=== PATIENT | male | born 1945 | race Caucasian/White ===

== ENCOUNTER 2020-11-02 10:27 | Outpatient (REF) | payer MEDICARE, SELFPAY ==
--- NOTE | ~2020-11-02 | XR_ITS ---
EXAMINATION: XR hand wrist LT CLINICAL INFORMATION: Fracture of unspecified carpal bone, unspecified wrist, initial encounter for closed fracture COMPARISON: None. TECHNIQUE: PA, oblique, lateral, and navicular views of the left hand and wrist FINDINGS: No acute fracture or dislocation seen. There is chronic appearing remodeling and erosion of the distal radius. There is widening of the scapholunate interval with interposition of the capitate. There is marked osteophytosis of the lateral aspect of the distal radius. There is mild degenerative arthrosis of the first carpometacarpal joint. There is severe joint space narrowing and slight subluxation of the distal phalanges at the second and fifth distal interphalangeal joints. XR/XR hand wrist LT IMPRESSION: No acute osseous abnormality seen. There is chronic appearing remodeling and erosion of the distal radial articular surface with widening of the scapholunate interval and interposition of the capitate. 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
== END 2020-11-02 10:28 | disposition home or self-care (01) ==
LOC: HO.XRAY 10:27
PROVIDERS: Visit Provider Internal Medicine
DX: S62.109A Fracture of unspecified carpal bone, unspecified wrist, initial encounter for closed fracture (principal)
CPT/HCPCS: 73110; 73130

== ENCOUNTER → 2020-11-11 09:31 | Outpatient (BNVA) | payer MEDICARE, SELFPAY | PROVIDERS: Visit Provider Orthopaedic Surgery | DX: R20.0 Anesthesia of skin (principal); R20.2 Paresthesia of skin; M19.132 Post-traumatic osteoarthritis, left wrist | CPT/HCPCS: 99202 ==

== ENCOUNTER 2020-12-23 08:56 | Outpatient (REF) | payer MEDICARE, SELFPAY ==
--- NOTE | 2020-12-23 08:59 | EMG_ITS ---
This is a 75-year-old man with 1-year history of numbness and tingling in the left hand. He fell 2 months ago, but did not have fracture. He has a right wrist fracture 20 years ago and has chronic pain there. The numbness and tingling are confined to the left hand. PHYSICAL EXAMINATION: On examination, he is alert and oriented with normal intellectual functions. Cranial nerves II through XII are normal. Muscle tone and strength are normal in all 4 extremities. Deep tendon reflexes symmetrical. Plantar response are flexor. There is mild weakness of the abductor pollicis brevis. IMPRESSION: Carpal tunnel syndrome. Nerve conduction EMG study: Moderate to severe carpal tunnel syndrome on the left. Normal EMG of the left C5-T1 innervated muscles. MD DEVIKA Colunga/INEZ / [id number]
== END 2020-12-23 08:57 | disposition home or self-care (01) ==
LOC: HO.NEURO 08:56
PROVIDERS: Visit Provider Orthopaedic Surgery
DX: R20.0 Anesthesia of skin (principal); R20.2 Paresthesia of skin
CPT/HCPCS: 95885; 95911

== ENCOUNTER → 2021-01-20 09:13 | Outpatient (BNVA) | payer MEDICARE, SELFPAY | PROVIDERS: PCP Physician Assistant; Referring Provider Internal Medicine; Visit Provider Internal Medicine | DX: Z13.89 Encounter for screening for other disorder (principal) | CPT/HCPCS: 93005; 99212 ==

== ENCOUNTER 2021-01-27 13:49 | Outpatient (REF) | payer MEDICARE, SELFPAY ==
--- NOTE | ~2021-01-27 | US_ITS ---
EXAMINATION: US EXTRACRANIAL CAROTID DUPLEX, BILATERAL CLINICAL INFORMATION: Stenosis and occlusion of the carotid arteries COMPARISON: None TECHNIQUE: Real-time ultrasound and Doppler techniques (integrating B-mode 2-D vascular images, Doppler spectral analysis and color-flow Doppler imaging) were utilized to interrogate the extracranial carotid arteries, the vertebral arteries and proximal subclavian arteries bilaterally. The degree of stenosis is determined by criteria similar to NASCET. FINDINGS: Right Side: 1. There is calcified atherosclerotic plaque seen in the bifurcation/proximal ICA region. 2. The common carotid artery PSV proximally is 91.9 cm/s and distally 78.9 cm/s. 3. The proximal internal carotid artery velocities are 161 cm/s systolic and 46.1 cm/s diastolic. 4. The proximal external carotid artery PSV is 160 cm/s. 5. The vertebral artery shows antegrade flow. 6. The subclavian artery waveforms are normal. Left Side: 1. There is calcified atherosclerotic plaque seen in the bifurcation/proximal ICA region. 2. The common carotid artery PSV proximally is 88.4 cm/s and distally 59.7 cm/s. 3. The proximal internal carotid artery velocities are 318 cm/s systolic and 58.8 cm/s diastolic. 4. The proximal external carotid artery PSV is 225.0 cm/s. 5. The vertebral artery shows antegrade flow. 6. The subclavian artery waveforms are normal. US/US carotid duplex BI IMPRESSION: 1. RIGHT: Moderate, hemodynamically significant stenosis of the proximal right internal carotid artery corresponding to a 50-79% stenosis by velocity criteria. 2. LEFT: Moderate, hemodynamically significant stenosis of the proximal left internal carotid artery corresponding to a 50-79% stenosis by velocity criteria.
== END 2021-01-27 13:50 | disposition home or self-care (01) ==
LOC: HO.US 13:49
PROVIDERS: Visit Provider Internal Medicine
DX: I65.23 Occlusion and stenosis of bilateral carotid arteries (principal)
CPT/HCPCS: 93880

== ENCOUNTER 2021-02-04 08:45 | Outpatient (REF) | payer MEDICARE, SELFPAY ==
--- NOTE | 2021-02-04 09:30 | ECG_ITS ---
Hook-up date: 2021-02-04 15:29:00 Duration: 47:59:00 Test Indications: PALPITATIONS Medications: 821014 QRS complexes 816 Ventricular ectopics which represent <1 % of total QRS comp. 152 Supraventricular ectopics which represent <1 % of total QRS comp. * Paced QRS complexs which represent % of total QRS comp. VENTRICULAR ECTOPY 778 Isolated 24 Bigeminal Cycles 20 Couplets 2 Runs 9 Beats in Runs 6 Beats LONGEST at 74 BPM at 23:53:45 2021-02-04 3 Beats FASTEST at 83 BPM at 00:08:19 2021-02-06 SUPRAVENTRICULAR ECTOPY 114 Isolated 5 Couplets 6 Runs 28 Beats in Runs 9 Beats LONGEST at 67 BPM at 01:10:52 2021-02-06 3 Beats FASTEST at 141 BPM at 10:17:11 2021-02-06 HEART RATES 53 MIN at 20:17:23 2021-02-04 70 AVG 118 MAX at 15:02:02 2021-02-05 LONGEST RR 1.3200 secs at 22:10:35 2021-02-04 S-T LEVELS Channel 1 - 128 mm at 15:29:00 2021-02-04 - 128 mm at 15:29:00 2021-02-04 Channel 2 - 128 mm at 15:29:00 2021-02-04 - 128 mm at 15:29:00 2021-02-04 Channel 3 - 128 mm at 03:44:81 -- - 128 mm at 03:44:81 Basic rhythm Normal sinus rhythm No long pause or profound bradycardia Frequent Sinus bradycardia , 29% of time HR < 60 bpm Occasional Premature ventricular complexes 2 brief runs of AIVR at 83 bpm Patient did not report any symptoms in the diary Referred By: Haim Wilson Overread By: MIGUEL CATHERINE MD
[2021-02-04 10:14] LABS: Alanine Aminotransferase 17 U/L (0-40); Albumin Level 3.7 g/dL (3.5-5.0); Alkaline Phosphatase 57 U/L (39-117); Anion Gap 12 (12-20); Aspartate Amino Transferase 27 U/L (5-37); Bilirubin Total 0.8 mg/dL (0.0-1.0); Blood Urea Nitrogen 20 mg/dL (9-16); Calcium 8.8 mg/dL (8.4-10.2); Carbon Dioxide 27 mmol/L (22-29); Chloride 105 mmol/L (96-108); Cholesterol 100 mg/dL; Estimated Glomerular Filt Rate > 60; Glucose Fasting 94 mg/dL (60-99); HDL Cholesterol 37 mg/dL; LDL Cholesterol Calculated 43 mg/dl; Potassium 4.3 mmol/L (3.3-5.1); Sodium 140 mmol/L (135-145); Total Protein 6.3 g/dL (6.5-8.0); Triglycerides 102 mg/dL
== END 2021-02-04 08:46 | disposition home or self-care (01) ==
LOC: HO.CARD 08:45
PROVIDERS: Absent Provider Internal Medicine; PCP Internal Medicine; Visit Provider Nurse Practitioner Family
DX: I65.23 Occlusion and stenosis of bilateral carotid arteries (principal); R00.2 Palpitations
CPT/HCPCS: 36415; 80053; 80061; 93226

== ENCOUNTER → 2021-02-12 12:43 | Outpatient (REF) | payer MEDICARE, SELFPAY ==
--- NOTE | 2021-02-12 12:46 | CA_ITS ---
Transthoracic Echocardiogram Patient (Last, First, Middle): Ag Andrade D Gender: Male Date of : 1945 Age: 75 Procedure Date: 02/12/2021 Procedure Type: Transthoracic Echocardiogram Location: OP Height: 177.8 cm Weight: 63.5 kg BSA: 1.79 m2 Heart Rate: bpm BP: 140 / 80 mmHg Park [employer] Ranger: SACHIN Referring MD: Haim Wilson MD Symptoms: I35.0 - Nonrheumatic aortic (valve) stenosis Study Quality: Fair Conclusions: - Normal left ventricular size and systolic function. - E/E prime ratio is between 8 and 15 consistent with indeterminate filling pressures. - Normal right ventricular cavity size and systolic function. - There is mild to moderate aortic valve stenosis. The peak aortic velocity is 2.71 m/s. The aortic valve area is 1.68 cm2. - There is moderate mitral annular calcification. There is trace mitral valve regurgitation. - There is a small loculated pericardial effusion overlying the right ventricle. There are no definitive echocardiographic findings of tamponade physiology. Findings Left Ventricle Normal left ventricular size and systolic function. The visually estimated ejection fraction is between 65-70%. There is no evidence of regional wall motion abnormalities. Abnormal diastolic function is noted. Spectral Doppler is indicative of an impaired relaxation filling pattern. E/E prime ratio is between 8 and 15 consistent with indeterminate filling pressures. Right Ventricle Normal right ventricular cavity size and systolic function. Atria Both atria are normal in size. Aortic Valve There is mild calcification of the aortic valve. There is mild thickening of the aortic valve. There is mild to moderate aortic valve stenosis. The peak aortic velocity is 2.71 m/s. The aortic valve area is 1.68 cm2. There is no aortic valve regurgitation. Mitral Valve There is moderate mitral annular calcification. There is trace mitral valve regurgitation. There is no mitral valve stenosis. Pulmonic Valve The pulmonic valve is likely normal. Tricuspid Valve Normal tricuspid valve structure and function. There is trace tricuspid valve regurgitation. Normal right atrial pressure. There is no evidence of pulmonary hypertension. Great Vessels The pulmonary artery was not well visualized. There is mild dilatation of the ascending aorta. Venous The inferior vena cava is normal in size and collapses greater than 50% with inspiration. Pericardium/Pleural There is a small loculated pericardial effusion overlying the right ventricle. There are no definitive echocardiographic findings of tamponade physiology. Prior Study Comparison Changes noted compared to prior study dated: 10/30/2019. Mild to moderate present. Small pericardial effusion noted. Measurements 2D Linear Measurements IVSd: 1.24 0.6-0.9/0.6-1.0 cm LVIDd: 3.87 3.9-5.3/4.2-5.9 cm LVIDd Index: 2.16 2.4-3.2/2.2-3.1 cm/m2 LVIDs: 2.65 2.0-3.6 cm LVPWd: 1.14 0.7-1.1 cm Ao Root: 4.00 2.1-3.5 cm LA Diam: 3.20 2.7-3.8/3.0-4.0 cm LAIDs Index: 1.79 1.5-2.3 cm/m2 LV Mass: 193.63 67-162/88-224 g LV Mass Index: 108.17 43-95/49-115 g/m2 LVOT Diam: 2.10 3.0+(-)1.3 cm 2D Systolic Function EF 4C: 56.20 >55% EF 2C: 62.30 >55% EF BiP: 60.10 >55% Mitral Valve MV Pk E: 0.51 MV PK A: 0.83 MV Decel Time: 296.00 E/A: 0.60 E'Lateral: 4.13 E'Medial: 3.05 E/E' Med: 16.90 E/E' Lat: 12.40 PHT: 87.00 MVA PHT: 2.53 Decel [place]: 1.74 Aortic Valve AoV Pk Keith: 2.71 AoV Mn Keith: 1.59 AoV VTI: 0.46 AoV Pk Grad: 29.00 Aov Mn Grad: 13.00 WANDER Cont.VTI: 1.68 LVOT LVOT Pk Keith: 1.08 LVOT Mn Keith: 0.82 LVOT VTI: 0.22 LVOT Pk Grad: 5.00 LVOT Mn Grad: 3.00 LVOT Diam: 2.10 LVOT Area: 3.46 Diastolic Function MV Pk E: 0.51 MV Pk A: 0.83 E/A: 0.60 E'Medial: 3.05 E/E' Med: 16.90 E' Laterial: 4.13 E/E' Lat: 12.40 Tricuspid Valve TR Pk Keith: 2.29 TR Pk Grad: 21.00 RA Press: 3.00 RVSP: 24.00 Great Vessels Aorta Ao Root-2D: 4.00 2.0-3.7 cm Ao Asc: 3.90 2.1-3.4 cm Updated in Other Vendor System with Status of Final Sam Giang MD electronically signed on 02/14/2021 8:54:45 PM with status of Final
== END ==
LOC: HO.CARD 12:43
PROVIDERS: Visit Provider Internal Medicine
DX: I35.0 Nonrheumatic aortic (valve) stenosis (principal); I25.10 Atherosclerotic heart disease of native coronary artery without angina pectoris; I71.4 Abdominal aortic aneurysm, without rupture; I10 Essential (primary) hypertension; I65.23 Occlusion and stenosis of bilateral carotid arteries; R00.2 Palpitations; Z79.899 Other long term (current) drug therapy
CPT/HCPCS: 93005; 93306; 99212

== ENCOUNTER → 2021-02-23 14:47 | Outpatient (BNVA) | payer MEDICARE, SELFPAY | PROVIDERS: PCP Internal Medicine; Referring Provider Internal Medicine; Visit Provider Internal Medicine | DX: I25.10 Atherosclerotic heart disease of native coronary artery without angina pectoris (principal); I35.0 Nonrheumatic aortic (valve) stenosis; I77.810 Thoracic aortic ectasia; I71.4 Abdominal aortic aneurysm, without rupture; I10 Essential (primary) hypertension; I65.23 Occlusion and stenosis of bilateral carotid arteries; R00.2 Palpitations | CPT/HCPCS: 99212 ==

== ENCOUNTER 2021-03-15 10:42 | Emergency (ER) | payer MEDICARE, SELFPAY ==
[2021-03-15 10:51] VITALS: BP 168/96; PULSE 88; RESP 18; TEMP 36.6; O2SAT 98; BMI 20.7
--- NOTE | 2021-03-15 12:08 | ED_ITS ---
HPI - Wound/Laceration General Chief Complaint: Wound/Laceration Stated Complaint: HAND LACERATION Time Seen by Provider: 03/15/21 12:08 History of Present Illness HPI narrative: patient complains of skin tear to the back of the left hand when he cut it on a tree branch while gardening just this morning 2 hours ago, no numbness weakness or tingling, no joint pain, no problem moving fingers and wrist Related Data Previous Rx's Medication Instructions Recorded rosuvastatin 10 mg tablet 10 mg PO DAILY 90 Days #90 tab 09/28/20 omeprazole 20 mg capsule,delayed 20 mg PO DAILY #90 cap 11/11/20 release lisinopril 20 mg tablet 40 mg PO DAILY #180 cap 11/19/20 aspirin 81 mg tablet,delayed 81 mg PO DAILY #90 cap 12/09/20 release budesonide-formoterol HFA 160 2 puff PO BID #30.6 cap 12/18/20 mcg-4.5 mcg/actuation aerosol inhaler tamsulosin 0.4 mg capsule 0.8 mg PO DAILY #180 cap 12/24/20 albuterol sulfate 90 mcg/actuation 2 puff INHALATION Q6H PRN #8.5 cap 02/03/21 aerosol inhaler zolpidem 5 mg tablet 5 mg PO BEDTIME #90 tab 02/03/21 lorazepam 0.5 mg tablet 0.5 mg PO BEDTIME #30 tab 03/25/21 metoprolol succinate 50 mg 50 mg PO DAILY #90 tab 03/25/21 tablet,extended release 24 hr Allergies Allergy/AdvReac Type Severity Reaction Status Date / Time penicillin G [Penicillin G] Allergy Severe ANAPHYLAXIS Verified 11/02/20 10:14 penicillamine Allergy Unknown anaphylaxis Verified 11/02/20 10:14 penicillin V Allergy Unknown anphylaxis Verified 11/02/20 10:14 Review of Systems Review of Systems: Positive for left hand skin tear Negatives are no fever no chills no dizziness no weakness no headache no neck pain no back pain no numbness weakness or tingling no joint pains Yes all other systems are reviewed and are negative [facility] Past Medical History Source: nursing notes reviewed Medical History (Updated 03/16/21 @ 00:01 by Ryan Price) Abdominal aortic aneurysm without rupture Anxiety and depression 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 Father No problems noted. Social History Social History (Updated 02/23/21 @ 15:09 by EDUARDO Aranda) Alcohol intake: never Patient Tobacco Use Status: Never used Tobacco Physical Exam Vital Signs: Vital Signs: Last Vital Signs Temp 98 F 03/15/21 10:51 Pulse 88 03/15/21 10:51 Resp 18 03/15/21 10:51 BP 168/96 H 03/15/21 10:51 Pulse Ox 98 03/15/21 10:51 Body Mass Index 20.7 General appearance is no acute distress Head is normocephalic atraumatic Neck is supple Respiratory no distress Extremities the left hand dorsal hand has a 3 cm skin tear with no significant bleeding, the hand has full range of motion there is tongue no tenderness or swelling and neurovascular intact distal with normal tendon function on both flexion and extension Course Course Course Narrative: The left hand skin tears cleansed and irrigated with normal saline, it is explored for foreign body there is non The skin is peeled back with a tweezer into its appropriate place and then closed with Steri-Strips and a bandage was applied Discharge Plan Discharge Clinical Impression: Skin tear Patient Disposition: Home, Self-Care Additional Instructions: we taped the torn skin together tape can be removed in 7-10 days at primary doctor's office Best plan is do this at the primary doctor so he can check if the skin is healing and make sure he does not open the wound when he removes the tape Return any time for redness swelling any sign of infection You got a tetanus shot Prescriptions: No Action rosuvastatin 10 mg tablet 10 mg PO DAILY 90 Days Qty: 90 RF: 3 omeprazole 20 mg capsule,delayed release(DR/EC) 20 mg PO DAILY Qty: 90 RF: 1 lisinopril 20 mg tablet 40 mg PO DAILY Qty: 180 RF: 1 aspirin 81 mg tablet,delayed release (DR/EC) 81 mg PO DAILY Qty: 90 RF: 3 budesonide-formoterol [Symbicort] 160-4.5 mcg/actuation HFA aerosol inhaler 2 puff PO BID Qty: 30.6 RF: 1 tamsulosin 0.4 mg capsule 0.8 mg PO DAILY Qty: 180 RF: 0 albuterol sulfate 90 mcg/actuation HFA aerosol inhaler 2 puff inhalation Q6H PRN (Reason: for muscle spasm) Qty: 8.5 RF: 1 zolpidem 5 mg tablet 5 mg PO BEDTIME Qty: 90 RF: 0 lorazepam 0.5 mg tablet 0.5 mg PO BEDTIME Qty: 30 RF: 0 metoprolol succinate 50 mg tablet extended release 24 hr 50 mg PO DAILY Qty: 90 RF: 1 Interventions: ED Discharge Assessment Last Done: 03/15/21 13:22 Discharge Date/Time: 03/15/21 13:23
[2021-03-15] MEDS: Diphth,Pertus(ACell),Tet Adult 0.5 ML SYRINGE IM (12:41)
== END 2021-03-15 13:23 | disposition home or self-care (01) ==
PROVIDERS: Emergency Provider Emergency Medicine; PCP Internal Medicine
DX: S61.412A Laceration without foreign body of left hand, initial encounter (principal); W45.8XXA Other foreign body or object entering through skin, initial encounter; Y93.H2 Activity, gardening and landscaping; Y92.017 Garden or yard in single-family (private) house as the place of occurrence of the external cause; Y99.9 Unspecified external cause status
CPT/HCPCS: 90471; 90715; 99283; 99284

== ENCOUNTER 2021-04-26 07:42 | Outpatient (REF) | payer MEDICARE, SELFPAY ==
--- NOTE | ~2021-04-26 | US_ITS ---
EXAMINATION: US ABDOMINAL AORTA CLINICAL INFORMATION: This is a 76-year-old male with an abdominal aortic aneurysm. The patient is status post EVAR. COMPARISON: Comparison is made to the most recent study which is a CTA dated 07/06/2018 which measure the aneurysm as 9.2 x 8.9 cm. TECHNIQUE: Grayscale, color Doppler and spectral Doppler evaluation of the abdominal aorta. FINDINGS: There is a 9.7 x 9.6 cm abdominal aortic aneurysm present. The EVAR is seen centrally within the aneurysm. Blood flow is seen within the lumen. No definite blood flow is seen in the aneurysm sac to suggest an endoleak. Measurements of the aorta in maximum AP and transverse dimensions respectively are as follows: PROXIMAL: 2.6 x 2 point cm. MID: 9.7 x 9.6 cm. DISTAL: Could not be measured. The measurements of the common iliac arteries could not be obtained. US/US abdominal aortic aneurysm IMPRESSION: 1. There is a 9.7 x 9.6 cm infrarenal abdominal aortic aneurysm. The patient is status post EVAR. No endoleak could be detected by ultrasound. Although different techniques were utilized, the aneurysm appears increased in size based on a previous CT scan which measured at 9.2 x 8.9 cm.
== END 2021-04-26 07:43 | disposition home or self-care (01) ==
LOC: HO.US 07:42
PROVIDERS: Visit Provider Surgery Vascular Surgery
DX: I65.23 Occlusion and stenosis of bilateral carotid arteries (principal)
CPT/HCPCS: 76706

== ENCOUNTER 2022-01-03 11:04 | Outpatient (REF) | payer MEDICARE, SELFPAY ==
[2022-01-03 11:52] LABS: Hematocrit 39.9 % (42.0-52.0); Hemoglobin 12.8 g/dl (14.0-18.0); Mean Corpuscular HGB Conc 32.1 g/dl (31.0-36.0); Mean Corpuscular Hemoglobin 29.5 pg (27.0-33.0); Mean Corpuscular Volume 91.9 fL (80.0-98.0); Mean Platelet Volume 12.9 fL (9.4-12.4); Platelet Count 125 X10*3/uL (160-400); Red Blood Count 4.34 X10*6/uL (4.60-5.80); Red Cell Distribution Width 14.8 % (11.0-16.0); White Blood Count 8.1 X10*3/uL (4.8-10.8)
[2022-01-03 12:41] LABS: Alanine Aminotransferase 17 U/L (0-40); Albumin Level 3.5 g/dL (3.5-5.0); Alkaline Phosphatase 58 U/L (39-117); Anion Gap 10 (12-20); Aspartate Amino Transferase 26 U/L (5-37); Bilirubin Direct 0.4 mg/dL (0.0-0.5); Bilirubin Total 0.9 mg/dL (0.0-1.0); Blood Urea Nitrogen 23 mg/dL (9-16); Calcium 8.7 mg/dL (8.4-10.2); Carbon Dioxide 28 mmol/L (22-29); Chloride 105 mmol/L (96-108); Cholesterol 104 mg/dL; Estimated Glomerular Filt Rate > 60; Glucose Random 88 mg/dL (60-115); HDL Cholesterol 41 mg/dL; LDL Cholesterol Calculated 46 mg/dl; Potassium 4.3 mmol/L (3.3-5.1); Sodium 139 mmol/L (135-145); Total Protein 6.3 g/dL (6.5-8.0); Triglycerides 86 mg/dL
[2022-01-03 12:45] LABS: Thyroid Stimulating Hormone 2.69 uIU/mL (0.32-4.0)
[2022-01-03 12:50] LABS: Appearance Urine CLEAR; Color Urine YELLOW; Glucose Urine UA NEG (NEG); Leukocyte Esterase Urine NEG (NEG); Nitrite Urine NEG (NEG); PH 6.5 (5.0-8.0); Specific Gravity - Urine 1.015 (1.005-1.025); Urine Blood TRACE (NEG); Urine Ketones 5 MG/DL (NEG); Urine Protein NEG (NEG-TRACE)
[2022-01-03 13:52] LABS: Hyaline Casts Urine 0-2 /LPF; Mucus Urine 1+ /LPF; Squamous Epithelial Cell Urine TRACE /LPF; WBC Urine 0-2 /HPF (0-4)
== END 2022-01-03 11:05 | disposition home or self-care (01) ==
LOC: HO.LAB 11:04
PROVIDERS: PCP Internal Medicine; Visit Provider Internal Medicine
DX: F41.1 Generalized anxiety disorder (principal); I10 Essential (primary) hypertension
CPT/HCPCS: 36415; 80048; 80061; 80076; 81001; 84443; 85027

== ENCOUNTER 2022-09-09 16:05 | Emergency (ER) | payer MEDICARE, SELFPAY | END 2022-09-09 18:35 | disposition left against medical advice (07) | PROVIDERS: Emergency Provider Emergency Medicine; PCP Internal Medicine | DX: M79.671 Pain in right foot (principal); R60.0 Localized edema ==

== ENCOUNTER 2022-09-28 08:12 | Outpatient (REF) | payer MEDICARE, SELFPAY ==
[2022-09-28 10:52] LABS: MANUAL DIFF FLAG NO
[2022-09-28 11:06] LABS: Basophils Percent Auto 0.2 % (0-2); Eosinophils Absolute Auto 0.2 X10*3/uL (0.0-0.4); Eosinophils Percent Auto 1.9 % (0-4); Hematocrit 41.2 % (42.0-52.0); Hemoglobin 13.5 g/dl (14.0-18.0); Imm Gran Abs Auto 0.03 X10*3/uL (0.00-0.03); Imm Gran Pct Auto 0.3 % (0.0-0.4); Lymphocytes Absolute Auto 1.6 X10*3/uL (1.2-4.9); Lymphocytes Percent Auto 17.2 % (20-40); Mean Corpuscular HGB Conc 32.8 g/dl (31.0-36.0); Mean Corpuscular Hemoglobin 29.9 pg (27.0-33.0); Mean Corpuscular Volume 91.4 fL (80.0-98.0); Mean Platelet Volume 12.8 fL (9.4-12.4); Monocytes Absolute Auto 0.9 X10*3/uL (0.1-1.2); Monocytes Percent Auto 10.4 % (2-11); Neutrophils Absolute Auto 6.3 x10*3/uL (2.0-8.3); Platelet Count 130 X10*3/uL (160-400); Red Blood Count 4.51 X10*6/uL (4.60-5.80); Red Cell Distribution Width 14.1 % (11.0-16.0); White Blood Count 9.1 X10*3/uL (4.8-10.8)
[2022-09-28 11:15] LABS: Alanine Aminotransferase 16 U/L (0-40); Albumin Level 3.6 g/dL (3.5-5.0); Alkaline Phosphatase 63 U/L (39-117); Anion Gap 11 (12-20); Aspartate Amino Transferase 25 U/L (5-37); Bilirubin Total 0.9 mg/dL (0.0-1.0); Blood Urea Nitrogen 20 mg/dL (9-16); Calcium 9.1 mg/dL (8.4-10.2); Carbon Dioxide 30 mmol/L (22-29); Chloride 102 mmol/L (96-108); Cholesterol 131 mg/dL; Estimated Glomerular Filt Rate > 60; Glucose Fasting 98 mg/dL (60-99); Glucose Random 97 mg/dL (60-115); HDL Cholesterol 41 mg/dL; LDL Cholesterol Calculated 73 mg/dl; Potassium 4.2 mmol/L (3.3-5.1); Sodium 139 mmol/L (135-145); Total Protein 6.4 g/dL (6.5-8.0); Triglycerides 86 mg/dL
[2022-09-28 11:40] LABS: TSH reflex Free T4 4.44 uIU/mL (0.32-4.0)
[2022-09-28 13:16] LABS: Free T4 (Free Thyroxine) 0.88 ng/dL (0.71-1.85)
== END 2022-09-28 08:13 | disposition home or self-care (01) ==
LOC: HO.10HDL 08:12
PROVIDERS: Absent Provider Nurse Practitioner Family; Visit Provider Nurse Practitioner Family
DX: Z13.0 Encounter for screening for diseases of the blood and blood-forming organs and certain disorders involving the immune mechanism (principal); Z13.1 Encounter for screening for diabetes mellitus; E03.9 Hypothyroidism, unspecified; E78.00 Pure hypercholesterolemia, unspecified; I10 Essential (primary) hypertension
CPT/HCPCS: 36415; 80048; 80053; 80061; 84439; 84443; 85025

== ENCOUNTER 2022-10-17 09:41 | Outpatient (REF) | payer MEDICARE, SELFPAY ==
--- NOTE | ~2022-10-17 | US_ITS ---
EXAMINATION: US EXTRACRANIAL CAROTID DUPLEX, BILATERAL CLINICAL INFORMATION: Carotid stenosis. COMPARISON: 01/27/2021 TECHNIQUE: Real-time ultrasound and Doppler techniques (integrating B-mode 2-D vascular images, Doppler spectral analysis and color-flow Doppler imaging) were utilized to interrogate the extracranial carotid arteries, the vertebral arteries and proximal subclavian arteries bilaterally. The degree of stenosis is determined by criteria similar to NASCET. FINDINGS: RIGHT SIDE: 1. There is moderate atherosclerotic plaque seen in the bifurcation/proximal ICA region. 2. The common carotid artery PSV proximally is 76 cm/s and distally 62 cm/s. 3. The proximal internal carotid artery velocities are 148 cm/s systolic and 37 cm/s diastolic. 4. The proximal external carotid artery PSV is 230 cm/s. 5. The vertebral artery shows antegrade flow. 6. The subclavian artery waveforms are normal. LEFT SIDE: 1. There is moderate atherosclerotic plaque seen in the bifurcation/proximal ICA region. 2. The common carotid artery PSV proximally is 75 cm/s and distally 58 cm/s. 3. The proximal internal carotid artery velocities are 386 cm/s systolic and 103 cm/s diastolic (previously 318/59). 4. The proximal external carotid artery PSV is 260 cm/s. 5. The vertebral artery shows antegrade flow. 6. The subclavian artery waveforms are normal. US/US carotid duplex BI IMPRESSION: 1. RIGHT: Minimal, non-hemodynamically significant stenosis of the proximal right internal carotid artery corresponding to a < 50% stenosis by velocity criteria. 2. LEFT: Moderate, hemodynamically significant stenosis of the proximal left internal carotid artery corresponding to a 50-99 percent stenosis by velocity criteria. 3. Bilateral external carotid artery stenoses. 4. Compared to the 01/27/2021 study, there has been no significant interval change in disease categories.
--- NOTE | ~2022-10-17 | US_ITS ---
EXAMINATION: US RETROPERITONEAL LIMITED (AORTA) CLINICAL INFORMATION: Status post EVAR. COMPARISON: US retroperitoneal limited (aorta) 04/26/2021. TECHNIQUE: Mishra-scale, color Doppler and spectral Doppler evaluation of the abdominal aorta. FINDINGS: The measurements of the aorta in maximum AP and transverse dimensions respectively are as follows: Proximal: 2.2 x 3.1 cm. Mid: 80.7 x 8.7 cm. Distal: 8.3 x 10.3 cm. PSV: 30 cm/s. The measurements of the common iliac arteries in maximum AP and TRV dimensions are as follows: Right Common Iliac Artery: 1.6 x 1.3 cm. Left Common Iliac Artery: 1.5 x 1.5 cm. US/US abdominal aortic aneurysm IMPRESSION: Endovascular aortic repair. The aneurysm sac measures 8.7 x 7.1 c. No visible color-flow within the excluded aneurysm sac. Previously, the sac measured 9.7 x 9.6 cm.
== END 2022-10-17 09:42 | disposition home or self-care (01) ==
LOC: HO.US 09:41
PROVIDERS: PCP Internal Medicine; Visit Provider Surgery Vascular Surgery
DX: I65.23 Occlusion and stenosis of bilateral carotid arteries (principal); Z95.828 Presence of other vascular implants and grafts
CPT/HCPCS: 76706; 93880

== ENCOUNTER → 2022-10-26 13:42 | Outpatient (REF) | payer MEDICARE, SELFPAY ==
--- NOTE | 2022-10-26 13:45 | CA_ITS ---
Transthoracic Echocardiogram Patient (Last, First, Middle): Ag Andrade D Gender: Male Date of : 1945 Age: 77 Procedure Date: 10/26/2022 Procedure Type: Transthoracic Echocardiogram Location: OP Height: 175.26 cm Weight: 58.97 kg BSA: 1.72 m2 Heart Rate: bpm BP: 130 / 70 mmHg Carton Marker Machine: TO Referring MD: Haim Wilson MD Script Supervisor: Jayme Valdovinos MD Symptoms: I35.0 - Nonrheumatic aortic (valve) stenosis Study Quality: Fair ECG Rhythm: Sinus Conclusions: - 1. Normal LV systolic function with impaired relaxation filling pattern with moderate asymmetric septal hypertrophy 2. Moderate calcific aortic stenosis 3. Moderate mitral annular calcification 4. Normal RV systolic pressure 5. No gross pericardial effusion Findings Left Ventricle Normal left ventricular size, thickness, and systolic function. The visually estimated ejection fraction is between 65-70%. Spectral Doppler is indicative of an impaired relaxation filling pattern. There is moderate septal asymmetric hypertrophy. Right Ventricle Normal right ventricular cavity size and systolic function. Atria The left atrium is normal in size. Interatrial shunt cannot be excluded. The right atrium is normal in size. Aortic Valve There is moderate calcification of the aortic valve. There is moderate aortic valve stenosis. The peak aortic gradient is 39 mmHg.The mean gradient is 20 mmHg. The aortic valve area is 1.41 cm2. There is trace (trivial) aortic valve regurgitation. Mitral Valve There is mild anterior and moderate posterior mitral leaflet thickening. There is moderate mitral annular calcification. There is trace mitral valve regurgitation. There is no mitral valve stenosis. Pulmonic Valve The pulmonic valve was not well visualized. Tricuspid Valve Normal tricuspid valve structure. There is mild tricuspid valve regurgitation. The right ventricular systolic pressure is normal. The right ventricular systolic pressure is 25 mmHg. Normal right atrial pressure. There is no evidence of pulmonary hypertension. Great Vessels All visible segments of the aorta are normal in size. The pulmonary artery was not well visualized. Venous The inferior vena cava is normal in size and collapses greater than 50% with inspiration. Pericardium/Pleural There is no evidence of pericardial effusion. Prior Study Comparison Changes noted compared to prior study dated: 02/12/2021. aortic stenosis is of moderate severity Measurements 2D Linear Measurements IVSd: 1.52 0.6-0.9/0.6-1.0 cm LVIDd: 3.90 3.9-5.3/4.2-5.9 cm LVIDd Index: 2.27 2.4-3.2/2.2-3.1 cm/m2 LVIDs: 2.23 2.0-3.6 cm LVPWd: 1.03 0.7-1.1 cm LA Diam: 3.60 2.7-3.8/3.0-4.0 cm LAIDs Index: 2.09 1.5-2.3 cm/m2 LV Mass: 217.38 67-162/88-224 g LV Mass Index: 126.38 43-95/49-115 g/m2 LVOT Diam: 2.20 3.0+(-)1.3 cm Mitral Valve MV Pk E: 0.49 MV PK A: 0.93 MV Decel Time: 273.00 E/A: 0.50 E'Lateral: 3.70 E'Medial: 4.13 E/E' Med: 11.80 E/E' Lat: 13.20 PHT: 80.00 MVA PHT: 2.75 Decel Gregory: 1.79 Aortic Valve AoV Pk Keith: 3.12 AoV Mn Keith: 2.05 AoV VTI: 0.62 AoV Pk Grad: 39.00 Aov Mn Grad: 20.00 WANDER Cont.VTI: 1.41 LVOT LVOT Pk Keith: 1.03 LVOT Mn Keith: 0.70 LVOT VTI: 0.23 LVOT Pk Grad: 4.00 LVOT Mn Grad: 2.00 LVOT Diam: 2.20 LVOT Area: 3.80 Diastolic Function MV Pk E: 0.49 MV Pk A: 0.93 E/A: 0.50 E'Medial: 4.13 E/E' Med: 11.80 E' Laterial: 3.70 E/E' Lat: 13.20 Right Ventricle TAPSE (mm): 22.40 TVS' Keith: 9.79 Tricuspid Valve TR Pk Keith: 2.36 TR Pk Grad: 22.00 RA Press: 3.00 RVSP: 25.00 Great Vessels Aorta Sinus of Valsalva: 3.76 2.0-3.5 cm Ao Asc: 3.20 2.1-3.4 cm Updated in Other Vendor System with Status of Final Jayme Valdovinos MD electronically signed on 10/26/2022 4:46:05 PM with status of Final
== END ==
LOC: HO.CARD 13:42
PROVIDERS: PCP Internal Medicine; Visit Provider Internal Medicine
DX: I35.0 Nonrheumatic aortic (valve) stenosis (principal)
CPT/HCPCS: 93306

== ENCOUNTER → 2023-01-11 13:45 | Outpatient (BNVA) | payer MEDICARE, SELFPAY | PROVIDERS: PCP Internal Medicine; Referring Provider Internal Medicine; Visit Provider Internal Medicine | DX: I25.10 Atherosclerotic heart disease of native coronary artery without angina pectoris (principal); I35.0 Nonrheumatic aortic (valve) stenosis; I77.810 Thoracic aortic ectasia; I10 Essential (primary) hypertension; I71.40 Abdominal aortic aneurysm, without rupture, unspecified | CPT/HCPCS: 93005; 99212 ==

== ENCOUNTER 2023-07-27 10:48 | Outpatient (AMB) | payer MEDICARE, SELFPAY ==
[2023-07-27 10:55] VITALS: BP 118/72; PULSE 79; O2SAT 94; BMI 19.6
--- NOTE | 2023-07-27 10:55 | AM.OFFVISMDC ---
Intake Vital Signs 07/27/23 10:55 Height 5 ft 9 in Weight 133 lb BMI 19.6 BP 118/72 Blood Pressure Location Lt brachial Position Sitting Pulse 79 Pulse Source Pulse Oximeter Pulse Oximetry (%) 94 Oxygen Delivery Method Room Air Intake Visit Reasons: [facility] Call Center Dispatcher Required: No Allergies penicillin G [Penicillin G] Allergy (Severe, Verified 07/27/23 10:56) ANAPHYLAXIS penicillamine Allergy (Unknown, Verified 07/27/23 10:56) anaphylaxis penicillin V Allergy (Unknown, Verified 07/27/23 10:56) anphylaxis HPI HPI Comments History of Present Illness Details 78-year-old male past medical history significant for GERD, BPH, generalized anxiety disorder, hypertension, hypercholesteremia, COPD, hypothyroid, CVD and peripheral vascular disease. Patient presents today for intial annual wellness visit Patient continues to follow with vascular at [facility] and follows with Dr. Wilson residential care officer. Offered referral to counseling for history of anxiety and positive PHQ-9, however patient declined. Healthcare proxy MOLST forms reviewed with patient, patient reports he believes he has healthcare proxy and MOLST forms completed at home patient advised to bring in copies to next appointment to be scanned into record. [place] of care was reviewed with patient patient was provided with a written screening schedule. TDAP and pna current. Flu shot given in office today Eye exam recommended [facility] Medical History (Updated 09/16/22 @ 08:04 by SHELTON Guerrero) Peripheral vascular disease Onychomycosis Atherosclerotic cardiovascular disease Ex-smoker Essential hypertension Abdominal aortic aneurysm without rupture Ascending aorta dilatation Non-rheumatic aortic stenosis Erectile dysfunction Anxiety and depression Benzodiazepine dependence Hip osteoarthritis Hypothyroid COPD (chronic obstructive pulmonary disease) Thoracic aortic aneurysm Hypercholesteremia Insomnia GERD (gastroesophageal reflux disease) BPH loc w/o ur obs/LUTS Surgical History History of hernia surgery History of hip replacement Family History Mother No problems noted. Father No problems noted. Social History Housing: House Alcohol intake: never Patient Tobacco Use Status: Former Tobacco user e-Cigarette/Vaping Use: Never Used Second Hand Smoke Exposure: No service: No Current occupational status: retired Cognitive needs: Yes (cane) Hearing needs: No Vision needs: Yes (glasses) Questionnaire Medicare Wellness Checkup What is your age?: 78 or older What gender do you identify with?: male During the past 4 weeks, how much have you been bothered by emotional problems such as feeling anxious, depressed, irritable, sad or downhearted, and blue?: slightly During the past 4 weeks, has your physical & emotional health limited your social activities with family, friends, neighbors, or groups?: not at all During the past 4 weeks, how much bodily pain have you generally had?: very mild pain During the past 4 weeks, was someone available to help you if you needed & wanted help?: yes, as much as I wanted During the past 4 weeks, what was the hardest physical activity you could do for at least 2 minutes?: moderate Can you get to places out of walking distance without help? (For eg., can you travel alone on buses, taxis or drive your car?): Yes Can you go shopping for groceries or clothes without someone's help?: Yes Can you prepare your own meals?: Yes Can you do your housework without help?: Yes Because of any health problems, do you need the help of another person with your personal care needs such as eating, bathing, dressing or getting around the house?: No Can you handle your own money without help?: Yes During the past 4 weeks, how would you rate your health in general?: good During the past 4 weeks how have things been going for you?: good & bad parts about equal Are you having difficulties driving your car?: no Do you always fasten your seat belt when you are in a car?: yes, usually Activity of Daily Living Bathing - sponge bath, tub bath or shower: receives no assistance (gets in/out by self, if usual bathing means Dressing - getting clothes from closets & drawers, including inner/outer garments & fasteners.: gets clothes & gets completely dressed without help Toileting - going to the 'toilet room' for urine/bowel elimination & cleaning self/arranging clothes: goes to toilet room, cleans self, arranges clothes without help Transfer: moves in & out of bed and chair without help (may use support object) Continence: controls urination/bowel movements completely by self Feeding: feeds self without help Total Score: 0 Information obtained from: patient Using telephone: independent Traveling: independent Shopping: independent Preparing meals: needs assistance ( cooks for him) Housework: independent Taking medicine: independent Managing money: independent PHQ-9 Over the last 2 weeks, how often have you been bothered by any of the following problems? 1. Little interest or pleasure in doing things: nearly every day 2. Feeling down, depressed, or hopeless: not at all 3. Trouble falling or staying asleep, or sleeping too much: several days 4. Feeling tired or having little energy: nearly every day 5. Poor appetite or overeating: several days 6. Feeling bad about yourself - or that you are a failure or have let yourself or your family down: not at all 7. Trouble concentrating on things, such as reading the newspaper or watching television: not at all 8. Moving or speaking so slowly that other people could have noticed. Or the opposite - being so fidgety or restless that you have been moving around a lot more than usual: not at all 9. Thoughts that you would be better off or of hurting yourself in some way: not at all Total score: 8 Depression Screening Interpretation: Positive Depression Screening Follow-up: Declines treatment Depression Screening Done: Yes 91838 - PHQ-9 Billing: Yes Source: Developed by Drs. Ted Del Rosario, Jeni Le, Tate Zeng and colleagues, with an educational cristopher from [employer]. Physical Exam Vital Signs: Last Vital Signs Pulse 79 07/27/23 10:55 BP 118/72 07/27/23 10:55 Pulse Ox 94 07/27/23 10:55 Oxygen Delivery Method Room Air 07/27/23 10:55 BMI result Body Mass Index 19.6 Const General: cooperative and no acute distress Orientation/consciousness: patient oriented x3 HEENT Ears: other (whisper test: pass) Neuro General: patient oriented x3 Gait exam (Neuro): Normal gait present Coordination: tandem gait normal and Romberg test negative Office Procedures Flu Questionnaire Does the patient have a severe egg allergy?: No Does the patient have severe life threatening allergies?: No Does the patient have a fever or illness today?: No Has the patient ever had Guillain-Deerfield Syndrome?: No Has the patient ever had any past reaction to a flu shot?: No Immunizations flu vacc [id number] 6mos up(PF) 60 mcg(15 mcgx4)/0.5 mL IM syringe Performing Provider: SHELTON Guerrero [place] [facility] [place] [facility] Administered by: Sara Maria on 07/27/23 11:37 Dose Route Admin Location Dispensed Lot Number Expiration Date [place] Head Of Partner Development 0.5 mL IM Left Deltoid 0.5 mL [id number] 03/10/24 26148-917-25 [employer] VIS Given Date VIS Provided VIS Publication Date 07/27/23 Single Vaccine 21 Eligibility Eligibility Date Funding Source Not [facility] Eligible 07/27/23 Private Assessment & Plan Assessment & Plan (1) Peripheral vascular disease: Code(s): I73.9 - Peripheral vascular disease, unspecified Plan: Continue to follow vascular surgery. (2) Atherosclerotic cardiovascular disease: Code(s): I25.10 - Atherosclerotic heart disease of [place] coronary artery without angina pectoris Plan: Continue to follow with residential care officer. (3) Essential hypertension: Code(s): I10 - Essential (primary) hypertension Plan: Continue on lisinopril 40 mg daily. Follow low-salt diet and exercise. Blood pressure optimal in office today. (4) Medicare annual wellness visit, initial: Code(s): Z00.00 - Encounter for general adult medical examination without abnormal findings Plan: Follow-up in 1 year. Plan Follow-up in 1 year sooner if needed. Orders: Orders Complete Blood Count Auto Diff 07/27/23 Z13.0 - Encounter for screening for diseases of the blood and blood-forming organs and certain disorders involving the immune mechanism Comprehensive [place]. Panel Fast 07/27/23 I10 - Essential (primary) hypertension TSH reflex Free T4 07/27/23 Z13.29 - Encounter for screening for other suspected endocrine disorder Lipid Panel 07/27/23 Z13.220 - Encounter for screening for lipoid disorders Influenza [id number] Immunization 07/27/23 Z23 - Encounter for immunization Quality Reporting (2019) Depression/Bipolar (159/160/161/177) PHQ-9: Total score: 8 Coding Level of Care Code Medicare First (G0438) Diagnoses Peripheral vascular disease I73.9 Atherosclerotic cardiovascular disease I25.10 Essential hypertension I10 Medicare annual wellness visit, initial Z00.00 CPT Codes Advance Care Planning - Time spent: 1-15 minutes, not on file ([id number]) Advance Care Planning Who was present: Patient and significant other. Forms completed: Health Care Proxy and MOLST Time spent: 1-15 minutes, not on file Actual minutes spent: 2
== END 2023-07-27 11:42 | disposition home or self-care (01) ==
PROVIDERS: PCP Internal Medicine; Visit Provider Nurse Practitioner Family
DX: Z23 Encounter for immunization (principal)
CPT/HCPCS: 1124F; 90471; 90686; G0438

== ENCOUNTER 2024-01-11 14:56 | Outpatient (AMB) | payer MEDICARE, SELFPAY ==
--- NOTE | 2024-01-11 15:00 | MHC.PC.OV ---
Vital Signs 01/11/24 15:02 Height 5 ft 9 in Weight 133 lb 0.6 oz BMI 19.6 BP 142/90 H Blood Pressure Location Lt brachial Position Sitting Pulse 74 Pulse Source Pulse Oximeter Pulse Oximetry (%) 95 Oxygen Delivery Method Room Air Intake Visit Reasons: HTN, COPD, GERD F/U Intake Note: Patient is here to follow up on HTN, COPD, GERD Allergies penicillin G [Penicillin G] Allergy (Severe, Verified 01/21/24 20:28) ANAPHYLAXIS penicillamine Allergy (Unknown, Verified 01/21/24 20:28) anaphylaxis penicillin V Allergy (Unknown, Verified 01/21/24 20:28) anphylaxis Medication List - Last Reconciled 01/21/24 by Luiz Knowles MD albuterol sulfate 90 mcg/actuation 2 puffs PO Q6H PRN aspirin 81 mg PO DAILY atorvastatin (Lipitor) 5 mg (1/2 x 10 mg) PO BEDTIME 30 days budesonide-formoterol 160-4.5 mcg/actuation (Symbicort) 2 puffs PO BID lisinopril 40 mg (2 x 20 mg) PO DAILY 90 days lorazepam 0.5 mg PO BEDTIME PRN 30 days metoprolol succinate ER 50 mg PO DAILY omeprazole 20 mg PO DAILY tamsulosin 0.8 mg (2 x 0.4 mg) PO DAILY zolpidem 5 mg PO BEDTIME Tobacco use date assessed: 01/11/24 Fall risk assessment: No Falls in past year Last assessed Fall Risk: 01/11/24 Dental Screening Dental Screen Date: 01/11/24 Did you have a dental visit in the last 12 months?: No Did you have a dental problem in the last 6 months where you did not have access to dental care?: No HPI HTN, COPD, GERD F/U HPI Details 78 yr old male presents to the office for a follow up visit. Anxiety sx are well controlled on the medications prescribed. Has not had any bw recently done [facility] Medical History (Updated 09/16/22 @ 08:04 by SHELTON Guerrero) Peripheral vascular disease Onychomycosis Atherosclerotic cardiovascular disease Ex-smoker Essential hypertension Abdominal aortic aneurysm without rupture Ascending aorta dilatation Non-rheumatic aortic stenosis Erectile dysfunction Anxiety and depression Benzodiazepine dependence Hip osteoarthritis Hypothyroid COPD (chronic obstructive pulmonary disease) Thoracic aortic aneurysm Hypercholesteremia Insomnia GERD (gastroesophageal reflux disease) BPH loc w/o ur obs/LUTS Surgical History History of hernia surgery History of hip replacement Family History Mother No problems noted. Father No problems noted. Social History Housing: House Alcohol intake: never Patient Tobacco Use Status: Former Tobacco user e-Cigarette/Vaping Use: Never Used Second Hand Smoke Exposure: No service: No Current occupational status: retired Cognitive needs: Yes (cane) Hearing needs: No Vision needs: Yes (glasses) Questionnaire PHQ-9 Over the last 2 weeks, how often have you been bothered by any of the following problems? 1. Little interest or pleasure in doing things: not at all 2. Feeling down, depressed, or hopeless: several days 3. Trouble falling or staying asleep, or sleeping too much: not at all 4. Feeling tired or having little energy: not at all 5. Poor appetite or overeating: not at all 6. Feeling bad about yourself - or that you are a failure or have let yourself or your family down: not at all 7. Trouble concentrating on things, such as reading the newspaper or watching television: not at all 8. Moving or speaking so slowly that other people could have noticed. Or the opposite - being so fidgety or restless that you have been moving around a lot more than usual: not at all 9. Thoughts that you would be better off or of hurting yourself in some way: not at all Total score: 1 Depression Screening Interpretation: Negative Depression Screening Done: Yes 03678 - PHQ-9 Billing: Yes Source: Developed by Drs. Ted Del Rosario, Jeni Le, Tate Zeng and colleagues, with an educational cristopher from [facility]. Thrive Questionnaire Date Thrive assessed: 01/11/24 I am a: Patient What is your living situation today?: I have a steady place to live Within the past 12 months, did the food you bought not last and you didn't have the money to get more?: Never true Within the past 12 months, did you worry whether your food would run out before you got money to buy more?: Never true Do you have trouble paying for medicines?: No Do you have trouble getting transportation to medical appointments?: No Do you have trouble paying your heating and electricity bill?: No Do you have trouble taking care of your child, family member or friend?: No Do you have trouble with day-to-day activities such as bathing, preparing meals, shopping, managing finances, etc.?: No Are you currently unemployed and looking for a job?: No Are you interested in more education?: No Please select the resources that you would like help with: None Currently or been in a relationship where the following occur: no concerns reported THRIVE Score: 0 AUDIT C Alcohol Use Questionnaire (AUDIT-C) 1. How often do you have a drink containing alcohol?: Never 3. How often do you have six or more drinks on one occasion?: Never Total Score: 0 Score Reviewed/Action Taken: No KAITLIN-7 AMB Questionnaire KAITLIN-7 Date KAITLIN - 7 assessed: 01/11/24 Feeling nervous, anxious, or on edge: 0 = Not at all Not being able to stop or control worryin = Several days Worrying too much about different things: 0 = Not at all Trouble relaxin = Not at all Being so restless that it is hard to sit still: 0 = Not at all Becoming easily annoyed or irritable: 0 = Not at all Feeling afraid as if something awful might happen: 0 = Not at all Total KAITLIN-7 score (0-4 normal; 5-9 mild; 10-14 moderate; 15-21 severe): 1 Source: Developed by Drs. Ted Del Rosario, Jeni Le, Tate Zeng and colleagues, with an educational cristopher from [facility]. KAITLIN-7 Assessment Billing KAITLIN-7 Assessment Tool: KAITLIN-7 Assessment 15320 Physical exam (Primary Care) Vital Signs: Last Vital Signs Pulse 74 01/11/24 15:02 BP 142/90 H 01/11/24 15:02 Pulse Ox 95 01/11/24 15:02 Oxygen Delivery Method Room Air 01/11/24 15:02 BMI result Body Mass Index 19.6 Tobacco/Smoking Status: Tobacco use Status Tobacco use date assessed 01/11/24 01/11/24 15:02 Patient Tobacco Use Status Former Tobacco user 01/11/24 15:02 e-Cigarette/Vaping Use Never Used 01/11/24 15:02 PHQ-9: PHQ-9 Score PHQ-9: Total score 1 01/11/24 15:26 Depression Screening Interpretation: Negative Thrive Assessment: Date of Thrive Assessment Date Thrive assessed 01/11/24 01/11/24 15:02 Currently or been in a relationship where the following occur: no concerns reported Const General: cooperative and healthy appearing Nutritional Appearance: well nourished Orientation/consciousness: patient oriented x3 Limitations: no limitations HENMT Head: Yes normal to inspection Eyes General: appearance normal, both eyes and all related structures Neck Neck: Yes normal visual inspection Chest Chest palpation & inspection: normal palpation of entire chest wall Resp Effort & Inspection: normal respiratory effort Neuro General: patient oriented x3 Assessment and Plan Assessment & Plan (1) Generalized anxiety disorder: Code(s): F41.1 - Generalized anxiety disorder Plan: Continue medications at same dosage. (2) Essential (primary) hypertension: Code(s): I10 - Essential (primary) hypertension Plan: BP is in range. Continue medications at same dosage. BW has been ordered. Will call with results Coding Level of Care Code Est Pt Level 3 (10602) Diagnoses Generalized anxiety disorder F41.1 Essential (primary) hypertension I10 Additional Codes KAITLIN-7 Assessment Billing - KAITLIN-7 Assessment Tool: KAITLIN-7 Assessment 48254 ([id number])
[2024-01-11 15:02] VITALS: BP 142/90; PULSE 74; O2SAT 95; BMI 19.6
== END 2024-01-11 15:54 | disposition home or self-care (01) ==
PROVIDERS: PCP Internal Medicine; Visit Provider Internal Medicine
DX: I10 Essential (primary) hypertension (principal); F41.1 Generalized anxiety disorder; J44.9 Chronic obstructive pulmonary disease, unspecified
CPT/HCPCS: 99213

== ENCOUNTER 2024-01-19 08:41 | Outpatient (REF) | payer MEDICARE, SELFPAY ==
--- NOTE | ~2024-01-19 | US_ITS ---
EXAMINATION: US RETROPERITONEAL LIMITED (AORTA) CLINICAL INFORMATION: Abdominal aortic aneurysm without rupture. COMPARISON: Ultrasound aneurysm 10/17/2022 and 04/26/2021. CTA abdomen and pelvis 07/06/2018. TECHNIQUE: Mishra-scale, color Doppler and spectral Doppler evaluation of the abdominal aorta. Technically limited study secondary to bowel gas. FINDINGS: The measurements of the aorta in maximum AP and transverse dimensions respectively are as follows: Proximal: 2.6 x 2.7 cm, previously 2.2 x 3.1 cm. Mid: 7.3 x 9.1 cm, previously 8.7 x 8.7 cm. Distal: Could not be obtained, previously 8.2 x 10.3 cm. PSV: 33.7 cm/s. Status post endovascular aortic repair. Patches of color-flow within the aneurysm sac are favored to represent artifact. The measurements of the common iliac artery stents in maximum AP and TRV dimensions are as follows: Right Common Iliac Artery: 1.5 x 1.6 cm. Left Common Iliac Artery: 1.4 x 1.3 cm. US/US abdominal aortic aneurysm IMPRESSION: Endovascular aortic repair without significant change in abdominal aortic aneurysm. No evidence for color flow within the excluded aneurysm sac.
[2024-01-19 09:35] LABS: Hemoglobin 13.3 g/dl (14.0-18.0); Mean Corpuscular HGB Conc 32.4 g/dl (31.0-36.0); Mean Corpuscular Hemoglobin 29.8 pg (27.0-33.0); Mean Corpuscular Volume 91.9 fL (80.0-98.0); Mean Platelet Volume 12.5 fL (9.4-12.4); Platelet Count 128 X10*3/uL (160-400); Red Blood Count 4.46 X10*6/uL (4.60-5.80); White Blood Count 7.7 X10*3/uL (4.8-10.8)
[2024-01-19 10:11] LABS: Appearance Urine Clear; Color Urine Yellow; Glucose Urine UA Negative (Negative); Leukocyte Esterase Urine Trace (Negative); Nitrite Urine Negative (Negative); Specific Gravity - Urine 1.025 (1.005-1.025); UMIC TRIGGER UA YES; Urine Blood Trace (Negative); Urine Ketones Negative (Negative); Urine Protein Negative (Neg-Trace)
[2024-01-19 10:15] LABS: Bacteria Urine None Seen (None Seen); Hyaline Casts Urine 0-2 /LPF (0-2); Squamous Epithelial Cell Urine 0-2 /HPF (0-2); WBC Urine 0-5 /HPF (0-5)
[2024-01-19 10:27] LABS: Alanine Aminotransferase 12 U/L (0-40); Albumin Level 3.6 g/dL (3.5-5.0); Alkaline Phosphatase 57 U/L (39-117); Anion Gap 13 (12-20); Aspartate Amino Transferase 23 U/L (5-37); Bilirubin Direct 0.3 mg/dL (0.0-0.5); Bilirubin Total 0.7 mg/dL (0.0-1.0); Blood Urea Nitrogen 21 mg/dL (9-16); Carbon Dioxide 28 mmol/L (22-29); Chloride 104 mmol/L (96-108); Cholesterol 125 mg/dL (<200); Estimated Glomerular Filt Rate > 60; Glucose Random 95 mg/dL (60-115); HDL Cholesterol 37 mg/dL (>40); LDL Cholesterol Calculated 67 mg/dL (<100); Potassium 4.3 mmol/L (3.3-5.1); Sodium 141 mmol/L (135-145); Total Protein 6.8 g/dL (6.5-8.0); Triglycerides 105 mg/dL (<150)
[2024-01-19 10:30] LABS: Thyroid Stimulating Hormone 4.28 uIU/mL (0.32-4.0)
== END 2024-01-19 08:42 | disposition home or self-care (01) ==
LOC: HO.US 08:41
PROVIDERS: PCP Internal Medicine; Visit Provider Surgery Vascular Surgery
DX: I65.29 Occlusion and stenosis of unspecified carotid artery (principal); I10 Essential (primary) hypertension
CPT/HCPCS: 36415; 76706; 80048; 80061; 80076; 81001; 81003; 84443; 85027

== ENCOUNTER 2024-01-22 09:26 | Outpatient (REF) | payer MEDICARE, SELFPAY ==
--- NOTE | ~2024-01-22 | US_ITS ---
EXAMINATION: US EXTRACRANIAL CAROTID DUPLEX, BILATERAL CLINICAL INFORMATION: Occlusion and stenosis of the carotid arteries COMPARISON: Carotid duplex on 10/17/2022 TECHNIQUE: Real-time ultrasound and Doppler techniques (integrating B-mode 2-D vascular images, Doppler spectral analysis and color-flow Doppler imaging) were utilized to interrogate the extracranial carotid arteries, the vertebral arteries and proximal subclavian arteries bilaterally. The degree of stenosis is determined by criteria similar to NASCET. FINDINGS: Right Side: 1. There is moderate atherosclerotic plaque seen in the bifurcation/proximal ICA region. 2. The common carotid artery PSV proximally is 60 cm/s and distally 71 cm/s. 3. The proximal internal carotid artery velocities are 188 cm/s systolic and 65 cm/s diastolic. 4. The proximal external carotid artery PSV is 187 cm/s. 5. The vertebral artery shows antegrade flow. 6. The subclavian artery waveforms are normal. Left Side: 1. There is moderate atherosclerotic plaque seen in the bifurcation/proximal ICA region. 2. The common carotid artery PSV proximally is 45 cm/s and distally 57 cm/s. 3. The proximal internal carotid artery velocities are 291 cm/s systolic and 46 cm/s diastolic. 4. The proximal external carotid artery PSV is 173 cm/s. 5. The vertebral artery shows antegrade flow. 6. The subclavian artery waveforms are normal. US/US carotid duplex BI IMPRESSION: 1. RIGHT: Moderate, hemodynamically significant stenosis of the proximal right internal carotid artery corresponding to a 50-79% stenosis by velocity criteria. 2. LEFT: Moderate, hemodynamically significant stenosis of the proximal left internal carotid artery corresponding to a 50-79% stenosis by velocity criteria. 3. There is no change in the category severity of disease when compared to the previous study dated 10/17/2022.
--- NOTE | ~2024-01-22 | US_ITS ---
EXAMINATION: NONINVASIVE ASSESSMENT OF THE ARTERIES OF BOTH LOWER EXTREMITIES CLINICAL INFORMATION: Peripheral vascular disease. COMPARISON: None. TECHNIQUE: Multisegmental pulse volume recordings, pressure measurements and ankle brachial indices were obtained of the lower extremity arterial system bilaterally. This study was performed at rest only. FINDINGS: a) AT REST: 1. The ankle-brachial indices are: Right 0.68 and left 0.57. >0.97-1.25 = normal - no significant arterial disease. 0.75-0.96 = mild peripheral arterial disease. 0.5-0.74 = moderate peripheral arterial disease. <0.50 = severe peripheral arterial disease. 2. Segmental pressures: Abnormal. 3. PVR waveforms: Abnormal. . US/US [place] complete IMPRESSION: Moderate bilateral peripheral arterial disease.
== END 2024-01-22 09:27 | disposition home or self-care (01) ==
LOC: HO.US 09:26
PROVIDERS: PCP Internal Medicine; Visit Provider Surgery Vascular Surgery
DX: I65.23 Occlusion and stenosis of bilateral carotid arteries (principal); I73.9 Peripheral vascular disease, unspecified
CPT/HCPCS: 93880; 93923

== ENCOUNTER → 2024-06-06 14:56 | Outpatient (REF) | payer MEDICARE, SELFPAY ==
--- NOTE | 2024-06-06 14:59 | CA_ITS ---
Transthoracic Echocardiogram Patient (Last, First, Middle): Ag Andrade D Gender: Male Date of : 1945 Age: 79 Procedure Date: 06/06/2024 Procedure Type: Transthoracic Echocardiogram Location: OP Height: 177.8 cm Weight: 63.5 kg BSA: 1.79 m2 Heart Rate: bpm BP: 170 / 90 mmHg Distribution Collection Operator: TO Referring MD: Haim Wilson MD Symptoms: I35.0 - Nonrheumatic aortic (valve) stenosis Study Quality: Fair ECG Rhythm: Sinus Conclusions: - The left ventricular systolic function is hyperdynamic. The visually estimated ejection fraction is >70%. - There is moderate to severe aortic valve stenosis. Findings Procedure Information The study quality is limited by patients body habitus. Left Ventricle Normal left ventricular cavity size. There is mildly increased left ventricular wall thickness. The left ventricular systolic function is hyperdynamic. The visually estimated ejection fraction is >70%. There is no evidence of regional wall motion abnormalities. Evidence suggests grade I (mild) diastolic dysfunction. There is moderate septal asymmetric hypertrophy. Right Ventricle Normal right ventricular cavity size and systolic function. Atria The left atrium is mildly dilated. The right atrium is normal in size. Aortic Valve There is moderate calcification of the aortic valve. There is moderate to severe aortic valve stenosis. The peak aortic velocity is 3.89 m/s with a calculated peak gradient of 61 mmHg. The mean gradient is 39 mmHg. The aortic valve area is 0.87 cm2. There is mild aortic valve regurgitation. Dimensionless index 0.25. Stroke volume index 36ml/m2. Mitral Valve There is mild mitral annular calcification. There is no mitral valve regurgitation. There is no mitral valve stenosis. Pulmonic Valve The pulmonic valve is likely normal. Tricuspid Valve There is trace tricuspid valve regurgitation. There is no evidence of pulmonary hypertension. Great Vessels The asc aorta is normal in size. Venous The inferior vena cava is normal in size and collapses greater than 50% with inspiration. Pericardium/Pleural There are no definitive echocardiographic findings of tamponade physiology. Small to moderate pericardial effusion over the right ventricle. Prior Study Comparison Changes noted compared to prior study dated: 10/26/2022. Progression of aortic valve stenosis. Pericardial effusion is similar. Measurements 2D Linear Measurements IVSd: 1.44 0.6-0.9/0.6-1.0 cm LVIDd: 4.03 3.9-5.3/4.2-5.9 cm LVIDd Index: 2.25 2.4-3.2/2.2-3.1 cm/m2 LVIDs: 2.65 2.0-3.6 cm LVPWd: 1.03 0.7-1.1 cm LA Diam: 3.30 2.7-3.8/3.0-4.0 cm LAIDs Index: 1.84 1.5-2.3 cm/m2 LV Mass: 217.54 67-162/88-224 g LV Mass Index: 121.53 43-95/49-115 g/m2 LVOT Diam: 2.20 3.0+(-)1.3 cm Mitral Valve MV Pk E: 0.32 MV PK A: 0.78 MV Decel Time: 183.00 E/A: 0.40 E'Lateral: 2.94 E'Medial: 2.72 E/E' Med: 11.60 E/E' Lat: 10.70 PHT: 54.00 MVA PHT: 4.[address]: 1.72 Aortic Valve AoV Pk Keith: 3.89 AoV Mn Keith: 3.00 AoV VTI: 0.74 AoV Pk Grad: 61.00 Aov Mn Grad: 39.00 WANDER Cont.VTI: 0.87 LVOT LVOT Pk Keith: 0.96 LVOT Mn Keith: 0.64 LVOT VTI: 0.17 LVOT Pk Grad: 4.00 LVOT Mn Grad: 2.00 LVOT Diam: 2.20 LVOT Area: 3.80 Diastolic Function MV Pk E: 0.32 MV Pk A: 0.78 E/A: 0.40 E'Medial: 2.72 E/E' Med: 11.60 E' Laterial: 2.94 E/E' Lat: 10.70 Right Ventricle TAPSE (mm): 25.60 TVS' Keith: 12.20 Tricuspid Valve RA Press: 3.00 Great Vessels Aorta Sinus of Valsalva: 3.88 2.0-3.5 cm Ao Asc: 3.60 2.1-3.4 cm Updated in Other Vendor System with Status of Final Haim Wilson MD electronically signed on 06/08/2024 10:49:39 AM with status of Final
== END ==
LOC: HO.CARD 14:56
PROVIDERS: PCP Internal Medicine; Visit Provider Internal Medicine
DX: I35.0 Nonrheumatic aortic (valve) stenosis (principal)
CPT/HCPCS: 93306

== ENCOUNTER → 2024-06-06 14:59 | Outpatient (BNV) | payer MEDICARE, SELFPAY | PROVIDERS: PCP Internal Medicine; Visit Provider Internal Medicine | DX: I35.2 Nonrheumatic aortic (valve) stenosis with insufficiency (principal); I42.2 Other hypertrophic cardiomyopathy | CPT/HCPCS: 93306 ==

== ENCOUNTER 2024-06-10 13:28 | Outpatient (AMB) | payer MEDICARE, SELFPAY ==
[2024-06-10 13:30] VITALS: BP 146/82; PULSE 100; O2SAT 93; BMI 18.9
--- NOTE | 2024-06-10 13:30 | MHC.PC.OV ---
Vital Signs 06/10/24 13:30 Height 5 ft 9 in Weight 128 lb BMI 18.9 BP 146/82 H Blood Pressure Location Lt brachial Position Sitting Pulse 100 Pulse Source Pulse Oximeter Pulse Oximetry (%) 93 Oxygen Delivery Method Room Air Intake Visit Reasons: Medicine Review Intake Note: Pt reports feeling extremely anxious today. Survey Methodologist Required: No Accompanied by: Spouse Allergies penicillin G [Penicillin G] Allergy (Severe, Verified 06/10/24 13:33) ANAPHYLAXIS penicillamine Allergy (Unknown, Verified 06/10/24 13:33) anaphylaxis penicillin V Allergy (Unknown, Verified 06/10/24 13:33) anphylaxis Tobacco use date assessed: 01/11/24 Fall risk assessment: No Falls in past year Last assessed Fall Risk: 06/10/24 Dental Screening Dental Screen Date: 01/11/24 HPI Medicine Review HPI Details 79-year-old male presents to the office to discuss his chronic medical conditions. He is accompanied by his . Patient is reporting that his anxiety symptoms are increasing. He gets panic attacks and his appetite has reduced. He would like to increase the benzodiazepine dosage. In the past he had never agreed to see a mental health provider or take medications that can be safely used long-term. Now he is willing to see a mental health provider. He has also been noncompliant with the thyroid medication. [facility], [facility] Medical History (Updated 09/16/22 @ 08:04 by SHELTON Guerrero) Peripheral vascular disease Onychomycosis Atherosclerotic cardiovascular disease Ex-smoker Essential hypertension Abdominal aortic aneurysm without rupture Ascending aorta dilatation Non-rheumatic aortic stenosis Erectile dysfunction Anxiety and depression Benzodiazepine dependence Hip osteoarthritis Hypothyroid COPD (chronic obstructive pulmonary disease) Thoracic aortic aneurysm Hypercholesteremia Insomnia GERD (gastroesophageal reflux disease) BPH loc w/o ur obs/LUTS Surgical History History of hernia surgery History of hip replacement Family History Mother No problems noted. Father No problems noted. Social History Housing: House Alcohol intake: never Patient Tobacco Use Status: Former Tobacco user e-Cigarette/Vaping Use: Never Used Second Hand Smoke Exposure: No service: No Current occupational status: retired Cognitive needs: Yes (cane) Hearing needs: Yes Vision needs: Yes (glasses) Questionnaire PHQ-9 Over the last 2 weeks, how often have you been bothered by any of the following problems? 1. Little interest or pleasure in doing things: not at all 2. Feeling down, depressed, or hopeless: several days 3. Trouble falling or staying asleep, or sleeping too much: not at all 4. Feeling tired or having little energy: not at all 5. Poor appetite or overeating: not at all 6. Feeling bad about yourself - or that you are a failure or have let yourself or your family down: not at all 7. Trouble concentrating on things, such as reading the newspaper or watching television: not at all 8. Moving or speaking so slowly that other people could have noticed. Or the opposite - being so fidgety or restless that you have been moving around a lot more than usual: not at all 9. Thoughts that you would be better off or of hurting yourself in some way: not at all Total score: 1 Depression Screening Interpretation: Negative Depression Screening Done: Yes 75591 - PHQ-9 Billing: Yes Source: Developed by Drs. Ted Del Rosario, Jeni Le, Tate Zeng and colleagues, with an educational cristopher from [employer]. Thrive Questionnaire Date Thrive assessed: 01/11/24 Are you currently unemployed and looking for a job?: Yes AUDIT C Alcohol Use Questionnaire (AUDIT-C) 1. How often do you have a drink containing alcohol?: Never 3. How often do you have six or more drinks on one occasion?: Never Total Score: 0 Score Reviewed/Action Taken: No KAITLIN-7 AMB Questionnaire KAITLIN-7 Date KAITLIN - 7 assessed: 01/11/24 Feeling nervous, anxious, or on edge: 0 = Not at all Not being able to stop or control worryin = Several days Worrying too much about different things: 0 = Not at all Trouble relaxin = Not at all Being so restless that it is hard to sit still: 0 = Not at all Becoming easily annoyed or irritable: 0 = Not at all Feeling afraid as if something awful might happen: 0 = Not at all Total KAITLIN-7 score (0-4 normal; 5-9 mild; 10-14 moderate; 15-21 severe): 1 Source: Developed by Drs. Ted Del Rosario, Jeni Le, Tate Zeng and colleagues, with an educational cristopher from [employer]. KAITLIN-7 Assessment Billing KAITLIN-7 Assessment Tool: KAITLIN-7 Assessment [id number] Physical exam (Primary Care) Vital Signs: Last Vital Signs Pulse 100 06/10/24 13:30 BP 146/82 H 06/10/24 13:30 Pulse Ox 93 06/10/24 13:30 Oxygen Delivery Method Room Air 06/10/24 13:30 Care Plan Goal for BP management: Blood pressure is in range. BMI result Body Mass Index 18.9 Tobacco/Smoking Status: Tobacco use Status Tobacco use date assessed 01/11/24 06/10/24 13:37 Patient Tobacco Use Status Former Tobacco user 06/10/24 13:37 e-Cigarette/Vaping Use Never Used 06/10/24 13:37 PHQ-9: PHQ-9 Score PHQ-9: Total score 1 06/10/24 13:37 Depression Screening Interpretation: Negative Thrive Assessment: Date of Thrive Assessment Date Thrive assessed 01/11/24 06/10/24 13:37 Const General: cooperative and healthy appearing Nutritional Appearance: well nourished Orientation/consciousness: patient oriented x3 Limitations: no limitations HENMT Head: Yes normal to inspection Eyes General: appearance normal, both eyes and all related structures Neck Neck: Yes normal visual inspection Chest Chest palpation & inspection: normal palpation of entire chest wall Resp Effort & Inspection: normal respiratory effort Cardio Other: Systolic murmur well heard over the aortic area. Neuro General: patient oriented x3 Assessment and Plan Assessment & Plan (1) Peripheral vascular disease: Code(s): I73.9 - Peripheral vascular disease, unspecified Plan: Condition is stable. (2) Abdominal aortic aneurysm without rupture: Code(s): I71.4 - Abdominal aortic aneurysm, without rupture Plan: Condition is stable. (3) Ascending aorta dilatation: Code(s): I77.810 - Thoracic aortic ectasia Plan: Condition is stable. (4) Essential hypertension: Code(s): I10 - Essential (primary) hypertension Plan: Blood pressure is in range. Continue medications at same dosage. (5) Hypothyroid: Code(s): E03.9 - Hypothyroidism, unspecified Plan: TSH is borderline. Encourage patient to be compliant. Repeat TSH will be drawn. (6) COPD (chronic obstructive pulmonary disease): Code(s): J44.9 - Chronic obstructive pulmonary disease, unspecified Plan: Breathing is at baseline. Continue medications and inhalers at the same dosage. (7) Hypercholesteremia: Code(s): E78.00 - Pure hypercholesterolemia, unspecified Plan: Blood work has been ordered. Continue statins. (8) BPH loc w/o ur obs/LUTS: Code(s): N40.0 - Benign prostatic hyperplasia without lower urinary tract symptoms Plan: Medications have been refilled. (9) Generalized anxiety disorder: Code(s): F41.1 - Generalized anxiety disorder Plan: Patient takes lorazepam at night. Finally he has agreed to see a mental health provider. This would help to understand if the lorazepam dosage can be increased. Orders: Orders Liver Panel Today E03.9 - Hypothyroidism, unspecified, I71.4 - Abdominal aortic aneurysm, without rupture Thyroid Stimulating Hormone Today E03.9 - Hypothyroidism, unspecified, I71.4 - Abdominal aortic aneurysm, without rupture Complete Blood Count no Diff Today E03.9 - Hypothyroidism, unspecified, I71.4 - Abdominal aortic aneurysm, without rupture Basic Metabolic Panel Today E03.9 - Hypothyroidism, unspecified, I71.4 - Abdominal aortic aneurysm, without rupture Lipid Panel Today E03.9 - Hypothyroidism, unspecified, I71.4 - Abdominal aortic aneurysm, without rupture Referrals Psychiatry Outpatient Consultation Service F41.1 - Generalized anxiety disorder Coding Level of Care Code Est Pt Level 4 (24767) Complex EM visit Add On G2211 Diagnoses Peripheral vascular disease I73.9 Abdominal aortic aneurysm without rupture I71.4 Ascending aorta dilatation I77.810 Essential hypertension I10 Hypothyroid E03.9 COPD (chronic obstructive pulmonary disease) J44.9 Hypercholesteremia E78.00 BPH loc w/o ur obs/LUTS N40.0 Generalized anxiety disorder F41.1 Additional Codes KAITLIN-7 Assessment Billing - KAITLIN-7 Assessment Tool: KAITLIN-7 Assessment [id number] ([id number])
== END 2024-06-10 14:19 | disposition home or self-care (01) ==
PROVIDERS: PCP Internal Medicine; Visit Provider Internal Medicine
DX: J44.9 Chronic obstructive pulmonary disease, unspecified (principal); I73.9 Peripheral vascular disease, unspecified; I77.810 Thoracic aortic ectasia; I10 Essential (primary) hypertension; E03.9 Hypothyroidism, unspecified; E78.00 Pure hypercholesterolemia, unspecified; N40.0 Benign prostatic hyperplasia without lower urinary tract symptoms; F41.1 Generalized anxiety disorder

== ENCOUNTER → 2024-06-10 13:28 | Outpatient (BNVA) | payer MEDICARE, SELFPAY | PROVIDERS: PCP Internal Medicine; Visit Provider Internal Medicine | DX: I35.0 Nonrheumatic aortic (valve) stenosis (principal); I25.10 Atherosclerotic heart disease of native coronary artery without angina pectoris; I10 Essential (primary) hypertension; I73.9 Peripheral vascular disease, unspecified; I77.810 Thoracic aortic ectasia; E03.9 Hypothyroidism, unspecified; J44.9 Chronic obstructive pulmonary disease, unspecified; E78.00 Pure hypercholesterolemia, unspecified; N40.0 Benign prostatic hyperplasia without lower urinary tract symptoms; F41.1 Generalized anxiety disorder | CPT/HCPCS: 93005; 96127; 99212 ==

== ENCOUNTER 2024-06-10 14:41 | Outpatient (AMB) | payer MEDICARE, SELFPAY ==
--- NOTE | 2024-06-10 14:44 | A.OFFVIS_ITS ---
Vital Signs 06/10/24 14:45 Height 5 ft 9 in Weight 125 lb 10.616 oz BMI 18.6 BP 120/60 Blood Pressure Location Lt brachial Position Sitting Pulse 94 Pulse Source Monitor Intake Visit Reasons: 1yr f/up s/p Echo Allergies penicillin G [Penicillin G] Allergy (Severe, Verified 06/10/24 13:33) ANAPHYLAXIS penicillamine Allergy (Unknown, Verified 06/10/24 13:33) anaphylaxis penicillin V Allergy (Unknown, Verified 06/10/24 13:33) anphylaxis Medication List - Last Reconciled 06/10/24 by Haim Wilson MD albuterol sulfate 90 mcg/actuation 2 puffs PO Q6H PRN aspirin 81 mg PO DAILY atorvastatin (Lipitor) 5 mg (1/2 x 10 mg) PO BEDTIME 30 days budesonide-formoterol 160-4.5 mcg/actuation (Symbicort) 2 puffs PO BID levothyroxine (Synthroid) 25 mcg PO DAILY lisinopril 40 mg (2 x 20 mg) PO DAILY 90 days lorazepam 0.5 mg PO BEDTIME PRN 30 days metoprolol succinate ER 50 mg PO DAILY omeprazole 20 mg PO DAILY tamsulosin 0.8 mg (2 x 0.4 mg) PO DAILY zolpidem 5 mg PO BEDTIME HPI Comments Details: Ag returns for follow-up regarding coronary artery disease and aortic stenosis. Overall, he states he is feeling fine. No new complaints. No angina. Shortness of breath is at baseline. He states it does not bother him at all. [facility] Medical History (Updated 09/16/22 @ 08:04 by SHELTON Guerrero) Peripheral vascular disease Onychomycosis Atherosclerotic cardiovascular disease Ex-smoker Essential hypertension Abdominal aortic aneurysm without rupture Ascending aorta dilatation Non-rheumatic aortic stenosis Erectile dysfunction Anxiety and depression Benzodiazepine dependence Hip osteoarthritis Hypothyroid COPD (chronic obstructive pulmonary disease) Thoracic aortic aneurysm Hypercholesteremia Insomnia GERD (gastroesophageal reflux disease) BPH loc w/o ur obs/LUTS Surgical History History of hernia surgery History of hip replacement Family History Mother No problems noted. Father No problems noted. Social History Housing: House Alcohol intake: never Patient Tobacco Use Status: Former Tobacco user e-Cigarette/Vaping Use: Never Used Second Hand Smoke Exposure: No service: No Current occupational status: retired Cognitive needs: Yes (cane) Hearing needs: Yes Vision needs: Yes (glasses) Review of Systems Const Denies weakness ENT Denies dizziness Card Denies chest pain, Denies chest pain with activity, Denies syncope, Denies rapid heart rate, Denies pedal edema, Denies edema, Denies leg edema, Denies lightheadedness, Denies palpitations, Denies dyspnea, Denies dyspnea on exertion and Denies orthopnea Resp Denies cough, Denies dyspnea and Denies dyspnea on exertion GI Denies hematochezia and Denies change in stool character Musc Denies abnormal gait, Denies muscle cramps, Denies muscle weakness, Denies numbness, Denies radiating pain into limb and Denies tingling Neuro Denies abnormal gait, Denies dizziness, Denies syncope, Denies numbness, Denies tingling and Denies weakness Endo Denies palpitations Physical Exam Vital Signs: Last Vital Signs Pulse 94 06/10/24 14:45 BP 120/60 06/10/24 14:45 BMI result Body Mass Index 18.6 Const General: comfortable and no acute distress Orientation/consciousness: patient oriented x3 HEENT Other: Unremarkable Head: Yes normal to inspection Neck Neck: Yes normal visual inspection Chest Chest palpation & inspection: normal inspection of the chest Resp Auscultation: clear to auscultation bilaterally Cardio Palpation: normal PMI Heart sounds: S1 normal heart sound present, S2 normal heart sound present, no gallops, Murmur heart sound present systolic II/ and at the right sternal border and no rubs GI Palpation (GI): Soft to palpation Back/Spine/Pelvis Other: unremarkable Skin General skin exam: no rashes or lesions noted Neuro General: patient oriented x3 Extrem General: Yes normal to inspection Psych Mental Status: mental status grossly normal Office Procedures EKG Details: EKG with underlying sinus rhythm at 94/Min; right bundle-branch block and left anterior fascicular block; cannot exclude old anteroseptal infarct. [id number], Complete Assessment & Plan Assessment & Plan (1) Non-rheumatic aortic stenosis: Code(s): I35.0 - Nonrheumatic aortic (valve) stenosis Category: Medical Plan: In the most recent echocardiogram, suspected moderate to severe aortic stenosis. Patient himself really has no symptoms. Pathophysiology, natural course, treatment options discussed. Probable TAVR candidate in the future. (2) Atherosclerotic cardiovascular disease: Code(s): I25.10 - Atherosclerotic heart disease of [place] coronary artery without angina pectoris Category: Medical Plan: Cardiac catheterization in the past had shown a chronically occluded RCA with collaterals from left. Mild to moderate disease in the LAD and circumflex. He was on statins in the past but had various side effects. Most recently, seems to be on a small dose. Lipids are well controlled. (3) Abdominal aortic aneurysm without rupture: Code(s): I71.4 - Abdominal aortic aneurysm, without rupture Category: Medical Plan: Status post endovascular repair. Follow-up [facility] vascular surgery. (4) Essential hypertension: Code(s): I10 - Essential (primary) hypertension Category: Medical Plan: Stable. No changes. Orders: Orders CA echo transthoracic complete 6 Months I35.0 - Nonrheumatic aortic (valve) stenosis Coding Level of Care Code Est Pt Level 4 (38448) Diagnoses Non-rheumatic aortic stenosis I35.0 Atherosclerotic cardiovascular disease I25.10 Abdominal aortic aneurysm without rupture I71.4 Essential hypertension I10 CPT Codes EKG - CPT: 92901-[id number], Complete ([id number])
[2024-06-10 14:45] VITALS: BP 120/60; PULSE 94; BMI 18.6
== END 2024-06-10 15:48 | disposition home or self-care (01) ==
PROVIDERS: PCP Internal Medicine; Visit Provider Internal Medicine
DX: I35.0 Nonrheumatic aortic (valve) stenosis (principal); I25.10 Atherosclerotic heart disease of native coronary artery without angina pectoris; I71.40 Abdominal aortic aneurysm, without rupture, unspecified; I10 Essential (primary) hypertension
CPT/HCPCS: 93010; 99214

== ENCOUNTER 2024-07-23 10:04 | Outpatient (AMB) | payer MEDICARE, SELFPAY ==
--- NOTE | 2024-07-23 11:19 | MHC.OFFVISPS ---
Intake Intake Visit Reasons: consultation Marketing Rotation Associate Required: No Allergies penicillin G [Penicillin G] Allergy (Severe, Verified 06/10/24 13:33) ANAPHYLAXIS penicillamine Allergy (Unknown, Verified 06/10/24 13:33) anaphylaxis penicillin V Allergy (Unknown, Verified 06/10/24 13:33) anphylaxis Medication List - Last Reconciled 07/23/24 by Fatou Thompson, HARVINDER albuterol sulfate 90 mcg/actuation 2 puffs PO Q6H PRN aspirin 81 mg PO DAILY atorvastatin (Lipitor) 5 mg (1/2 x 10 mg) PO BEDTIME 30 days budesonide-formoterol 160-4.5 mcg/actuation (Symbicort) 2 puffs PO BID levothyroxine (Synthroid) 25 mcg PO DAILY lisinopril 40 mg (2 x 20 mg) PO DAILY 90 days lorazepam 0.5 mg PO BID PRN 30 days metoprolol succinate ER 50 mg PO DAILY mirtazapine 3.75 mg (1/2 x 7.5 mg) PO BEDTIME omeprazole 20 mg PO DAILY tamsulosin 0.8 mg (2 x 0.4 mg) PO DAILY zolpidem 5 mg PO BEDTIME HPI- Psychiatric Chief Complaint: consultation HPI Narrative: Pt referred by PCP for evaluation of medication regimen and treatment of persistent anxiety; pt reports that he was treated with valium since adolescence for severe anxiety. He was seen by Dr Pollack a neurologist years ago and switch to lorazepam 0.5mg TID. His provider retired and he could not find a psychiatrist. He states over the years he was tried on many different medications which didn't help and sometimes caused side effects; he says some medications caused SI and others made him very tired. He can not recall the list of medications he tried as he said it was years ago. He reports he functioned very well on lorazepam 0.5mg tid. he was active, worked until his 70s when he retired, he played golf and went fishing; since being on a lower dose he feels his quality of life has suffered. He feels agoraphobic, depressed with no interest in activities, avoids going out and isolates. He has panic attacks several times a week. he is not eating well and has lost approximately 35 pounds in 3 years. he feels less energy and less strength. His is with him during appointment and agrees that his functioning and quality of life is worse without the medication ativan 0,.5mg tid. He denies alcohol or drug use. no tobacco use. He denies falls or unsteady gait; he does use a cane. We discussed the reasons benzodiazepines are a concern in elders. We completed Thierry Conitive Assessment. he scored 27 out 30. He has the most difficulty with recall of words 5-10 minutes later with no cueing he got 2/5. He was able to count backwards from 100 by 7s. he was able to name 3 animals correctly. He was able to cite 15 words beginning with F in 1 minute easily. He showed no significant cognitive deficits. Past Psychiatric History: outpatient treatment for anxiety and panic since adolescence; no IPLOC Subjective Subjective Subjective Medication Compliance: Yes Side effects from medications: No Review of Systems Medical Review of Systems: unchanged Mental Status Exam Mental Status Exam Patient Appearance: Well Grooomed and Appropriate Patient Orientation: Person, Place, Time and Situation Level of Consciousness: Awake and Appropriate Patient Behavior: Appropriate, Cooperative and Anxious Mood Description: Anxious Affect Description: Anxious Patient Cognition Impaired: No Ability to Follow Directions: Good Speech Pattern: Clear, Coherent and Animated Memory Description: Intact Hallucinations: None Delusions: Not Present Thought Process: Intact and Goal Oriented Thought Content: positive for Intact and positive for Goal Oriented Judgement: Good Assessment and Plan Assessment & Plan (1) Generalized anxiety disorder: Status: Acute Code(s): F41.1 - Generalized anxiety disorder (2) Panic disorder: Status: Acute Code(s): F41.0 - Panic disorder [episodic paroxysmal anxiety] Plan recommend start mirtazepine 3.75 mg at bedtime recommend increase lorazepam to 0.5mg 1/2 tab QID prn may continue to take ambien 5 mg one hour after remeron if still awake discussed nwith patient and his need to say adequately hydrated and no high risk behaviors such as climbing ladder or using power tools while on lorazepam. discussed risks of falls; discussed also need for adequate nutrition for strength and cognitive function; discussed the correlation of benzodiazepines with dementia and risk of memory problems with lorazepam or any benzodiazepine although anticholinergic medications such ad paxil and benadryl are higher risk. Discussed with patient that as we age we often need lower doses of medication especially benzodiazepines as the RADHA-aminergic system which benzodiazepines work on becomes more sensitive with age and may change the response to these medications. despite the risks it is meidcally reasonable to prescribe a low dose of benzodiazepine to treat his anxiety and panic which he believes and likely correctly so improves his quality of life. He and in agreement with medication plan above and will return in 4-6 weeks to follow up before going back to PCP if PCP in agreement Medications: New mirtazapine 3.75 mg (1/2 x 7.5 mg) PO BEDTIME 15 tabs 1RF Changed From lorazepam 0.5 mg PO BEDTIME 30 days PRN 30 tabs 0RF anxiety To lorazepam 0.5 mg PO BID PRN 60 tabs 0RF anxiety 30 days Orders: Orders Vitamin B12 and Folate Today R20.0 - Anesthesia of skin, R20.2 - Paresthesia of skin Counseling and coordination of Care Pt. Self Management counseling: Exercise, Maintenance-social rhythm, Mod caffeine/ETOH intake, Nutrition education and improvement, Sleep hygiene, Behavior activation, General coping skills and Problem solving Medication management counseling: Effectiveness, Side effects, Dosing range, Duration, Drug interaction and Adherence Details-Med Mgmt counseling: risk vs benefits of meds rx Diagnosis and Prognosis Counseling: Accuracy of diagnosis, Prognosis over time, Impact of diagnosis on life functions, Impact of family relationship, Problematic behaviors secondary to diagnosis and Adequacy of current interventions Details: I spent 90 minutes reviewing the record, seeing the patient and documenting in the medical record. Counseling provided to the patient/caregiver as outlined below. Addressed patient/caregiver concerns regarding current medication regime including effective adherence. Addressed patient/caregiver concerns regarding diagnosis and prognosis including accuracy of diagnosis, prognosis over time, impact of diagnosis. Addressed patient/caregiver concerns regarding impact of recent stressors. [facility] Medical History (Updated 07/23/24 @ 14:42 by Fatou Thompson APRN) Peripheral vascular disease Onychomycosis Atherosclerotic cardiovascular disease Ex-smoker Essential hypertension Abdominal aortic aneurysm without rupture Ascending aorta dilatation Non-rheumatic aortic stenosis Erectile dysfunction Anxiety and depression Benzodiazepine dependence Hip osteoarthritis Hypothyroid COPD (chronic obstructive pulmonary disease) Thoracic aortic aneurysm Hypercholesteremia Insomnia GERD (gastroesophageal reflux disease) BPH loc w/o ur obs/LUTS Surgical History History of hernia surgery History of hip replacement Family History Mother No problems noted. Father No problems noted. Social History Housing: House Alcohol intake: never Patient Tobacco Use Status: Former Tobacco user e-Cigarette/Vaping Use: Never Used Second Hand Smoke Exposure: No service: No Current occupational status: retired Cognitive needs: Yes (cane) Hearing needs: Yes Vision needs: Yes (glasses) Social History: second marriage 47 yrs. worked for [employer]. Substance History: none Trauma History: pt denies Coding Level of Care Code Psych Diag Eval w/Med (20608) Diagnoses Generalized anxiety disorder F41.1 Panic disorder F41.0
== END 2024-07-23 12:25 | disposition home or self-care (01) ==
LOC: HO.HOP 10:04
PROVIDERS: PCP Internal Medicine; Visit Provider Clinical Nurse Specialist Psychiatric/Mental Health
DX: F41.1 Generalized anxiety disorder (principal); F41.0 Panic disorder [episodic paroxysmal anxiety]
CPT/HCPCS: 90792

== ENCOUNTER → 2024-07-23 10:04 | Outpatient (BNVA) | payer MEDICARE, SELFPAY | PROVIDERS: PCP Internal Medicine; Visit Provider Clinical Nurse Specialist Psychiatric/Mental Health | DX: F41.1 Generalized anxiety disorder (principal); F41.0 Panic disorder [episodic paroxysmal anxiety] | CPT/HCPCS: 90792 ==

== ENCOUNTER 2024-09-24 14:32 | Outpatient (AMB) | payer MEDICARE, SELFPAY ==
--- NOTE | 2024-09-24 14:39 | A.OFFPSYCH_ITS ---
Intake Intake Visit Reasons: consult follow up Credit Review Officer Required: No Allergies penicillin G [Penicillin G] Allergy (Severe, Verified 06/10/24 13:33) ANAPHYLAXIS penicillamine Allergy (Unknown, Verified 06/10/24 13:33) anaphylaxis penicillin V Allergy (Unknown, Verified 06/10/24 13:33) anphylaxis Medication List - Last Reconciled 09/24/24 by Fatou Thompson, HARVINDER albuterol sulfate 90 mcg/actuation 2 puffs PO Q6H PRN aspirin 81 mg PO DAILY atorvastatin (Lipitor) 5 mg (1/2 x 10 mg) PO BEDTIME 30 days budesonide-formoterol 160-4.5 mcg/actuation (Symbicort) 2 puffs PO BID levothyroxine (Synthroid) 25 mcg PO DAILY lisinopril 40 mg (2 x 20 mg) PO DAILY 90 days lorazepam 0.5 mg PO BID PRN 30 days metoprolol succinate ER 50 mg PO DAILY omeprazole 20 mg PO DAILY tamsulosin 0.8 mg (2 x 0.4 mg) PO DAILY zolpidem 5 mg PO BEDTIME HPI- Psychiatric Chief Complaint: consult follow up HPI Narrative: pt reports he is much improved; He si much less anxious; he is not depressed' he worries less, He is more active. He is taking more walks outdoors when safe to do so. He visits with a neighbor. PHQ9 =1 and GAD7 = 7 He reports no side effects from ativan. He sometimes only takes a half and deosn't always need a second dose; no dizziness, no sedation, balance is good; He is not taking remeron at night but sleeping well with ambien 5mg. He reports better appetite. he says eh needs cataract surgery. He verbalized an understanding that he needs to stay hydrated and using the least effective amount of ativan will help it to continue to alleviate anxiety rather than it losing its benefit from overuse Past Psychiatric History: outpatient treatment for anxiety and panic since adolescence; no IPLOC Subjective Subjective Subjective Medication Compliance: Yes Side effects from medications: No Review of Systems Medical Review of Systems: unchanged Mental Status Exam Mental Status Exam Patient Appearance: Well Grooomed and Appropriate Patient Orientation: Person, Place, Time and Situation Level of Consciousness: Awake, Appropriate and Alert Patient Behavior: Appropriate, Cooperative and Good Eye Contact Mood Description: Calm, Happy and Cheerful Affect Description: Calm, Happy and Cheerful Patient Cognition Impaired: No Ability to Follow Directions: Good Speech Pattern: Clear and Appropriate Memory Description: Intact Hallucinations: None Delusions: Not Present Thought Process: Intact Thought Content: positive for Intact Judgement: Good Assessment and Plan Assessment & Plan (1) Panic disorder: Status: Acute Code(s): F41.0 - Panic disorder [episodic paroxysmal anxiety] (2) Generalized anxiety disorder: Status: Acute Code(s): F41.1 - Generalized anxiety disorder Plan continue ativan 0.5mg bid prn panic continue ambien 5 mg at bedtime d/c remeron pt to follow up with PCP Medications: Refilled lorazepam 0.5 mg PO BID 30 days PRN 60 tabs 2RF anxiety Counseling and coordination of Care Pt. Self Management counseling: Maintenance-social rhythm, Mod caffeine/ETOH intake, Nutrition education and improvement and Problem solving Medication management counseling: Effectiveness, Side effects, Dosing range, Duration, Drug interaction and Adherence Diagnosis and Prognosis Counseling: Accuracy of diagnosis, Prognosis over time and Adequacy of current interventions Details: I spent 45 minutes reviewing the record, seeing the patient and documenting in the medical record. Counseling provided to the patient/caregiver as outlined below. Addressed patient/caregiver concerns regarding current medication regime including effective adherence. Addressed patient/caregiver concerns regarding diagnosis and prognosis including accuracy of diagnosis, prognosis over time, impact of diagnosis. Addressed patient/caregiver concerns regarding impact of recent stressors. [facility] Medical History (Updated 07/23/24 @ 14:42 by Fatou Thompson APRN) Peripheral vascular disease Onychomycosis Atherosclerotic cardiovascular disease Ex-smoker Essential hypertension Abdominal aortic aneurysm without rupture Ascending aorta dilatation Non-rheumatic aortic stenosis Erectile dysfunction Anxiety and depression Benzodiazepine dependence Hip osteoarthritis Hypothyroid COPD (chronic obstructive pulmonary disease) Thoracic aortic aneurysm Hypercholesteremia Insomnia GERD (gastroesophageal reflux disease) BPH loc w/o ur obs/LUTS Surgical History History of hernia surgery History of hip replacement Family History Mother No problems noted. Father No problems noted. Social History Housing: House Alcohol intake: never Patient Tobacco Use Status: Former Tobacco user e-Cigarette/Vaping Use: Never Used Second Hand Smoke Exposure: No service: No Current occupational status: retired Cognitive needs: Yes (cane) Hearing needs: Yes Vision needs: Yes (glasses) Social History: second marriage 47 yrs. worked for [employer]. Substance History: none Trauma History: pt denies Coding Level of Care Code Est Pt Level 5 (59157) Diagnoses Panic disorder F41.0 Generalized anxiety disorder F41.1
== END 2024-09-24 15:06 | disposition home or self-care (01) ==
LOC: HO.HOP 14:32
PROVIDERS: PCP Internal Medicine; Visit Provider Clinical Nurse Specialist Psychiatric/Mental Health
DX: F41.0 Panic disorder [episodic paroxysmal anxiety] (principal); F41.1 Generalized anxiety disorder
CPT/HCPCS: 99215

== ENCOUNTER → 2024-09-24 14:32 | Outpatient (BNVA) | payer MEDICARE, SELFPAY | PROVIDERS: PCP Internal Medicine; Visit Provider Clinical Nurse Specialist Psychiatric/Mental Health | DX: F41.0 Panic disorder [episodic paroxysmal anxiety] (principal); F41.1 Generalized anxiety disorder | CPT/HCPCS: 99212 ==

== ENCOUNTER 2024-11-15 16:07 | Outpatient (AMB) | payer MEDICARE, SELFPAY ==
[2024-11-15 16:19] VITALS: BP 140/88; PULSE 84; RESP 20; TEMP 37.2; O2SAT 97; BMI 19.9
--- NOTE | 2024-11-15 16:19 | MHC.PC.OV ---
Vital Signs 11/15/24 16:19 Height 5 ft 9 in Weight 134 lb 7.712 oz BMI 19.9 BP 140/88 H Blood Pressure Location Lt brachial Position Sitting Respiration 20 Pulse 84 Pulse Source Pulse Oximeter Temp 99 F Temp Source Oral Pulse Oximetry (%) 97 Oxygen Delivery Method Room Air Intake Visit Reasons: PRE OP L cataracts 12/02/24 Dario Intake Note: Patient is here for a Pre-op for L eye cataract surgery scheduled with Dr. Bishop on 12/02/2024. Embedded Linux Engineer Required: No Accompanied by: Spouse Allergies penicillin G [Penicillin G] Allergy (Severe, Verified 11/15/24 16:32) ANAPHYLAXIS penicillamine Allergy (Unknown, Verified 11/15/24 16:32) anaphylaxis penicillin V Allergy (Unknown, Verified 11/15/24 16:32) anphylaxis Medication List - Last Reconciled 11/15/24 by Veena Garcia PA-C albuterol sulfate 90 mcg/actuation 2 puffs PO Q6H PRN aspirin 81 mg PO DAILY atorvastatin (Lipitor) 5 mg (1/2 x 10 mg) PO BEDTIME 30 days budesonide-formoterol 160-4.5 mcg/actuation (Symbicort) 2 puffs PO BID lisinopril 40 mg (2 x 20 mg) PO DAILY 90 days lorazepam 0.5 mg PO BID PRN 30 days metoprolol succinate ER 50 mg PO DAILY omeprazole 20 mg PO DAILY tamsulosin 0.8 mg (2 x 0.4 mg) PO DAILY zolpidem 5 mg PO BEDTIME Tobacco use date assessed: 11/15/24 Fall risk assessment: No Falls in past year Last assessed Fall Risk: 11/15/24 Dental Screening Dental Screen Date: 11/15/24 Did you have a dental visit in the last 12 months?: No Did you have a dental problem in the last 6 months where you did not have access to dental care?: No [facility] Medical History (Updated 11/15/24 @ 16:50 by Veena Garcia PA-C) Pre-operative clearance Peripheral vascular disease Onychomycosis Atherosclerotic cardiovascular disease Ex-smoker Essential hypertension Abdominal aortic aneurysm without rupture Ascending aorta dilatation Non-rheumatic aortic stenosis Erectile dysfunction Anxiety and depression Benzodiazepine dependence Hip osteoarthritis Hypothyroid COPD (chronic obstructive pulmonary disease) Thoracic aortic aneurysm Hypercholesteremia Insomnia GERD (gastroesophageal reflux disease) BPH loc w/o ur obs/LUTS Surgical History History of hip replacement History of hernia surgery Family History Mother No problems noted. Father No problems noted. Social History Housing: House Alcohol intake: never Patient Tobacco Use Status: Former Tobacco user e-Cigarette/Vaping Use: Never Used Second Hand Smoke Exposure: No service: No Current occupational status: retired Cognitive needs: Yes (cane) Hearing needs: Yes Vision needs: Yes (glasses) Questionnaire PHQ-9 Over the last 2 weeks, how often have you been bothered by any of the following problems? 1. Little interest or pleasure in doing things: not at all 2. Feeling down, depressed, or hopeless: not at all 3. Trouble falling or staying asleep, or sleeping too much: not at all 4. Feeling tired or having little energy: not at all 5. Poor appetite or overeating: not at all 6. Feeling bad about yourself - or that you are a failure or have let yourself or your family down: not at all 7. Trouble concentrating on things, such as reading the newspaper or watching television: not at all 8. Moving or speaking so slowly that other people could have noticed. Or the opposite - being so fidgety or restless that you have been moving around a lot more than usual: not at all 9. Thoughts that you would be better off or of hurting yourself in some way: not at all Total score: 0 Depression Screening Interpretation: Negative Depression Screening Done: Yes 31426 - PHQ-9 Billing: Yes Source: Developed by Drs. Ted Del Rosario, Jeni Le, Tate Zeng and colleagues, with an educational cristopher from [employer]. Thrive Questionnaire Date Thrive assessed: 01/11/24 I am a: Patient What is your living situation today?: I have a steady place to live Within the past 12 months, did the food you bought not last and you didn't have the money to get more?: Never true Within the past 12 months, did you worry whether your food would run out before you got money to buy more?: Never true Do you have trouble paying for medicines?: No Do you have trouble getting transportation to medical appointments?: No Do you have trouble paying your heating and electricity bill?: No Do you have trouble taking care of your child, family member or friend?: No Do you have trouble with day-to-day activities such as bathing, preparing meals, shopping, managing finances, etc.?: No Are you currently unemployed and looking for a job?: No Are you interested in more education?: No Please select the resources that you would like help with: None Currently or been in a relationship where the following occur: No concerns reported THRIVE Score: 0 AUDIT C Alcohol Use Questionnaire (AUDIT-C) 1. How often do you have a drink containing alcohol?: Never 3. How often do you have six or more drinks on one occasion?: Never Total Score: 0 Score Reviewed/Action Taken: No KAITLIN-7 AMB Questionnaire KAITLIN-7 Date KAITLIN - 7 assessed: 01/11/24 Feeling nervous, anxious, or on edge: 0 = Not at all Not being able to stop or control worryin = Not at all Worrying too much about different things: 0 = Not at all Trouble relaxin = Not at all Being so restless that it is hard to sit still: 0 = Not at all Becoming easily annoyed or irritable: 0 = Not at all Feeling afraid as if something awful might happen: 0 = Not at all Total KAITLIN-7 score (0-4 normal; 5-9 mild; 10-14 moderate; 15-21 severe): 0 Source: Developed by Drs. Ted Del Rosario, Jeni Le, Tate Zeng and colleagues, with an educational cristopher from [employer]. KAITLIN-7 Assessment Billing KAITLIN-7 Assessment Tool: KAITLIN-7 Assessment 79245 Physical exam (Primary Care) Vital Signs: Last Vital Signs Temp 99 F 11/15/24 16:19 Oxygen Delivery Method Room Air 11/15/24 16:19 BMI result Body Mass Index 19.9 Tobacco/Smoking Status: Tobacco use Status Tobacco use date assessed 01/11/24 06/10/24 13:37 Patient Tobacco Use Status Former Tobacco user 06/10/24 13:37 e-Cigarette/Vaping Use Never Used 06/10/24 13:37 Depression Screening Interpretation: Negative Thrive Assessment: Date of Thrive Assessment Date Thrive assessed 01/11/24 06/10/24 13:37 Currently or been in a relationship where the following occur: No concerns reported Coding Level of Care Code Est Pt Level 4 (00205) Complex EM visit Add On G2211 Diagnoses Pre-operative clearance Z01.818 Peripheral vascular disease I73.9 Bilateral carotid artery stenosis I65.23 Atherosclerotic cardiovascular disease I25.10 Abdominal aortic aneurysm without rupture I71.4 Ascending aorta dilatation I77.810 Hypothyroid E03.9 COPD (chronic obstructive pulmonary disease) J44.9 Hypercholesteremia E78.00 Essential (primary) hypertension I10 Generalized anxiety disorder F41.1 BPH loc w/o ur obs/LUTS N40.0 GERD (gastroesophageal reflux disease) K21.9 Non-rheumatic aortic stenosis I35.0 Additional Codes KAITLIN-7 Assessment Billing - KAITLIN-7 Assessment Tool: KAITLIN-7 Assessment 88388 ([id number]) PHQ-9 - 92805 - PHQ-9 Billing: Yes ([id number]) Assessment & Plan Assessment & Plan (1) Pre-operative clearance: Code(s): Z01.818 - Encounter for other preprocedural examination Category: Medical Plan: Patient is scheduled for cataract surgery to left eye with Dr. Ball. He is medically cleared at this time. He is instructed to discontinue his aspirin 3 days prior to preop and 2 days postop. He understands this. Will continue to monitor and have patient follow-up in 3 months. (2) Peripheral vascular disease: Code(s): I73.9 - Peripheral vascular disease, unspecified Category: Medical Plan: Condition is chronic and stable continue to monitor. (3) Bilateral carotid artery stenosis: Code(s): I65.23 - Occlusion and stenosis of bilateral carotid arteries Category: Medical Plan: Condition is chronic and stable continue to monitor. (4) Atherosclerotic cardiovascular disease: Code(s): I25.10 - Atherosclerotic heart disease of kiana coronary artery without angina pectoris Category: Medical Plan: Condition is chronic and stable continue to monitor. (5) Abdominal aortic aneurysm without rupture: Code(s): I71.4 - Abdominal aortic aneurysm, without rupture Category: Medical Plan: Condition is chronic and stable continue to monitor. (6) Ascending aorta dilatation: Code(s): I77.810 - Thoracic aortic ectasia Category: Medical Plan: Condition is chronic and stable continue to monitor. (7) Hypothyroid: Code(s): E03.9 - Hypothyroidism, unspecified Category: Medical Plan: Condition is chronic and stable continue to monitor. (8) COPD (chronic obstructive pulmonary disease): Code(s): J44.9 - Chronic obstructive pulmonary disease, unspecified Category: Medical Plan: Condition is chronic and stable continue to monitor. (9) Hypercholesteremia: Code(s): E78.00 - Pure hypercholesterolemia, unspecified Category: Medical Plan: Condition is chronic and stable continue to monitor. (10) Essential (primary) hypertension: Code(s): I10 - Essential (primary) hypertension Category: Medical Plan: Condition is chronic and stable continue to monitor. (11) Generalized anxiety disorder: Code(s): F41.1 - Generalized anxiety disorder Category: Medical Plan: Condition is chronic and stable continue to monitor. (12) BPH loc w/o ur obs/LUTS: Code(s): N40.0 - Benign prostatic hyperplasia without lower urinary tract symptoms Category: Medical Plan: Condition is chronic and stable continue to monitor. (13) GERD (gastroesophageal reflux disease): Code(s): K21.9 - Gastro-esophageal reflux disease without esophagitis Category: Medical Plan: Condition is chronic and stable continue to monitor. (14) Non-rheumatic aortic stenosis: Code(s): I35.0 - Nonrheumatic aortic (valve) stenosis Category: Medical Plan: Condition is chronic and stable continue to monitor. Plan Plan Patient was informed and verbally consented to the use of an ambient scribe for clinic note documentation during this visit. 1. Atherosclerotic Cardiovascular Disease Maintain regular cardiology surveillance and continue aspirin daily, barring perioperative restrictions, to manage cardiovascular risk. 2. Essential Hypertension Continue metoprolol therapy and educate the patient to routinely monitor blood pressure at home, acknowledging in-office elevation possibly due to white coat syndrome. 3. Gastroesophageal Reflux Disease Gerd Maintain current regimen with omeprazole, assessing symptom control to ensure optimal efficacy. 4. Hypothyroidism Continue existing thyroid hormone replacement therapy, ensuring current treatment efficacy is maintained through regular TSH assessments. 5. Chronic Obstructive Pulmonary Disease Copd Maintain current treatment with albuterol as needed and regular Symbicort usage. Monitor pre and post-surgical respiratory status closely. 6. Cataract, Left Eye Proceed with cataract surgery on December 02, 2024. To mitigate potential bleeding risks, aspirin usage should be discontinued three days before and resumed two days post-surgery, adhering strictly to ophthalmological guidelines. Orders: Orders Hemoglobin A1c Today Z00.00 - Encounter for general adult medical examination without abnormal findings Complete Blood Count Auto Diff Today Z00.00 - Encounter for general adult medical examination without abnormal findings PSA,Total (Free>4and<10) Today Z00.00 - Encounter for general adult medical examination without abnormal findings PTH Intact Intraoperative Today Z00.00 - Encounter for general adult medical examination without abnormal findings TSH reflex Free T4 Today Z00.00 - Encounter for general adult medical examination without abnormal findings Comprehensive Met. Panel Today Z00.00 - Encounter for general adult medical examination without abnormal findings Vitamin D 25-OH Total Today Z00.00 - Encounter for general adult medical examination without abnormal findings Vitamin B12 and Folate Today Z00.00 - Encounter for general adult medical examination without abnormal findings Vitamin B1 Today Z00.00 - Encounter for general adult medical examination without abnormal findings C Reactive Protein Today Z00.00 - Encounter for general adult medical examination without abnormal findings Magnesium Today Z00.00 - Encounter for general adult medical examination without abnormal findings Phosphorus Today Z00.00 - Encounter for general adult medical examination without abnormal findings Patient Instructions: Patient Instructions - Do not take aspirin three days before your cataract surgery and for two days after the surgery. - Check your blood pressure regularly and observe for significant changes, reporting any concerns. - Continue with your current medications as prescribed. - Get the recommended blood work done today if possible, excluding the cholesterol panel. - Attend your scheduled cardiology appointments and echocardiogram for further cardiovascular evaluation. - Return to your production technician post-surgery as directed. - Follow up in six months unless otherwise needed. Scribe Plan - Not visible on output: History of Present Illness The patient is an 79-year-old male presenting for a preoperative evaluation related to left eye cataract surgery. His medical history includes cataract, peripheral vascular disease, atherosclerotic cardiovascular disease, bilateral carotid artery stenosis, nonrheumatic aortic stenosis, abdominal aortic aneurysm without rupture, essential hypertension, hypothyroidism, chronic obstructive pulmonary disease (COPD), hypercholesterolemia, gastroesophageal reflux disease (GERD), benign prostatic hyperplasia (BPH), anxiety disorder, and insomnia. He is currently being managed on various medications including metoprolol, omeprazole, tamsulosin, atorvastatin, and Symbicort. His hypertension remains consistently elevated in clinical settings but is otherwise managed well at home. The patient reports no current chest pain or shortness of breath. He has an upcoming echocardiogram scheduled, which, along with his cardiology consultation, will further assess his cardiac status. The patient is instructed to avoid aspirin three days before and after surgery to mitigate bleeding risk. Blood work has been advised, with a recommendation to exclude fasting tests if necessary. His lipid levels are a secondary concern at this point due to age. Routine follow-ups with cardiology and after surgery were planned. Social History - The patient did not provide specific information regarding employment, housing, family status, or lifestyle habits, and no relevant social history details were documented in the conversation. Review of Systems - Cardiovascular: Denies chest pain. - Respiratory: Denies shortness of breath. - Gastrointestinal: Reports acid reflux. Physical Exam Appearance: Alert. Oriented X3. No acute distress. Head: Normal external exam. Normocephalic. Atraumatic. Eyes: Pupils are equal, round, and reactive to light. Extraocular movements intact. Conjunctiva and sclera normal. Eyelids normal. Ears: External auditory canal normal. Tympanic membranes normal. Throat: Pharynx normal. Uvula midline. Moist mucous membranes. Neck: Normal inspection. Neck supple. Full range of motion. No adenopathy. Thyroid Normal. No meningeal signs. No neck mass noted. Cardiovascular: Normal heart rate and rhythm. Heart sound normal. Murmur noted. Pulses normal throughout. Respiratory: No respiratory distress. Painless inspiration. Breath sounds normal. No wheezes/rales/rhonchi noted. Chest nontender. No accessory muscle usage noted or decreased air movement noted. Abdomen: Soft and nontender. Bowel sounds normal in all 4 quadrants. No distention noted. No organomegaly noted. No visible injury noted. Back: No costovertebral angle tenderness. Full range of motion noted. Skin: Skin warm and dry. Normal skin color. Normal skin turgor. No rashes/lesions/lacerations noted. Extremities: No lower extremity edema. Extremities exhibit normal range of motion. Extremities nontender. Neuro: Oriented X 3. No motor deficit. No sensory deficit. Reflexes normal. Results - Labs: Blood work from the previous year mentioned, with suggestive non-fasting tests recommended. - Procedures: Upcoming echocardiogram scheduled. Plan Patient was informed and verbally consented to the use of an ambient scribe for clinic note documentation during this visit. 1. Atherosclerotic Cardiovascular Disease Maintain regular cardiology surveillance and continue aspirin daily, barring perioperative restrictions, to manage cardiovascular risk. 2. Essential Hypertension Continue metoprolol therapy and educate the patient to routinely monitor blood pressure at home, acknowledging in-office elevation possibly due to white coat syndrome. 3. Gastroesophageal Reflux Disease Gerd Maintain current regimen with omeprazole, assessing symptom control to ensure optimal efficacy. 4. Hypothyroidism Continue existing thyroid hormone replacement therapy, ensuring current treatment efficacy is maintained through regular TSH assessments. 5. Chronic Obstructive Pulmonary Disease Copd Maintain current treatment with albuterol as needed and regular Symbicort usage. Monitor pre and post-surgical respiratory status closely. 6. Cataract, Left Eye Proceed with cataract surgery on December 02, 2024. To mitigate potential bleeding risks, aspirin usage should be discontinued three days before and resumed two days post-surgery, adhering strictly to ophthalmological guidelines. Discussion Notes I discussed the preoperative plans with the patient, emphasizing modification of aspirin usage around the surgical period to mitigate bleeding risk. We reviewed continuation of his current medications applicable to hypertension, COPD, GERD, and hypothyroidism during this period. I outlined the necessity of obtaining non-fasting blood work today and emphasized capturing any symptom progression, particularly regarding angina or new onset respiratory distress. The patient was advised to complete the scheduled cardiology follow-up including the echocardiogram for comprehensive cardiovascular evaluation. We discussed the procedural benefits and risks of the upcoming cataract surgery, ensuring he appreciated the necessity of postoperative check-ins. Regular follow-up intervals post-surgery were agreed upon to monitor symptom resolution and surgery outcomes. Patient Instructions - Do not take aspirin three days before your cataract surgery and for two days after the surgery. - Check your blood pressure regularly and observe for significant changes, reporting any concerns. - Continue with your current medications as prescribed. - Get the recommended blood work done today if possible, excluding the cholesterol panel. - Attend your scheduled cardiology appointments and echocardiogram for further cardiovascular evaluation. - Return to your production technician post-surgery as directed. - Follow up in six months unless otherwise needed.
--- OUTSIDE RECORDS SUMMARY | 2024-11-15 17:24 | XMS_ITS | Encounter Summary ---
Author Organization [facility] Address [address] [place] [address] Care Team Providers Care Seo Engineer Name Role Phone Unavailable Primary Care Provider Unavailabl e Reason for Visit * Reason Comments Medication Refill Encounter Details Date Type Department Care Team (Late st Contact Info) Description 09/11/2019 Refill [facility] [place] [address] Luiz Knowles MD Social History Tobacco Use Types Packs/Day Years Used Date Smoking Tobacco: Never Assessed Sex and Gender Information Value Date Recorded Sex Assigned at Not on file Gender Identity Not on file Sexual Orientation Not on file documented as of this encounter Plan of Treatment Not on file documented as of this encounter Visit Diagnoses Not on filedocumented in this encounter
--- OUTSIDE RECORDS SUMMARY | 2024-11-15 17:24 | XMS_ITS | Encounter Summary ---
Author Organization [facility] Address [address] [place] [address] Care Team Providers Care Sock Knitting Machine Operator Name Role Phone Unavailable Primary Care Provider Unavailabl e Reason for Visit * Reason Comments Medication Refill Encounter Details Date Type Department Care Team (Late st Contact Info) Description 07/09/2019 Refill [facility] [place] [address] Luiz Knowles MD Social History Tobacco Use [...]
--- OUTSIDE RECORDS SUMMARY | 2024-11-15 17:24 | XMS_ITS ---
Author Organization [facility] Address [address] [place] [address] Care Team Providers Care Machine Binder Stripper Name Role Phone Luiz Knowles Primary Care Provider Tania Gamboa [phone] REASON FOR VISIT BUY 1 bag [employer] Encounters Encounter Location Date Provider Diagnosis [facility] [address] [place] [address] 02/06/2024 Tania Gamboa Plan Of Treatment Next Appt Details Provider Name:Tania wheeler, 11/26/2024 02:30:00 PM, [address] [place], [address], Progress Notes * Ag ANDRADE DDOB:[birth year] (78 yo M)Acc No.[id number]:02/06/2024 Patient:?Ag Andrade :1945???Age:78 Y???Sex:Male Address:[address] , [place], [address] * true * Date:? Generated for Printi dahiana/Ashley/eTransmitting on:?11/15/2024 05:24 PM EST
--- OUTSIDE RECORDS SUMMARY | 2024-11-15 17:24 | XMS_ITS | Encounter Summary ---
Author Organization [facility] Address [address] [place] [address] Care Team Providers Care Blackjack Pit Boss Name Role Phone Unavailable Primary Care Provider Unavailabl e Reason for Visit * Reason Comments Medication Refill Encounter Details Date Type Department Care Team (Late st Contact Info) Description 07/29/2019 Refill [facility] [place] [address] Luiz Knowles MD Social History Tobacco Use [...]
--- OUTSIDE RECORDS SUMMARY | 2024-11-15 17:24 | XMS_ITS | Clinical Summary ---
Author Organization [facility] Address [address] [place] [address] Care Team Providers Care Medical Geneticist Name Role Phone Unavailable Primary Care Provider Unavailabl e Social History Tobacco Use Types Packs/Day Years Used Date Smoking Tobacco: Never Assessed Sex and Gender Information Value Date Recorded Sex Assigned at Not on file Gender Identity Not on file Sexual Orientation Not on file Plan of Treatment Health Maintenance Due Date Last Done Comments DTaP/Tdap/Td Vaccines (1 - Tdap) 1962 Pneumococcal Vaccines 50+ (1 of 1 - PCV) 1993 Zoster (Shingles) Vaccine (1 of 2) 1993 RSV Vaccine 60 years and old er and Patients (1 - 1-dose 75+ series) 2018 COVID-19 Vaccine ( - 2023-2 5 season) 2024 Hepatitis B Vaccines Aged Out No long er eligible based on patient's age to complete this topic
--- OUTSIDE RECORDS SUMMARY | 2024-11-15 17:24 | XMS_ITS | Encounter Summary ---
Author Organization [facility] Address [address] [place] [address] Care Team Providers Care Dispute Coordinator Name Role Phone Unavailable Primary Care Provider Unavailabl e Reason for Visit * Reason Comments Medication Refill Encounter Details Date Type Department Care Team (Late st Contact Info) Description 09/12/2019 Refill [facility] [place] [address] Luiz Knowles MD Social History Tobacco Use [...]
--- OUTSIDE RECORDS SUMMARY | 2024-11-15 17:25 | XMS_ITS | Encounter Summary ---
Author Organization [facility] Address [address] [place] [address] Care Team Providers Care Rn Examiner Name Role Phone Unavailable Primary Care Provider Unavailabl e Reason for Visit * Reason Comments Medication Refill Encounter Details Date Type Department Care Team (Late st Contact Info) Description 06/06/2019 [place] [address] Luiz Knowles MD Social History Tobacco Use Types Packs/Day Years Used Date Smoking Tobacco: Never Assessed Sex and Gender Information Value Date Recorded Sex Assigned at Not on file Gender Identity Not on file Sexual Orientation Not on file documented as of this encounter Miscellaneous Notes * Telephone Encounter - Florinda Benavides RN - 06/07/2019 9:42 AM EDT Not our patient in this office documented in this encounter Plan of Treatment Not on file documented as of this encounter Visit Diagnoses Not on filedocumented in this encounter
--- OUTSIDE RECORDS SUMMARY | 2024-11-15 17:25 | XMS_ITS | Patient Health Record ---
Author Organization [facility] j[facility]ica [facility] Address [address] [facility] [place] [address] Care Team Providers Care Metal Furrer Name Role Phone Luiz Knowles Primary Care Provider Tania Gamboa Unavailable [phone] Allergies Allergen (clinical drug ingredient) Drug/Non Drug Allergy documented on EMR Reaction Allergy Type Onset Date Status Substance with penicillin structure and antibacterial mechanism of action (substance) Penicillins anaphylaxis Drug Allergy Active Reason For Referral No Information Medications Medication SIG (Take, Route, Frequency, Duration) Notes Start Date End Date Status LORazepam 0.5 MG 1 tablet at bedtime as needed Orally Once a day Active Ammonium Lactate 12 % 1 application to affected area Externally to feet Twice a day for 30 days Not-Taking Ventolin HFA Not-Clifton ing Ammonium Lactate 12 % 1 application Exte rnally Twice a day for 30 days Active Lisinopril 20 MG as directed Orally Active Ammonium Lactate 12 % 1 application Exte rnally to affected areas of dry skin to feet except for between the toes Twice a day for 30 days Active Symbicort Active Ciclopirox Olamine 0.77 % 1 application Externally Twice a day to skin of feet including between the toes for 30 days Active Zolpidem Tartrate 5 MG 1 tablet at bedti me Orally Once a day Active Omeprazole 20 MG 1 capsule 30 minutes before morning meal Orally Once a day for 30 day(s) Active Flomax 0.4 MG 1 capsule Orally Onc e a day for 30 day(s) Active Metoprolol Succinate 50 MG 1 capsule Orally Once a day for 30 day(s) Active Social History Tobacco Use: Social History Observation Description Date Details (start date - stop date) Former Smoker NA - NA Tobacco Use/Smoking Question Answer Notes Are you a: former smoker Additional Findings: Tobacco Non-User Ex-cigaret te smoker Alcohol Screen Question Answer Notes Did you have a drink containing alcohol in the p ast year? No Points 0 Interpretation Negative Tobacco use other than smoking: Question Answer Notes Are you an other tobacco user? No Problems Problem Type SNOMED Code ICD Code Onset Dates Problem Status W/U Status Risk Notes Problem 700415090 Hammertoe of lef t foot (M20.42) Active confirmed Problem [id number] Atherosclerosi s of artery of both lower extremities (I70.203) Active confirmed Vital Signs Blood pressure diastolic 80 mm Hg 08/27/2024 Height 5 ft 9 in in 08/27/2024 Blood pressure systolic 132 mm Hg 08/27/2024 Weight 140 lbs 08/27/2024 BMI 20.67 kg/m2 08/27/2024 Encounters Encounter Location Date Provider Diagnosis [address] [address] 02/06/2024 Tania Perica Xerosis of skin L85. 3 ; Contusion of lesser toe of left foot without damage to nail, initial encounter S90.122A ; Tinea unguium B35.1 ; Pain in toe of left foot M79.675 ; Pain in toe of right foot M79.674 ; Atherosclerosis of artery of both lower extremities I70.203 ; Other viral warts B07.8 ; Pain in left foot M79.672 and Hammertoe of left foot M20.[address] [address] 05/21/2024 Tania Perica Xerosis of skin L85. 3 ; Atherosclerosis of artery of both lower extremities I70.203 ; Tinea unguium B35.1 ; Pain in toe of left foot M79.675 ; Pain in toe of right foot M79.674 ; Other viral warts B07.8 ; Pain in left foot M79.672 and Hammertoe of left foot M20.[address] [address] 08/27/2024 Tania Perica Xerosis of skin L85. 3 ; Atherosclerosis of artery of both lower extremities I70.203 ; Tinea unguium B35.1 ; Pain in toe of left foot M79.675 ; Pain in toe of right foot M79.674 ; Other viral warts B07.8 ; Pain in left foot M79.672 and Tinea pedis of both feet B35.3 [facility] [address] [place] [address] 02/06/2024 Tania Gamboa Assessments Encounter Date Diagnosis (ICD Code) Assessment Notes Treatment Notes Treatment Clinical Notes Section Notes 02/06/2024 Xerosis of skin (ICD-10 - L85.3) 02/06/2024 Contusion of lesser toe of left foot without damage to nail, initial encounter (ICD-10 - S90.122A) 05/21/2024 Xerosis of skin (ICD-10 - L85.3) 05/21/2024 Atherosclerosis of artery of both lower extremities (ICD-10 - I70.203) 08/27/2024 Xerosis of skin (ICD-10 - L85.3) 08/27/2024 Atherosclerosis of artery of both lower extremities (ICD-10 - I70.203) 08/27/2024 Tinea unguium (ICD-10 - B35.1) 05/21/2024 Tinea unguium (ICD-10 - B35.1) 02/06/2024 Tinea unguium (ICD-10 - B35.1) 02/06/2024 Pain in toe of left foot (ICD-10 - M79.675) 05/21/2024 Pain in toe of left foot (ICD-10 - M79.675) 08/27/2024 Pain in toe of left foot (ICD-10 - M79.675) 08/27/2024 Pain in toe of right foot (ICD-10 - M79.674) 05/21/2024 Pain in toe of right foot (ICD-10 - M79.674) 02/06/2024 Pain in toe of right foot (ICD-10 - M79.674) 02/06/2024 Atherosclerosis of artery of both lower extremities (ICD-10 - I70.203) 05/21/2024 Other viral warts (ICD-10 - B07.8) 08/27/2024 Other viral warts (ICD-10 - B07.8) 05/21/2024 Pain in left foot (ICD-10 - M79.672) 08/27/2024 Pain in left foot (ICD-10 - M79.672) 02/06/2024 Other viral warts (ICD-10 - B07.8) 02/06/2024 Pain in left foot (ICD-10 - M79.672) 08/27/2024 Tinea pedis of both feet (ICD-10 - B35.3) 05/21/2024 Hammertoe of left foot (ICD-10 - M20.42) 02/06/2024 Hammertoe of left foot (ICD-10 - M20.42) Plan Of Treatment Next Appt Details Provider Name:Tania wheeler, 11/26/2024 02:30:00 PM, [address] [place] [address], [phone], Insurance Providers Payer Name Payer Address Payer Phone Subscriber Number Group Number Insured Name Patient Relationship to Insured Coverage Start Date Coverage End Date Medicare National [employer] [address] [place] [address] [id number] Ag Garcia Self - patient is the insured [employer] [address] [place] [address] [id number] Ag Garcia Self - patient is the insured Medical (General) History Medical History History ICD Code Anxiety Cataracts Measles Mumps Chicken pox Joint implants/screws Transfusions Surgical History Surgery Date(Month/Year) hernia hip replacement aneurysm repair
--- OUTSIDE RECORDS SUMMARY | 2024-11-15 17:25 | XMS_ITS ---
[facility] Address [address] [facility] [place] [address] Care Team Providers Care Fitting Room Supervisor Name Role Phone Luiz Knowles Primary Care Provider Tania Gamboa [phone] Allergies Allergen (clinical drug ingredient) Drug/Non Drug Allergy documented on EMR Reaction Allergy Type Onset Date Status Substance with penicillin structure and antibacterial mechanism of action (substance) Penicillins anaphylaxis Drug Allergy Active REASON FOR VISIT At Risk Footcare, Painful Nail(s) aggrevated by shoes and causing difficulty standing/walking., Wart(s) Medications Medication SIG (Take, Route, Frequency, Duration) Notes Start Date End Date Status Ammonium Lactate 12 % 1 application Exte rnally Twice a day for 30 days Active Metoprolol Succinate 50 MG 1 capsule Orally Once a day for 30 day(s) Active LORazepam 0.5 MG 1 tablet at bedtime as needed Orally Once a day Active Omeprazole 20 MG 1 capsule 30 minutes before morning meal Orally Once a day for 30 day(s) Active Flomax 0.4 MG 1 capsule Orally Onc e a day for 30 day(s) Active Lisinopril 20 MG as directed Orally Active Symbicort Active Ammonium Lactate 12 % 1 application to affected area Externally to feet Twice a day for 30 days Not-Taking Ventolin HFA Not-Clifton ing Zolpidem Tartrate 5 MG 1 tablet at bedti me Orally Once a day Active Social History Tobacco Use: Social History Observation Description Date Details (start date - stop date) Former Smoker NA - NA Tobacco Use/Smoking Question Answer Notes Are you a: former smoker Additional Findings: Tobacco Non-User Ex-cigaret te smoker Tobacco use other than smoking: Question Answer Notes Are you an other tobacco user? No Vital Signs Height 5 ft 9 in in 05/21/2024 Weight 140 lbs 05/21/2024 BMI 20.67 kg/m2 05/21/2024 Encounters Encounter Location Date Provider Diagnosis [facility] [address] [place] [address] 05/21/2024 Tania Gamboa Xerosis of skin L85. 3 ; Atherosclerosis of artery of both lower extremities I70.203 ; Tinea unguium B35.1 ; Pain in toe of left foot M79.675 ; Pain in toe of right foot M79.674 ; Other viral warts B07.8 ; Pain in left foot M79.672 and Hammertoe of left foot M20.42 Assessments Encounter Date Diagnosis (ICD Code) Assessment Notes Treatment Notes Treatment Clinical Notes Section Notes 05/21/2024 Xerosis of skin (ICD-10 - L85.3) 05/21/2024 Atherosclerosis of artery of both lower extremities (ICD-10 - I70.203) 05/21/2024 Tinea unguium (ICD-10 - B35.1) 05/21/2024 Pain in toe of left foot (ICD-10 - M79.675) 05/21/2024 Pain in toe of right foot (ICD-10 - M79.674) 05/21/2024 Other viral warts (ICD-10 - B07.8) 05/21/2024 Pain in left foot (ICD-10 - M79.672) 05/21/2024 Hammertoe of left foot (ICD-10 - M20.42) Plan Of Treatment Next Appt Details Follow Up: 3 Months, Reason: Provider Name:Tania wheeler, 11/26/2024 02:30:00 PM, [address] [place], [address], Procedure Notes * Category Sub-Category Detail Notes Wart Treatment Procedure Verrucae were de brided to pin-point bleeding margins with sterile 15 surgical blade, silver nitrate chemocautery applied, recomm. immune-boosting meds such as zinc, recomm. follow up with topical chemosurgical agents, Pt defers any other forms of tx (97948) Debride Nail 6-10 Nail debridement Nail debridem ent performed extensively to reduce/remove overall nail length and girth, subungual debris, and necrotic tissue, by manual and electrical means with use of a nail nipper and/or dremel, to more viable healthy nail plate or bed tissue 6-10. Silver nitrate used for any petechial bleeding as necessary. Patient chooses, no pharmaceutical tx (92720) Keratoma Treatment Parring or Cutting o f Benign Hyperkeratotic Lesion(s) 79171 ( >4 Lesions) - The Benign hyperkeratotic lesions, as described above were pared, and/or cut utilizing a sterile #15 blade, tissue nippers, and/or dremel , Q8 Progress Notes * Ag ANDRADE DDOB:[birth year] (79 yo M)Acc No.[id number]:05/21/2024 Progress Note Patient:?Ag Andrade D Provider:?Tania Gamboa DPM :1945???Age:79 Y???Sex:Male Joe e:05/21/2024 Address:[address] [place] [address], [facility] Pcp:Luiz Knowles Subjective: * Chief Complaints: * ???At Risk FootcarePainful N ail(s) aggrevated by shoes and causing difficulty standing/walking.Wart(s) * HPI: ???At Risk footcare:?Pt States Last PCP Visit:?Date?12/11/2023 ???Skin problems:?Pt States PCP Visit: ?DATE?12/11/2023 * ROS:?General/Constitutional:?Nausea?denies, denies.?Vomiting?denies, denies.?Hunger Thirst?denies, denies.?Loss appetite?denies, denies.?Chills?denies, denies.?Fatigue?denies, denies.?Fever?denies, denies.?Night Sweats denies, denies.?Unexplained weight loss?denies, denies.?Unexplained weight gain?denies, denies.?HEENTM:?Dentures?denies, denies.?Dizziness?denies, denies.?Glasses/contacts?admits, admits.?Retinopathy?denies, denies.?Blurred/double vision?denies, denies.?TMJ?denies, denies.?Discharge/drainage?denies, denies.?Implants?denies, denies.?Sore throat?denies, denies.?Dental implants?denies, denies.?Hard of hearing ?admits, admits.?Difficulty chewing/swallowing/speaking?denies, denies.?Nose bleeds?denies, denies.?Sore mouth?denies, denies.?Respiratory:?On Oxygen?denies, denies.?Pneumonia/pleurisy?denies, denies.?Bronchitis?denies, denies.?Emphysema?denies, denies.?Coughing?denies, denies.?Cough blood?denies, denies.?Shortness of breath?denies, denies.?Wheezing?denies, denies.?Cardiovascular:?Pacemaker?denies, denies.?MVP?denies, denies.?WPW?denies, denies.?CHF?denies, denies.?Heart attack?denies, denies.?Septal defect?denies, denies.?Rapid beat?denies, denies.?Chest pain ?denies, denies.?Atrial Fib.?denies, denies.?Murmur/Palpitations?denies, denies.?Gastrointestinal:?Hemorrhoids?denies, denies.?Stomach/Abdominal pain?denies, denies.?Dark blood stool?denies, denies.?Irritable bowel ?denies, denies.?Constipation?denies, denies.?Diarrhea?denies, denies.?Hematology:?Swelling?denies, denies.?Clots?denies, denies.?Varicose Veins?admits, admits.?Bruising?denies, denies.?Bleeding problem?denies, denies.?Genitourinary:?Blood urine?denies, denies.?Frequent/Painfu/urination/bladder control?denies, denies.?Kidney stones?denies, denies.?Infection (UTI)?denies, denies.?Nephropathy?denies, denies.?sex trans dis (STD)?denies, denies.?Prostate?admits, admits.?Musculoskeletal:?Hammertoes?admits, admits.?Bunions?denies, denies.?Back Pain?admits, admits.?Muscle Cramps/ Resting?denies, denies.?Muscle cramps / walking?admits, admits.?Generalized aches and pains?denies, denies.?Weakness?denies, denies.?Integ.:?Gil?denies, denies.?Scars?denies, denies.?Corns/calluses?denies, denies.?Ingrown nails?denies, denies.?Painful nails?denies, denies.?Open Sores?denies, denies.?Rashes?denies, denies.?Neurologic:?Difficulty sleeping?denies, denies.?Brain disorder?denies, denies.?Numbness?denies, denies.?Balance trouble?denies, denies.?Confusion?denies, denies.?Fainting/blackouts?denies, denies.?Tingling?admits, admits.?Tremors?denies, denies.? * Medical History:? * Surgical History:?hernia hip replacement aneurysm repair * Hospitalization/Major Diagno stic Procedure:?Denies Past Hospitalization * Family History:?Mother: dece ased.?Father: , diagnosed with Other malignant neoplasm of unspecified site.? * Social History:?Tobacco Use:?Tobacco Use/Smoking?Are you a:?former smoker ?Additional Findings: Tobacco Non-User?Ex-cigarette smoker ?Tobacco use other than smoking?Are you an other tobacco user??No ???Miscellaneous:?Caffeine: yes, 1 cup per day. ?Children: yes. ?no Exercise. ?Marital status: . ?Occupation: Retired/ [employer] * Medications:?TakingLORazepam 0.5 MG Tablet 1 tablet at bedtime as needed Orally Once a dayMetoprolol Succinate 50 MG Capsule ER 24 Hour Sprinkle 1 capsule Orally Once a dayFlomax 0.4 MG Capsule 1 capsule Orally Once a dayOmeprazole 20 MG Capsule Delayed Release 1 capsule 30 minutes before morning meal Orally Once a dayZolpidem Tartrate 5 MG Tablet 1 tablet at bedtime Orally Once a daySymbicort Lisinopril 20 MG Tablet as directed Orally Ammonium Lactate 12 % Cream 1 application Externally Twice a dayTaking LORazepam 0.5 MG Tablet 1 tablet at bedtime as needed Orally Once a dayTaking Metoprolol Succinate 50 MG Capsule ER 24 Hour Sprinkle 1 capsule Orally Once a dayTaking Flomax 0.4 MG Capsule 1 capsule Orally Once a dayTaking Omeprazole 20 MG Capsule Delayed Release 1 capsule 30 minutes before morning meal Orally Once a dayTaking Zolpidem Tartrate 5 MG Tablet 1 tablet at bedtime Orally Once a dayTaking Symbicort Taking Lisinopril 20 MG Tablet as directed Orally Taking Ammonium Lactate 12 % Cream 1 application Externally Twice a dayNot-Taking/PRNVentolin HFA Ammonium Lactate 12 % Cream 1 application to affected area Externally to feet Twice a dayMedication List reviewed and reconciled with the patientNot-Taking/PRN Ventolin HFA Not-Taking/PRN Ammonium Lactate 12 % Cream 1 application to affected area Externally to feet Twice a dayMedication List reviewed and reconciled with the patient * Allergies:?Penicillins: anap hylaxisyes[Allergies Verified] Objective: * Vitals:?Ht: 5 ft 9 in, Wt: 1 40, BMI: 20.67, Shoe size: 9.5, Wt-k.5 kg. * Examination: ???Vascular: ?DP PULSES:? 0/4, B/L.?PT PULSES:? 0/4, B/L.?CAPILLARY FILL TIME:? delayed, all digits, B/L.?SKIN TEMPERTURE GRADIENT OF THE LOWER EXTERMITIES:? decreased, cool to cool, proximal to distal, B/L.?HAIR GROWTH/TEXTURE/ELASTICITY/TURGOR:? decreased, B/L.?PIGMENTATION:?pale, B/L.?EDEMA:?2/4 , non-pitting , B/L , Ankle(s).?TAINA'S SIGN:?absent, B/L.?PALPABLE CORDS:?absent, B/L.?Nails: ?NAILS are:? Elongated, overgrown, dystrophic, lytic, greater than 3mm thick, discolored and friable with crumbly malodorous subungual debris, with pain on palpation, 1-5 B/L , Nail plate intact.?Dermatologic: ?SKIN FINDINGS:?Skin exam reveals Keratotic lesion(s) located at ,TA, T5, Sub 1st MTH, Heels, Skin shows sign(s) of, dryness, scaling, in a stocking fashion, no fissure(s) present, B/L?.?VERRUCA:?Reveals a Single , multi-loculated , mosaic-patterned, round, raised, flat-topped, petechial bleeding papule(s), with cauliflower appearance and interruption of skin lines, pain to lateral compression, and size estimated at 3 mm diameter lateral 5th met base left.? 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 Plan: * Treatment: * Procedures:?Debride Nail 6-10:?Nail debridement?Nail debridement performed extensively to reduce/remove overall nail length and girth, subungual debris, and necrotic tissue, by manual and electrical means with use of a nail nipper and/or dremel, to more viable healthy nail plate or bed tissue 6-10. Silver nitrate used for any petechial bleeding as necessary. Patient chooses, no pharmaceutical tx (83676).?Keratoma Treatment:?Parring or Cutting of Benign Hyperkeratotic Lesion(s)?57428 ( >4 Lesions) - The Benign hyperkeratotic lesions, as described above were pared, and/or cut utilizing a sterile #15 blade, tissue nippers, and/or dremel , Q8.?Wart Treatment:?Procedure?Verrucae were debrided to pin-point bleeding margins with sterile 15 surgical blade, silver nitrate chemocautery applied, recomm. immune-boosting meds such as zinc, recomm. follow up with topical chemosurgical agents, Pt defers any other forms of tx (00355).? * Procedure Codes:?55297 DEBRI DE NAIL, 6 OR MORE, Modifiers: XS 59279 Wart Destruction, 1-14, Modifiers: XS 38505 TRIM SKIN LESIONS, OVER 4, Modifiers: XS , Q8 * Follow Up:?3 Months * Images: * Sign off status: Completed true * Provider:?Tania Gamboa, MANISHA Date:?06/2024 Generated for James talbot/Ashley/eTransmitting on:?11/15/2024 05:25 PM EST History and Physical Notes * HPI (History of Present Illness) Category Sub-Category Detail Notes Category Not es Skin problems Pt States PCP Visit: DATE: 12/11/2023 At Risk footcare Pt States Last PCP Visit: Date: Examination Category Sub-Category Detail Notes Category Not es Dermatologic SKIN FINDINGS: Skin exam reveal s Keratotic lesion(s) located at ,TA, T5, Sub 1st MTH, Heels, Skin shows sign(s) of, dryness, scaling, in a stocking fashion, no fissure(s) present, B/L VERRUCA: Reveals a Single , m ulti-loculated , mosaic-patterned, round, raised, flat-topped, petechial bleeding papule(s), with cauliflower appearance and interruption of skin lines, pain to lateral compression, and size estimated at 3 mm diameter lateral 5th met base left Vascular DP PULSES (B): 0/4, B/L PT PULSES (B): 0/4, B/L CAPILLARY FILL TIME: delayed, all digits , B/L TEMPERTURE GRADIENT (C): decreased, cool to cool, proximal to distal, B/L TROPHIC CONDITION-TEXTURE/ELASTICITY/TURGOR/HAIR GROWTH (B): decreased, B/L EDEMA (C): 2/4 , non-pitting , B/L , Ankle(s) TAINA'S SIGN: absent, B/L PALPABLE CORDS: absent, B/L PIGMENTATION: pale, B/L Nails NAILS are: Elongated, overg rown, dystrophic, lytic, greater than 3mm thick, discolored and friable with crumbly malodorous subungual debris, with pain on palpation, 1-5 B/L , Nail plate intact
--- OUTSIDE RECORDS SUMMARY | 2024-11-15 17:25 | XMS_ITS ---
[facility] Address [address] [place] [address] Care Team Providers Care Earth Observations Chief Scientist Name Role Phone Luiz Knowles Primary Care Provider Tania Gamboa [phone] Allergies Allergen (clinical drug ingredient) Drug/Non Drug Allergy documented on EMR Reaction Allergy Type Onset Date Status Substance with penicillin structure and antibacterial mechanism of action (substance) Penicillins anaphylaxis Drug Allergy Active REASON FOR VISIT At Risk Footcare, Painful Nail(s) aggrevated by shoes and causing difficulty standing/walking., Wart(s), Skin problem(s) Medications Medication SIG (Take, Route, Frequency, Duration) Notes Start Date End Date Status Ammonium Lactate 12 % 1 application to [...] Twice a day for 30 days Active Ciclopirox Olamine 0.77 % 1 application [...] e a day for 30 day(s) Active LORazepam 0.5 MG 1 tablet at bedtime as needed Orally Once a day Active Metoprolol Succinate 50 MG 1 capsule [...] Signs Height 5 ft 9 in in 08/27/2024 Weight 140 lbs 08/27/2024 BMI 20.67 kg/m2 08/27/2024 Blood pressure systolic 132 mm Hg 08/27/20 24 Blood pressure diastolic 80 mm Hg 024 Encounters Encounter Location Date Provider Diagnosis [facility] [place] [address] [place] [address] 08/27/2024 Tania Gamoba Xerosis of skin L85. 3 ; Atherosclerosis of artery of both lower extremities I70.203 ; Tinea unguium B35.1 ; Pain in toe of left foot M79.675 ; Pain in toe of right foot M79.674 ; Other viral warts B07.8 ; Pain in left foot M79.672 and Tinea pedis of both feet B35.3 Assessments Encounter Date Diagnosis (ICD Code) Assessment Notes Treatment Notes Treatment Clinical Notes Section Notes 08/27/2024 Xerosis of skin (ICD-10 - L85.3) 08/27/2024 Atherosclerosis of artery of both lower extremities (ICD-10 - I70.203) 08/27/2024 Tinea unguium (ICD-10 - B35.1) 08/27/2024 Pain in toe of left foot (ICD-10 - M79.675) 08/27/2024 Pain in toe of right foot (ICD-10 - M79.674) 08/27/2024 Other viral warts (ICD-10 - B07.8) 08/27/2024 Pain in left foot (ICD-10 - M79.672) 08/27/2024 Tinea pedis of both feet (ICD-10 - B35.3) Plan Of Treatment Medication Medication Name Sig Start Date Stop Date Notes Ammonium Lactate 12 % 1 application Exte rnally to affected areas of dry skin to feet except for between the toes Twice a day for 30 days Ciclopirox Olamine 0.77 % 1 application Externally Twice a day to skin of feet including between the toes for 30 days Next Appt Details Follow Up: 3 Months, Reason: Provider Name:Tania wheeler, 11/26/2024 02:30:00 PM, [address] [place] [address], [id number], Procedure Notes * Category Sub-Category Detail Notes Wart Treatment Procedure Verrucae were de brided to pin-point bleeding margins with sterile 15 surgical blade, silver nitrate chemocautery applied, recomm. immune-boosting meds such as zinc, recomm. follow up with topical chemosurgical agents, Pt defers any other forms of tx (35753) Debride Nail 6-10 Nail debridement Due to the cl inical pathology outlined in the exam findings, performance of this nail treatment is medically necessary as its management by an unskilled/untrained nonprofessional would put this patients foot and overall health at risk. Therefore, debridement to affected nail(s), as described in exam ( TA, T1, T2, T3, T4, T5, T6, T7, T8, T9), was performed exclusively by the physician of record to reduce/remove overall nail length, girth, thickness, subungual debris, and necrotic tissue, by manual and/or electrical means through the use of a nail nipper and/or dremel-type floor grinder, to a more viable healthy nail plate or bed tissue 6-10 nails in total. Silver nitrate was used for any petechial bleeding as necessary. Definitive antifungal treatment options, both pharmaceutical and surgical, have been reviewed and discussed with the patient. The patient solely prefers the use of intermittent/as needed professional debridement services for their nail condition and understands the need for additional periodic treatments to maintain effectiveness in symptomatic relief - 01213 Keratoma Treatment Parring or Cutting o f Benign Hyperkeratotic Lesion(s) (-57) More than 4 Lesions - Due to the at risk nature of the patients medical condition as documented in the exam findings, performance of this keratoderma treatment is medically necessary as its management by an unskilled/untrained nonprofessional would put this patients foot and overall health at risk. Therefore, the benign hyperkeratotic lesions, ( 6) in total, locations as stated and described in the exam ( TA, T5, Sub 1st MTH, Heels,B/L ), were pared, and/or cut utilizing a sterile 15 blade, tissue nippers, and/or power dremel instrumentation by the physician of record - 63940, Q8 Progress Notes * Ag ANDRADE DDOB:[birth year] (79 yo M)Acc No.[id number]:08/27/2024 Progress Note Patient:?Ag ANDRADE D Provider:?Tania Gamboa DPM :1945???Age:79 Y???Sex:Male Joe e:08/27/2024 Address:[address] [place] [address], [place], [id number] Pcp:Luiz Knowles Subjective: * Chief Complaints: * ???At Risk FootcarePainful N ail(s) aggrevated by shoes and causing difficulty standing/walking.Wart(s)Skin problem(s) * HPI: ???At Risk footcare:?Pt States Last PCP Visit:?Date?07/12/2024 ???Skin problems:?Pt States PCP Visit: ?DATE?07/12/2024 ?Nature:?scaling , redness, fissure left heel.?Location:?B/L .?Duration:?several days.?Course:?worse.? * ROS:?General/Constitutional:?Nausea?denies.?Vomiting?denies.?Hunger Thirst?denies.?Loss appetite?denies.?Chills?denies.?Fatigue?denies.?Fever?denies.?Night Sweats?denies.?Unexplained weight loss?denies.?Unexplained weight gain?denies.?HEENTM:?Dentures?denies.?Dizziness?denies.?Glasses/contacts?admits.?Retinopathy?de nies.?Blurred/double vision?denies.?TMJ?denies.?Discharge/drainage?denies.?Implants?denies.?Sore throat?denies.?Dental implants?denies.?Hard of hearing ?admits.?Difficulty chewing/swallowing/speaking?denies.?Nose bleeds?denies.?Sore mouth?denies.?Respiratory:?On Oxygen?denies.?Pneumonia/pleurisy?denies.?Bronchitis?denies.?Emphysema?denies.?C oughing?denies.?Cough blood?denies.?Shortness of breath?denies.?Wheezing?denies.?Cardiovascular:?Pacemaker?denies.?MVP?denies.?WPW?denies.?CHF?denies.?Heart attack?denies.?Septal defect?denies.?Rapid beat?denies.?Chest pain ?denies.?Atrial Fib.?denies.?Murmur/Palpitations?denies.?Gastrointestinal:?Hemorrhoids?denies.?Stomach/Abdominal pain?denies.?Dark blood stool?denies.?Irritable bowel ?denies.?Constipation?denies.?Diarrhea?denies.?Hematology:?Swelling?denies.?Clots?denies.?Varicose Veins?admits.?Bruising?denies.?Bleeding problem?denies.?Genitourinary:?Blood urine?denies.?Frequent/Painfu/urination/bladder control?denies.?Kidney stones?denies.?Infection (UTI)?denies.?Nephropathy?denies.?sex trans dis (STD)?denies.?Prostate?admits.?Musculoskeletal:?Hammertoes?admits.?Bunions?denies.?Back Pain?admits.?Muscle Cramps/ Resting?denies.?Muscle cramps / walking?admits.?Generalized aches and pains?denies.?Weakness?denies.?Integ.:?Gil?denies.?Scars?denies.?Corns/calluses?denies.?Ingrown nails?denies.?Painful nails?denies.?Open Sores?denies.?Rashes?denies.?Neurologic:?Difficulty sleeping?denies.?Brain disorder?denies.?Numbness?denies.?Balance trouble?denies.?Confusion?denies.?Fainting/blackouts?denies.?Tingling?admits.?Tr emors?denies.? * Medical History:? * Surgical History:?hernia hip replacement aneurysm repair * Hospitalization/Major Diagno stic Procedure:?Denies Past Hospitalization * Family History:?Mother: dece ased.?Father: , diagnosed with Other malignant neoplasm of unspecified site.? * Social History:?Tobacco Use:?Tobacco Use/Smoking?Are you a:?former smoker ?Additional Findings: Tobacco Non-User?Ex-cigarette smoker ?Tobacco use other than smoking?Are you an other tobacco user??No * Medications:?TakingLORazepam 0.5 MG Tablet 1 tablet at bedtime as needed Orally Once a day Metoprolol Succinate 50 MG Capsule ER 24 Hour Sprinkle 1 capsule Orally Once a day Flomax 0.4 MG Capsule 1 capsule Orally Once a day Omeprazole 20 MG Capsule Delayed Release 1 capsule 30 minutes before morning meal Orally Once a day Zolpidem Tartrate 5 MG Tablet 1 tablet at bedtime Orally Once a day Symbicort Lisinopril 20 MG Tablet as directed Orally Ammonium Lactate 12 % Cream 1 application Externally Twice a day Taking LORazepam 0.5 MG Tablet 1 tablet at bedtime as needed Orally Once a day Taking Metoprolol Succinate 50 MG Capsule ER 24 Hour Sprinkle 1 capsule Orally Once a day Taking Flomax 0.4 MG Capsule 1 capsule Orally Once a day Taking Omeprazole 20 MG Capsule Delayed Release 1 capsule 30 minutes before morning meal Orally Once a day Taking Zolpidem Tartrate 5 MG Tablet 1 tablet at bedtime Orally Once a day Taking Symbicort Taking Lisinopril 20 MG Tablet as directed Orally Taking Ammonium Lactate 12 % Cream 1 application Externally Twice a day Not-Taking/PRNVentolin HFA Ammonium Lactate 12 % Cream 1 application to affected area Externally to feet Twice a day Medication List reviewed and reconciled with the patientNot-Taking/PRN Ventolin HFA Not-Taking/PRN Ammonium Lactate 12 % Cream 1 application to affected area Externally to feet Twice a day Medication List reviewed and reconciled with the patient * Allergies:?Penicillins: anap hylaxisyes[Allergies Verified] Objective: * Vitals:?Ht: 5 ft 9 in, Wt: 1 40, BMI: 20.67, Shoe size: 9.5, BP: 132/80 mm Hg, Wt-k.5 kg. * Examination: ???Vascular: ?DP PULSES(B):? 0/4, B/L.?PT PULSES(B):? 0/4, B/L.?CAPILLARY FILL TIME:? delayed, all digits, B/L.?TROPHIC CONDITION-TEXTURE/ELASTICITY/TURGOR/HAIR GROWTH(B):? decreased, B/L.?TEMPERTURE GRADIENT(C):? decreased, cool to cool, proximal to distal, B/L.?PIGMENTATION:?pale, B/L.?EDEMA(C):?2/4 , non-pitting , B/L , Ankle(s).?TAINA'S SIGN:?absent, B/L.?PALPABLE CORDS:?absent, B/L.?Nails: ?NAILS are:? Elongated, overgrown, dystrophic, lytic, greater than 3mm thick, discolored and friable with crumbly malodorous subungual debris, with pain on palpation,TA, T1, T2, T3, T4, T5, T6, T7, T8, T9.?Dermatologic: ?SKIN FINDINGS:?Skin exam reveals Keratotic lesion(s) located at ,TA, T5, Sub 1st MTH, Heels, Skin shows sign(s) of, dryness, scaling, in a stocking fashion present, B/L? , Skin shows sign(s) of, erythema, scaling, in a moccasin fashion, no fissure(s) present, B/L , Skin shows sign(s) of, fissure with dried blood left plantar heel, no active drainage, no signs of infection.?VERRUCA:?Reveals a Single , multi-loculated , mosaic-patterned, round, raised, flat-topped, petechial bleeding papule(s), with cauliflower appearance and interruption of skin lines, pain to lateral compression, and size estimated at 3 mm diameter lateral 5th met base left.?General Examination: ?GENERAL APPEARANCE:?Reveals a pleasant, alert, well nourished, well- developed, well hydrated individual, who demonstrates proper attention to hygiene/body habitus, and is in no acute distress, Pt serves as own historian for office visit today.?ORIENTED:?person, place, and time.?Neurological: ?SENSORY:?Neurological exam reveals intact sensorium, pain sensation normal, vibration sensation intact, pinprick sensation is normal in the lower extremities, Pt denies, anesthesia, burning, paresthesia, tingling, B/L.? Assessment: * Assessment: 1.?Xerosis of skin - L85.3 ( Primary)???Specify :Chronic problem, Worse (4)???2.?Atherosclerosis of artery of both lower extremities - I70.203???3.?Tinea unguium - B35.1???4.?Pain in toe of left foot - M79.675???5.?Pain in toe of right foot - M79.674???6.?Other viral warts - B07.8???7.?Pain in left foot - M79.672???8.?Tinea pedis of both feet - B35.3???Specify :Acute problem, Uncomplicated (3),Rx drug management (4)??? Plan: * Treatment: 2.?Tinea pedis of both feet? Start Ciclopirox Olamine Cream, 0.77 %, 1 application, Externally, Twice a day to skin of feet including between the toes, 30 days, 120, Refills 2.?? * Procedures:?Debride Nail 6-10:?Nail debridement?Due to the clinical pathology outlined in the exam findings, performance of this nail treatment is medically necessary as its management by an unskilled/untrained nonprofessional would put this patients foot and overall health at risk. Therefore, debridement to affected nail(s), as described in exam (?TA, T1, T2, T3, T4, T5, T6, T7, T8, T9), was performed exclusively by the physician of record to reduce/remove overall nail length, girth, thickness, subungual debris, and necrotic tissue, by manual and/or electrical means through the use of a nail nipper and/or dremel-type floor grinder, to a more viable healthy nail plate or bed tissue 6- 10 nails in total. Silver nitrate was used for any petechial bleeding as necessary. Definitive antifungal treatment options, both pharmaceutical and surgical, have been reviewed and discussed with the patient. The patient solely prefers the use of intermittent/as needed professional debridement services for their nail condition and understands the need for additional periodic treatments to maintain effectiveness in symptomatic relief - 31426.?Keratoma Treatment:?Parring or Cutting of Benign Hyperkeratotic Lesion(s)?(-57) More than 4 Lesions - Due to the at risk nature of the patients medical condition as documented in the exam findings, performance of this keratoderma treatment is medically necessary as its management by an unskilled/untrained nonprofessional would put this patients foot and overall health at risk. Therefore, the benign hyperkeratotic lesions, ( 6) in total, locations as stated and described in the exam ( TA, T5, Sub 1st MTH, Heels,B/L ), were pared, and/or cut utilizing a sterile 15 blade, tissue nippers, and/or power dremel instrumentation by the physician of record - 38350, Q8.?Wart Treatment:?Procedure?Verrucae were debrided to pin-point bleeding margins with sterile 15 surgical blade, silver nitrate chemocautery applied, recomm. immune-boosting meds such as zinc, recomm. follow up with topical chemosurgical agents, Pt defers any other forms of tx (45600).? * Procedure Codes:?69922 DEBRI DE NAIL, 6 OR MORE, Modifiers: XS 09563 Wart Destruction, 1-14, Modifiers: XS 72679 TRIM SKIN LESIONS, OVER 4, Modifiers: XS , Q8 * Preventive Medicine:? ??Counseling:?Discussion:?-14: Office or other outpatient visit for the evaluation and management of an established patient, which required a medically appropriate history and/or examination and MODERATE level of DECISION MAKING for: 1 OR MORE CHRONIC PROBLEM(S) THATS WORSENING, 2 STABLE CHRONIC PROBLEMS, A NEWLY DIAGNOSED PROBLEM WITH UNCERTAIN PROGNOSIS, AN ACUTE COMPLICATED INJURY WITH MULTIPLE TREATMENT OPTIONS, OR AN ACUTE PROBLEM WITH ACCOMPANYING SYSTEMIC SYMPTOMS, THAT POSE(S) A MODERATE RISK OF MORBIDITY. THIS CONDITION MAY ALSO INCLUDE RX DRUG MANAGEMENT, OR A DECISON FOR MINOR SURGERY. The visit on the day of the encounter encompassed interpreting the data and educating the patient as to the nature of their condition, treatment options available according to their individual PMH, meds, allergies, and overall health/living conditions, as well as any potential risks or complications that may occur from a failure to adhere to, and participate in, the recommended course of therapy. The discussion included a complete verbal, and/or written explanation of the examination results, any x-rays taken, the proposed diagnosis, and outline of the treatment plan. A schedule for future care needs was also explained. The patient verbalized an understanding of the instructions at this time and agreed to be an active participant in their treatment. If the patient should think of any questions or concerns after the visit, I have encouraged the patient to call the office.?Tinea Pedis:?The patient was counseled on the diagnosis, potential etiologies, and treatment options for their skin condition. We discussed the risks and benefits of each option from performing no treatment, to utilizing OTC topical skin creams, prescription topical creams, customized compounded topical medications, and, if necessary, to utilize oral antifungal therapy. We discussed the advantages and disadvantages of each possible treatment and importance for adherence to all the recommended therapies for optimum success and avoid potential complications such as open sore/infection/possible hospitalization. We discussed the potential effectiveness of each topical preparation as well as each ones possible side effects and/or patient medication interactions if oral therapy is selected. Patient questions re: the advantages and disadvantages of each treatment choice, medication use/dosage, successful outcomes, and application consistency were reviewed and the patient verbalized that all answers were clearly understood. The patient was told they can help alleviate symptoms by utilizing moisture absorbant innersoles with activated charcoal and baking soda, applying antifungal sprays daily, aerating toe web spaces at night by putting cotton or lambs wool between the toes, alternating shoe gear daily if possible so they can dry out, changing socks at least once during the day, wearing well-ventilated shoes or sandals. The patient has decided to apply antifungal skin creams to their feet as directed. Rx was sent to their pharmacy at the time of visit.?Xerosis:?The patient was counseled on the diagnosis, potential etiologies, and treatment options for their skin condition. We discussed the risks and benefits of each option from performing no treatment, to utilizing OTC topical skin creams/ointments, to utilizing prescription topical creams/ointments, to utilizing customized compounded topical medications and use of nocturnal occlusion with any/all previously detailed therapies. We discussed the advantages and disadvantages of each possible treatment and importance for adherence to all the recommended therapies for optimum success and avoid potential complications such as open sore/infection/possible hospitalization. We discussed the potential effectiveness of each topical preparation as well as each ones possible side effects and/or patient medication interactions. Patient questions re: use, dosage, successful outcomes, and application consistency were reviewed and the patient verbalized that all answers were clearly understood. The patient has decided to apply Rx skin creams to their feet save the interspaces while paying special attention to the heels. Such was sent to their pharmacy at the time of visit.? * Follow Up:?3 Months * Images: * Sign off status: Completed true * Provider:?Tania Gamboa DPM Date:? Generated for James talbot/Ashley/Rommel on:?11/15/2024 05:24 PM EST History and Physical Notes * HPI (History of Present Illness) Category Sub-Category Detail Notes Category Not es Skin problems Nature: scaling , redness, fissure left heel Location: B/L Duration: several days Course: worse Pt States PCP Visit: DATE: 07/12/2024 At Risk footcare Pt States Last PCP Visit: Date: Examination Category Sub-Category Detail Notes Category Not es Neurological SENSORY: Neurological exa m reveals intact sensorium, pain sensation normal, vibration sensation intact, pinprick sensation is normal in the lower extremities, Pt denies, anesthesia, burning, paresthesia, tingling, B/L Dermatologic SKIN FINDINGS: Skin exam reveal s Keratotic lesion(s) located at ,TA, T5, Sub 1st MTH, Heels, Skin shows sign(s) of, dryness, scaling, in a stocking fashion present, B/L , Skin shows sign(s) of, erythema, scaling, in a moccasin fashion, no fissure(s) present, B/L , Skin shows sign(s) of, fissure with dried blood left plantar heel, no active drainage, no signs of infection VERRUCA: Reveals a Single , m ulti-loculated , mosaic-patterned, round, raised, flat-topped, petechial bleeding papule(s), with cauliflower appearance and interruption of skin lines, pain to lateral compression, and size estimated at 3 mm diameter lateral 5th met base left General Examination GENERAL APPEARANCE: Reveals a pleasant, alert, well nourished, well-developed, well hydrated individual, who demonstrates proper attention to hygiene/body habitus, and is in no acute distress, Pt serves as own historian for office visit today ORIENTED: person, place, and t serge Vascular DP PULSES (B): 0/4, B/L PT [...] crumbly malodorous subungual debris, with pain on palpation,TA, T1, T2, T3, T4, T5, T6, T7, T8, T9
== END 2024-11-15 16:44 | disposition home or self-care (01) ==
PROVIDERS: PCP Internal Medicine; Visit Provider Physician Assistant Medical
DX: I73.9 Peripheral vascular disease, unspecified (principal); I77.810 Thoracic aortic ectasia; J44.9 Chronic obstructive pulmonary disease, unspecified; Z01.818 Encounter for other preprocedural examination; I65.23 Occlusion and stenosis of bilateral carotid arteries; I25.10 Atherosclerotic heart disease of native coronary artery without angina pectoris; E03.9 Hypothyroidism, unspecified; E78.00 Pure hypercholesterolemia, unspecified; I10 Essential (primary) hypertension; F41.1 Generalized anxiety disorder; N40.0 Benign prostatic hyperplasia without lower urinary tract symptoms

== ENCOUNTER 2024-11-15 16:07 | Outpatient (REF) | payer MEDICARE, SELFPAY | END 2024-11-15 16:08 | disposition home or self-care (01) | LOC: HO.LNP 16:07 | PROVIDERS: PCP Internal Medicine; Visit Provider Physician Assistant Medical | DX: Z01.818 Encounter for other preprocedural examination (principal); I73.9 Peripheral vascular disease, unspecified; I65.23 Occlusion and stenosis of bilateral carotid arteries; I77.810 Thoracic aortic ectasia; E03.9 Hypothyroidism, unspecified; J44.9 Chronic obstructive pulmonary disease, unspecified; E78.00 Pure hypercholesterolemia, unspecified; I10 Essential (primary) hypertension; F41.1 Generalized anxiety disorder; N40.0 Benign prostatic hyperplasia without lower urinary tract symptoms; K21.9 Gastro-esophageal reflux disease without esophagitis; I35.0 Nonrheumatic aortic (valve) stenosis | CPT/HCPCS: 96127; 99212 ==

== ENCOUNTER → 2024-11-18 14:35 | Outpatient (REF) | payer MEDICARE, SELFPAY ==
[2024-11-18 14:58] LABS: MANUAL DIFF FLAG NO
--- NOTE | 2024-11-18 15:17 | CA_ITS ---
Transthoracic Echocardiogram Patient (Last, First, Middle): Ag Andrade D Gender: Male Date of : 1945 Age: 79 Procedure Date: 11/18/2024 Procedure Type: Transthoracic Echocardiogram Location: OP Height: 170.18 cm Weight: 60.78 kg BSA: 1.71 m2 Heart Rate: 79 bpm BP: 198 / 92 mmHg Major Assembly Inspector: SB Referring MD: Haim Wilson MD Symptoms: I35.0 - Nonrheumatic aortic (valve) stenosis Study Quality: Adequate ECG Rhythm: Sinus Conclusions: - The left ventricular systolic function is normal. The visually estimated ejection fraction is between 65-70%. 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 - The basal inferior and basal inferolateral segments are hypokinetic. - There is moderate to severe aortic valve stenosis. - There is moderate mitral annular calcification. - There is mild dilatation of the ascending aorta measuring 4.40 cm and mild dilatation of the aortic arch measuring 4.40 cm. - There is a moderate loculated pericardial effusion overlying the right ventricle. Findings Left Ventricle Normal left ventricular cavity size. There is mildly increased left ventricular wall thickness. The left ventricular systolic function is normal. The visually estimated ejection fraction is between 65-70%. Evidence suggests grade I (mild) diastolic dysfunction. There is severe septal asymmetric hypertrophy. Wall Motion Rest Echo Findings The basal inferior and basal inferolateral segments are hypokinetic. Right Ventricle Normal right ventricular cavity size. There is low normal right ventricular systolic function. Atria Both atria are normal in size. Aortic Valve There is moderate calcification of the aortic valve. There is moderate to severe aortic valve stenosis. The peak aortic velocity is 3.86 m/s with a calculated peak gradient of 60 mmHg. The mean gradient is 33 mmHg. The aortic valve area is 0.87 cm2. There is mild aortic valve regurgitation. Dimensionless index 0.23. Mitral Valve There is moderate mitral annular calcification. There is mild mitral valve regurgitation. There is no mitral valve stenosis. Pulmonic Valve The pulmonic valve is likely normal. Tricuspid Valve There is trace tricuspid valve regurgitation. There is no evidence of pulmonary hypertension. Great Vessels There is mild dilatation of the ascending aorta measuring 4.40 cm and mild dilatation of the aortic arch measuring 4.40 cm. Venous The inferior vena cava was not well visualized. Pericardium/Pleural There is a moderate loculated pericardial effusion overlying the right ventricle. Prior Study Comparison Changes noted compared to prior study dated: 06/06/2024. Wall motion abnormality unchanged; see comment on aortic dimensions; better visualized in the current study. Measurements 2D Linear Measurements IVSd: 1.66 0.6-0.9/0.6-1.0 cm LVIDd: 3.74 3.9-5.3/4.2-5.9 cm LVIDd Index: 2.19 2.4-3.2/2.2-3.1 cm/m2 LVIDs: 2.83 2.0-3.6 cm LVPWd: 1.17 0.7-1.1 cm LA Diam: 3.30 2.7-3.8/3.0-4.0 cm LAIDs Index: 1.93 1.5-2.3 cm/m2 LV Mass: 240.53 67-162/88-224 g LV Mass Index: 140.66 43-95/49-115 g/m2 LVOT Diam: 2.20 3.0+(-)1.3 cm 2D Systolic Function EF 4C: 68.00 >55% EF 2C: 60.80 >55% EF BiP: 63.10 >55% Mitral Valve MV Pk E: 0.39 MV PK A: 0.78 E/A: 0.50 E'Lateral: 2.70 E'Medial: 2.48 E/E' Med: 15.60 E/E' Lat: 14.30 Aortic Valve AoV Pk Keith: 3.86 AoV Mn Keith: 2.65 AoV VTI: 0.72 AoV Pk Grad: 60.00 Aov Mn Grad: 33.00 WANDER Cont.VTI: 0.87 LVOT LVOT Pk Keith: 0.88 LVOT Mn Keith: 0.59 LVOT VTI: 0.16 LVOT Pk Grad: 3.00 LVOT Mn Grad: 2.00 LVOT Diam: 2.20 LVOT Area: 3.80 Diastolic Function MV Pk E: 0.39 MV Pk A: 0.78 E/A: 0.50 E'Medial: 2.48 E/E' Med: 15.60 E' Laterial: 2.70 E/E' Lat: 14.30 Right Ventricle TAPSE (mm): 16.70 TVS' Keith: 9.25 Tricuspid Valve TR Pk Keith: 1.55 TR Pk Grad: 10.00 RA Press: 3.00 RVSP: 13.00 Great Vessels Aorta Sinus of Valsalva: 3.60 2.0-3.5 cm Ao Asc: 4.40 2.1-3.4 cm Ao Arch: 4.40 Pulmonary Valve PV Pk Keith: 1.02 Peak PV Grad: 4.00 Updated in Other Vendor System with Status of Final Haim Wilson MD electronically signed on 11/19/2024 10:01:14 AM with status of Final
[2024-11-18 15:56] LABS: Basophils Percent Auto 0.4 % (0-2); Eosinophils Absolute Auto 0.1 X10*3/uL (0.0-0.4); Eosinophils Percent Auto 1.1 % (0-4); Hematocrit 38.8 % (42.0-52.0); Hemoglobin 12.2 g/dl (14.0-18.0); Imm Gran Abs Auto 0.02 X10*3/uL (0.00-0.03); Imm Gran Pct Auto 0.3 % (0.0-0.4); Lymphocytes Absolute Auto 1.2 X10*3/uL (1.2-4.9); Lymphocytes Percent Auto 17.4 % (20-40); Mean Corpuscular HGB Conc 31.4 g/dl (31.0-36.0); Mean Corpuscular Volume 92.4 fL (80.0-98.0); Mean Platelet Volume 12.7 fL (9.4-12.4); Monocytes Absolute Auto 0.6 X10*3/uL (0.1-1.2); Monocytes Percent Auto 7.8 % (2-11); Neutrophils Absolute Auto 5.1 x10*3/uL (2.0-8.3); Platelet Count 128 X10*3/uL (160-400); Red Cell Distribution Width 14.3 % (11.0-16.0)
[2024-11-18 16:01] LABS: Estimated Average Glucose 120 mg/dL; Hemoglobin A1C 128.4434 umol/L; Hemoglobin A1c % 5.8 % (<6.0)
--- OUTSIDE RECORDS SUMMARY | 2024-11-18 16:41 | XMS_ITS | Clinical Summary ---
Author Organization [facility] Address [address] [place] [address] Care Team Providers Care Warehouse Worker 2Nd Shift Name Role Phone Unavailable Primary Care Provider [...]
--- OUTSIDE RECORDS SUMMARY | 2024-11-18 16:42 | XMS_ITS | Encounter Summary ---
Author Organization [facility] Address [address] [place] [address] Care Team Providers Care Flat Machine Cutter Name Role Phone Unavailable Primary Care Provider Unavailabl e Reason for Visit * Reason Comments Medication Refill Encounter Details Date Type Department Care Team (Late st Contact Info) Description 07/29/2019 Refill [facility] [place] [address] Luiz Knowles MD Social History Tobacco Use [...]
--- OUTSIDE RECORDS SUMMARY | 2024-11-18 16:42 | XMS_ITS ---
Author Organization [facility] Address [address] [place] [address] Care Team Providers Care Supervisor Food Checkers And Cashiers Name Role Phone Luiz Knowles Primary Care Provider Tania Gamboa [phone] Allergies Allergen (clinical drug ingredient) Drug/Non Drug [...] 024 Encounters Encounter Location Date Provider Diagnosis [facility] [address] [place] [address] 08/27/2024 Tania Gamboa Xerosis of skin L85. 3 [...] Reason: Provider Name:Tania wheeler, 11/26/2024 02:30:00 PM, [address] [place] [address], [phone], Procedure Notes * Category Sub-Category Detail Notes Wart Treatment Procedure Verrucae were de brided to pin-point bleeding margins with sterile 15 surgical blade, silver nitrate chemocautery applied, recomm. immune-boosting meds such as zinc, recomm. follow up with topical chemosurgical agents, Pt defers any other forms of tx (40990) Debride Nail 6-10 Nail debridement Due to [...] use of a nail nipper and/or dremel-type crankshaft grinder, to a more viable healthy nail [...] to maintain effectiveness in symptomatic relief - 92746 Keratoma Treatment Parring or Cutting o f [...] instrumentation by the physician of record - 89034, Q8 Progress Notes * Ag ANDRADE DDOB:[birth year] (79 yo M)Acc No.[id number]:08/27/2024 Progress Note Patient:?Ag ANDRADE D Provider:?Tania Gamboa DPM :1945???Age:79 Y???Sex:Male Joe e:08/27/2024 Address:[address] [place] [address], [place], [facility] Pcp:Luiz Knowles Subjective: * Chief Complaints: * [...] use of a nail nipper and/or dremel-type crankshaft grinder, to a more viable healthy nail [...] to maintain effectiveness in symptomatic relief - 93213.?Keratoma Treatment:?Parring or Cutting of Benign Hyperkeratotic Lesion(s)?(-57) [...] instrumentation by the physician of record - 51638, Q8.?Wart Treatment:?Procedure?Verrucae were debrided to pin-point bleeding margins with sterile 15 surgical blade, silver nitrate chemocautery applied, recomm. immune-boosting meds such as zinc, recomm. follow up with topical chemosurgical agents, Pt defers any other forms of tx (07939).? * Procedure Codes:?32511 DEBRI DE NAIL, 6 OR MORE, Modifiers: XS 68736 Wart Destruction, 1-14, Modifiers: XS 59008 TRIM SKIN LESIONS, OVER 4, Modifiers: XS [...] Gamboa DPM Date:? Generated for James talbot/Ashley/Rommel on:?11/18/2024 04:42 PM EDT History and Physical Notes * HPI (History of Present Illness) Category Sub-Category Detail Notes Category Not es Skin problems Nature: scaling , redness, fissure left heel Location: B/L Duration: several days Course: worse Pt States PCP Visit: DATE: 07/12/2024 At Risk footcare Pt States Last PCP Visit: Date: 4 Examination Category Sub-Category Detail Notes Category Not [...]
--- OUTSIDE RECORDS SUMMARY | 2024-11-18 16:42 | XMS_ITS | Encounter Summary ---
Author Organization [facility] Address [address] [place] [address] Care Team Providers Care Information Security Officer Name Role Phone Unavailable Primary Care Provider Unavailabl e Reason for Visit * Reason Comments Medication Refill Encounter Details Date Type Department Care Team (Late st Contact Info) Description 09/11/2019 Refill [facility] [place] [address] Luiz Knowles MD Social History Tobacco Use [...]
--- OUTSIDE RECORDS SUMMARY | 2024-11-18 16:42 | XMS_ITS | Encounter Summary ---
Author Organization [facility] Address [address] [place] [address] Care Team Providers Care Bleach Maker Name Role Phone Unavailable Primary Care Provider Unavailabl e Reason for Visit * Reason Comments Medication Refill Encounter Details Date Type Department Care Team (Late st Contact Info) Description 09/12/2019 Refill [facility] [place] [address] Luiz Knowles MD Social History Tobacco Use [...]
--- OUTSIDE RECORDS SUMMARY | 2024-11-18 16:42 | XMS_ITS ---
Author Organization [facility] Address [address] [facility] [place] [address] Care Team Providers Care Health And Safety Consultant Name Role Phone Luiz Knowles Primary Care Provider [phone] Tania Gamboa [phone] Allergies Allergen (clinical drug ingredient) Drug/Non Drug [...] 05/21/2024 Encounters Encounter Location Date Provider Diagnosis [facility] [address] [place] [address] 05/21/2024 Tania Gamboa Xerosis of skin L85. [...] Provider Name:Tania wheeler, 11/26/2024 02:30:00 PM, [address] [place], [address], Procedure Notes * Category Sub-Category Detail Notes Wart Treatment Procedure Verrucae were de brided to pin-point bleeding margins with sterile 15 surgical blade, silver nitrate chemocautery applied, recomm. immune-boosting meds such as zinc, recomm. follow up with topical chemosurgical agents, Pt defers any other forms of tx (38679) Debride Nail 6-10 Nail debridement Nail debridem ent performed extensively to reduce/remove overall nail length and girth, subungual debris, and necrotic tissue, by manual and electrical means with use of a nail nipper and/or dremel, to more viable healthy nail plate or bed tissue 6-10. Silver nitrate used for any petechial bleeding as necessary. Patient chooses, no pharmaceutical tx (64489) Keratoma Treatment Parring or Cutting o f Benign Hyperkeratotic Lesion(s) 46235 ( >4 Lesions) - The Benign hyperkeratotic lesions, as described above were pared, and/or cut utilizing a sterile #15 blade, tissue nippers, and/or dremel , Q8 Progress Notes * Ag ANDRADE DDOB:[birth year] (79 yo M)Acc No.[id number]:05/21/2024 Progress Note Patient:?Ag Andrade D Provider:?Tania Gamboa DPM :1945???Age:79 Y???Sex:Male Joe e:05/21/2024 Address:[address] [place] [address] Pcp:Luiz Knowles Subjective: * Chief Complaints: * [...] ?no Exercise. ?Marital status: . ?Occupation: Retired/ [employer]. * Medications:?TakingLORazepam 0.5 MG Tablet 1 tablet [...] as necessary. Patient chooses, no pharmaceutical tx (55930).?Keratoma Treatment:?Parring or Cutting of Benign Hyperkeratotic Lesion(s)?41510 ( >4 Lesions) - The Benign hyperkeratotic lesions, as described above were pared, and/or cut utilizing a sterile #15 blade, tissue nippers, and/or dremel , Q8.?Wart Treatment:?Procedure?Verrucae were debrided to pin-point bleeding margins with sterile 15 surgical blade, silver nitrate chemocautery applied, recomm. immune-boosting meds such as zinc, recomm. follow up with topical chemosurgical agents, Pt defers any other forms of tx (79835).? * Procedure Codes:?55002 DEBRI DE NAIL, 6 OR MORE, Modifiers: XS 25942 Wart Destruction, 1-14, Modifiers: XS 85945 TRIM SKIN LESIONS, OVER 4, Modifiers: XS , Q8 * Follow Up:?3 Months * Images: * Sign off status: Completed true * Provider:?Tania Gamboa, MANISHA Date:?06/2024 Generated for James talbot/Ashley/eTransmitting on:?11/18/2024 04:42 PM EDT History and Physical [...]
--- OUTSIDE RECORDS SUMMARY | 2024-11-18 16:42 | XMS_ITS | Encounter Summary ---
Author Organization [facility] Address [address] [place] [address] Care Team Providers Care Pulverizer Name Role Phone Unavailable Primary Care Provider Unavailabl e Reason for Visit * Reason Comments Medication Refill Encounter Details Date Type Department Care Team (Late st Contact Info) Description 07/09/2019 Refill [facility] [place] [address] Luiz Knowles MD Social History Tobacco Use [...]
--- OUTSIDE RECORDS SUMMARY | 2024-11-18 16:42 | XMS_ITS ---
Author Organization [facility] Address [address] [place] [address] Care Team Providers Care Electric Track Switch Maintainer Name Role Phone Luiz Knowles Primary Care Provider Tania Gamboa [phone] REASON FOR VISIT BUY 1 bag Lambs Wool Encounters Encounter Location Date Provider Diagnosis [facility] [address] [place] [address] 02/06/2024 Tania Gamboa Plan Of Treatment Next Appt Details Provider Name:Tania wheeler, 11/26/2024 02:30:00 PM, [address] [place], [address], Progress Notes * Ag ANDRADE DDOB:[birth year] (78 yo M)Acc No.[id number]:02/06/2024 Patient:?Ag Andrade :1945???Age:78 Y???Sex:Male Address:[address] , [place], [address] * true * Date:? Generated for Printi ng/Faclevelandg/eTransmitting on:?11/18/2024 04:41 PM EDT
--- OUTSIDE RECORDS SUMMARY | 2024-11-18 16:42 | XMS_ITS | Encounter Summary ---
Author Organization [facility] Address [address] [place] [address] Care Team Providers Care Machinist Helper Name Role Phone Unavailable Primary Care Provider Unavailabl e Reason for Visit * Reason Comments Medication Refill Encounter Details Date Type Department Care Team (Late st Contact Info) Description 06/06/2019 [place] [address] Luiz Knowles MD Social History Tobacco Use [...]
--- OUTSIDE RECORDS SUMMARY | 2024-11-18 16:42 | XMS_ITS | Patient Health Record ---
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 [...] M79.672 and Hammertoe of left foot M20.[address] [address] 05/21/2024 Tania Perica Xerosis of skin L85. 3 ; Atherosclerosis of artery of both lower extremities I70.203 ; Tinea unguium B35.1 ; Pain in toe of left foot M79.675 ; Pain in toe of right foot M79.674 ; Other viral warts B07.8 ; Pain in left foot M79.672 and Hammertoe of left foot M20.[address] [address] 08/27/2024 Tania Perica Xerosis of skin L85. 3 ; Atherosclerosis of artery of both lower extremities I70.203 ; Tinea unguium B35.1 ; Pain in toe of left foot M79.675 ; Pain in toe of right foot M79.674 ; Other viral warts B07.8 ; Pain in left foot M79.672 and Tinea pedis of both feet B35.3 [facility] [place] [address] [place] [address] 02/06/2024 Tania Gamboa Assessments Encounter Date Diagnosis [...] Details Provider Name:Tania wheeler, 11/26/2024 02:30:00 PM, [address] [place] [address], [phone], Insurance Providers Payer Name Payer Address Payer Phone Subscriber Number Group Number Insured Name Patient Relationship to Insured Coverage Start Date Coverage End Date Medicare National Govt Svcs Inc [address] [facility] [place] [address] [id number] Ag Garcia Self - patient is the insured [employer] Blue Shield [address] [place] [address] [id number] Ag Garcia Self - patient is the insured Medical (General) History Medical History History ICD Code Anxiety Cataracts Measles Mumps Chicken pox Joint implants/screws Transfusions Surgical History Surgery Date(Month/Year) hernia hip replacement aneurysm repair
[2024-11-18 16:43] LABS: PTH Intact Intraoperative 48.3 pg/mL (8.7-77.1)
[2024-11-18 16:56] LABS: PSA,Total (Free>4and<10) 0.63 ng/mL (0.00-4.00)
[2024-11-18 17:10] LABS: Alanine Aminotransferase 12 U/L (0-40); Albumin Level 3.6 g/dL (3.5-5.0); Alkaline Phosphatase 61 U/L (39-117); Anion Gap 12 (12-20); Aspartate Amino Transferase 23 U/L (5-37); Bilirubin Total 0.6 mg/dL (0.0-1.0); Blood Urea Nitrogen 18 mg/dL (9-16); C Reactive Protein 0.17 mg/dL (< or = 0.50); Calcium 8.7 mg/dL (8.4-10.2); Carbon Dioxide 27 mmol/L (22-29); Chloride 106 mmol/L (96-108); Estimated Glomerular Filt Rate > 60; Folate 9.1 ng/mL (> or = 4.0); Glucose Random 114 mg/dL (60-115); Magnesium 1.5 mg/dL (1.6-2.6); Phosphorus 3.1 mg/dL (2.7-4.5); Potassium 4.4 mmol/L (3.3-5.1); Sodium 141 mmol/L (135-145); Total Protein 6.9 g/dL (6.5-8.0); Vitamin B12 249 pg/mL (200-900)
[2024-11-18 17:29] LABS: Vitamin D 25-OH Total 5.6 ng/mL (>30)
== END ==
LOC: HO.CARD 14:35
PROVIDERS: PCP Internal Medicine; Referring Provider Physician Assistant Medical; Visit Provider Internal Medicine
DX: I35.0 Nonrheumatic aortic (valve) stenosis (principal); Z12.5 Encounter for screening for malignant neoplasm of prostate; Z13.1 Encounter for screening for diabetes mellitus; Z00.00 Encounter for general adult medical examination without abnormal findings
CPT/HCPCS: 36415; 80053; 82306; 82607; 82746; 83036; 83735; 83970; 84100; 84153; 84425; 84443; 85025; 86140; 93306

== ENCOUNTER → 2024-11-18 15:17 | Outpatient (BNV) | payer MEDICARE, SELFPAY | PROVIDERS: PCP Internal Medicine; Referring Provider Physician Assistant Medical; Visit Provider Internal Medicine | DX: I42.2 Other hypertrophic cardiomyopathy (principal); I35.2 Nonrheumatic aortic (valve) stenosis with insufficiency; I31.39 Other pericardial effusion (noninflammatory); I34.0 Nonrheumatic mitral (valve) insufficiency | CPT/HCPCS: 93306 ==

== ENCOUNTER → 2024-11-19 15:56 | Outpatient (REF) | payer MEDICARE, SELFPAY ==
--- NOTE | 2024-11-19 16:03 | ECG_ITS ---
Test Reason : pre op Blood Pressure : */* mmHG Vent. Rate : 73 BPM Atrial Rate : 73 BPM P-R Int : 146 ms QRS Dur : 108 ms QT Int : 402 ms P-R-T Axes : 38 -71 83 degrees QTcB Int : 442 ms Normal sinus rhythm Possible Left atrial enlargement Left anterior fascicular block Minimal voltage criteria for LVH, may be normal variant ( Rosalino product ) Anteroseptal infarct , age undetermined Abnormal ECG When compared with ECG of 16-Jan-2019 15:18, Anteroseptal infarct is now Present (but similar to older EKG) Referred By: Veena Garcia Electronically Signed By: MARIANNA MELTON
--- OUTSIDE RECORDS SUMMARY | 2024-11-19 19:14 | XMS_ITS | Encounter Summary ---
Author Organization [facility] Address [address] [place] [address] Care Team Providers Care Flue Cleaner Name Role Phone Unavailable Primary Care Provider Unavailabl e Reason for Visit * Reason Comments Medication Refill Encounter Details Date Type Department Care Team (Late st Contact Info) Description 09/11/2019 Refill [facility] [place] [address] Luiz Knowles MD Social History Tobacco Use [...]
--- OUTSIDE RECORDS SUMMARY | 2024-11-19 19:14 | XMS_ITS | Encounter Summary ---
Author Organization [facility] Address [address] [place] [address] Care Team Providers Care Job Development Specialist Name Role Phone Unavailable Primary Care Provider Unavailabl e Reason for Visit * Reason Comments Medication Refill Encounter Details Date Type Department Care Team (Late st Contact Info) Description 07/29/2019 Refill [facility] [place] [address] Luiz Knowles MD Social History Tobacco Use [...]
--- OUTSIDE RECORDS SUMMARY | 2024-11-19 19:14 | XMS_ITS | Patient Health Record ---
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 [...] M79.672 and Hammertoe of left foot M20.[address] [address] 05/21/2024 Tania Perica Xerosis of skin L85. 3 ; Atherosclerosis of artery of both lower extremities I70.203 ; Tinea unguium B35.1 ; Pain in toe of left foot M79.675 ; Pain in toe of right foot M79.674 ; Other viral warts B07.8 ; Pain in left foot M79.672 and Hammertoe of left foot M20.[address] [address] 08/27/2024 Tania Perica Xerosis of skin L85. 3 ; Atherosclerosis of artery of both lower extremities I70.203 ; Tinea unguium B35.1 ; Pain in toe of left foot M79.675 ; Pain in toe of right foot M79.674 ; Other viral warts B07.8 ; Pain in left foot M79.672 and Tinea pedis of both feet B35.3 [facility] [address] [place] [address] 02/06/2024 Tania Gamboa Assessments Encounter Date Diagnosis [...] Details Provider Name:Tania wheeler, 11/26/2024 02:30:00 PM, [address] [place] [address], [phone], Insurance Providers Payer Name Payer Address Payer Phone Subscriber Number Group Number Insured Name Patient Relationship to Insured Coverage Start Date Coverage End Date Medicare National Govt Svcs Inc [address] [place] [address] [id number] Ag Garcia Self - patient is the insured Med[employer] Blue Shield [address] [place] [address] [id number] Ag Garcia Self - patient is the insured Medical (General) History Medical History History ICD Code Anxiety Cataracts Measles Mumps Chicken pox Joint implants/screws Transfusions Surgical History Surgery Date(Month/Year) hernia hip replacement aneurysm repair
--- OUTSIDE RECORDS SUMMARY | 2024-11-19 19:14 | XMS_ITS ---
Author Organization [facility] Address [address] [place] [address] Care Team Providers Care Color Laboratory Technician Name Role Phone Luiz Knowles Primary Care Provider Tania Gamboa [phone] REASON FOR VISIT BUY 1 bag Lambs Wool Encounters Encounter Location Date Provider Diagnosis [facility] [address] [place] [address] 02/06/2024 Tania Gamboa Plan Of Treatment Next Appt Details Provider Name:Tania wheeler, 11/26/2024 02:30:00 PM, [address] [place], [address], Progress Notes * Ag ANDRADE DDOB:[birth year] (78 yo M)Acc No.[id number]:02/06/2024 Patient:?Ag Andrade :1945???Age:78 Y???Sex:Male Address:[address], [place], [address] * true * Date:? Generated for Printi ng/Faclevelandg/eTransmitting on:?11/19/2024 07:13 PM EDT
--- OUTSIDE RECORDS SUMMARY | 2024-11-19 19:14 | XMS_ITS | Encounter Summary ---
Author Organization [facility] Address [address] [place] [address] Care Team Providers Care Medical Assistant Ob Gyn Name Role Phone Unavailable Primary Care Provider Unavailabl e Reason for Visit * Reason Comments Medication Refill Encounter Details Date Type Department Care Team (Late st Contact Info) Description 09/12/2019 Refill [facility] [place] [address] Luiz Knowles MD Social History Tobacco Use [...]
--- OUTSIDE RECORDS SUMMARY | 2024-11-19 19:14 | XMS_ITS | Clinical Summary ---
Author Organization [facility] Address [address] [place] [address] Care Team Providers Care Cafeteria Supervisor Name Role Phone Unavailable Primary Care Provider [...]
--- OUTSIDE RECORDS SUMMARY | 2024-11-19 19:14 | XMS_ITS | Encounter Summary ---
Author Organization [facility] Address [address] [place] [address] Care Team Providers Care Soda Fountain Operator Name Role Phone Unavailable Primary Care Provider Unavailabl e Reason for Visit * Reason Comments Medication Refill Encounter Details Date Type Department Care Team (Late st Contact Info) Description 07/09/2019 Refill [facility] [place] [address] Luiz Knowles MD Social History Tobacco Use [...]
--- OUTSIDE RECORDS SUMMARY | 2024-11-19 19:14 | XMS_ITS | Encounter Summary ---
Author Organization [facility] Address [address] [place] [address] Care Team Providers Care Building Admin Name Role Phone Unavailable Primary Care Provider Unavailabl e Reason for Visit * Reason Comments Medication Refill Encounter Details Date Type Department Care Team (Late st Contact Info) Description 06/06/2019 [place] [address] Luiz Knowles MD Social History Tobacco Use [...]
--- OUTSIDE RECORDS SUMMARY | 2024-11-19 19:14 | XMS_ITS ---
[facility] Organization [facility] Address [address] [facility] [place] [address] Care Team Providers Care Diving Board Assembler Name Role Phone Luiz Knowles Primary Care Provider Tania Gamboa [phone] Allergies Allergen (clinical drug ingredient) Drug/Non Drug [...] 024 Encounters Encounter Location Date Provider Diagnosis [facility] [place] [address] [place] [address] 08/27/2024 Tania Gamboa Xerosis of skin L85. [...] Reason: Provider Name:Tania wheeler, 11/26/2024 02:30:00 PM, [address] [place] [address], [phone], Procedure Notes * Category Sub-Category Detail Notes Wart Treatment Procedure Verrucae were de brided to pin-point bleeding margins with sterile 15 surgical blade, silver nitrate chemocautery applied, recomm. immune-boosting meds such as zinc, recomm. follow up with topical chemosurgical agents, Pt defers any other forms of tx (47039) Debride Nail 6-10 Nail debridement Due to [...] use of a nail nipper and/or dremel-type knife setter grinder machine, to a more viable healthy nail plate [...] to maintain effectiveness in symptomatic relief - 00184 Keratoma Treatment Parring or Cutting o f [...] instrumentation by the physician of record - 20605, Q8 Progress Notes * Ag ANDRADE DDOB:[birth year] (79 yo M)Acc No.[id number]:08/27/2024 Progress Note Patient:?Ag ANDARDE D Provider:?Tania Gamboa DPM :1945???Age:79 Y???Sex:Male Joe e:08/27/2024 Address:[address] [place] [address], [id number] Pcp:Luiz Knowles Subjective: * Chief Complaints: * [...] use of a nail nipper and/or dremel-type knife setter grinder machine, to a more viable healthy nail plate [...] to maintain effectiveness in symptomatic relief - 44896.?Keratoma Treatment:?Parring or Cutting of Benign Hyperkeratotic Lesion(s)?(-57) [...] instrumentation by the physician of record - 00929, Q8.?Wart Treatment:?Procedure?Verrucae were debrided to pin-point bleeding margins with sterile 15 surgical blade, silver nitrate chemocautery applied, recomm. immune-boosting meds such as zinc, recomm. follow up with topical chemosurgical agents, Pt defers any other forms of tx (01183).? * Procedure Codes:?41612 DEBRI DE NAIL, 6 OR MORE, Modifiers: XS 46032 Wart Destruction, 1-14, Modifiers: XS 18341 TRIM SKIN LESIONS, OVER 4, Modifiers: XS [...] Gamboa DPM Date:? Generated for James talbot/Ashley/Rommel on:?11/19/2024 07:14 PM EDT History and Physical Notes * [...]
--- OUTSIDE RECORDS SUMMARY | 2024-11-19 19:15 | XMS_ITS ---
Author Organization [facility] Address [address] [place] [address] Care Team Providers Care Director Of Scientific Research Name Role Phone Luiz Knowles Primary Care Provider Tania Gamboa [phone] Allergies Allergen (clinical drug ingredient) Drug/Non Drug [...] 05/21/2024 Encounters Encounter Location Date Provider Diagnosis [facility] [place] [address] [place] [address] 05/21/2024 Tania Gamboa Xerosis of skin L85. [...] Provider Name:Tania wheeler, 11/26/2024 02:30:00 PM, [address] [place], [address], Procedure Notes * Category Sub-Category Detail Notes Wart Treatment Procedure Verrucae were de brided to pin-point bleeding margins with sterile 15 surgical blade, silver nitrate chemocautery applied, recomm. immune-boosting meds such as zinc, recomm. follow up with topical chemosurgical agents, Pt defers any other forms of tx (26400) Debride Nail 6-10 Nail debridement Nail debridem ent performed extensively to reduce/remove overall nail length and girth, subungual debris, and necrotic tissue, by manual and electrical means with use of a nail nipper and/or dremel, to more viable healthy nail plate or bed tissue 6-10. Silver nitrate used for any petechial bleeding as necessary. Patient chooses, no pharmaceutical tx (47990) Keratoma Treatment Parring or Cutting o f Benign Hyperkeratotic Lesion(s) 99713 ( >4 Lesions) - The Benign hyperkeratotic lesions, as described above were pared, and/or cut utilizing a sterile #15 blade, tissue nippers, and/or dremel , Q8 Progress Notes * Ag ANDRADE DDOB:[birth year] (79 yo M)Acc No.[id number]:05/21/2024 Progress Note Patient:?Ag Andrade D Provider:?Tania Gamboa DPM :1945???Age:79 Y???Sex:Male Joe e:05/21/2024 Address:[address] [place] [address], [facility] Pcp:Luiz Knowles Subjective: * Chief Complaints: * [...] ?no Exercise. ?Marital status: . ?Occupation: Retired/ [employer]. * Medications:?TakingLORazepam 0.5 MG Tablet 1 tablet [...] as necessary. Patient chooses, no pharmaceutical tx (92560).?Keratoma Treatment:?Parring or Cutting of Benign Hyperkeratotic Lesion(s)?25032 ( >4 Lesions) - The Benign hyperkeratotic lesions, as described above were pared, and/or cut utilizing a sterile #15 blade, tissue nippers, and/or dremel , Q8.?Wart Treatment:?Procedure?Verrucae were debrided to pin-point bleeding margins with sterile 15 surgical blade, silver nitrate chemocautery applied, recomm. immune-boosting meds such as zinc, recomm. follow up with topical chemosurgical agents, Pt defers any other forms of tx (66958).? * Procedure Codes:?76310 DEBRI DE NAIL, 6 OR MORE, Modifiers: XS 72044 Wart Destruction, 1-14, Modifiers: XS 72961 TRIM SKIN LESIONS, OVER 4, Modifiers: XS , Q8 * Follow Up:?3 Months * Images: * Sign off status: Completed true * Provider:?Tania Gamboa, MANISHA Date:?06/2024 Generated for James talbot/Ashley/eTransmitting on:?11/19/2024 07:14 PM EDT History and Physical [...]
== END ==
LOC: HO.CARD 15:56
PROVIDERS: PCP Internal Medicine; Visit Provider Physician Assistant Medical
DX: Z01.818 Encounter for other preprocedural examination (principal); H26.9 Unspecified cataract
CPT/HCPCS: 93005

== ENCOUNTER → 2024-11-19 16:03 | Outpatient (BNV) | payer MEDICARE, SELFPAY | PROVIDERS: PCP Internal Medicine; Visit Provider Internal Medicine | DX: I44.4 Left anterior fascicular block (principal); I21.09 ST elevation (STEMI) myocardial infarction involving other coronary artery of anterior wall | CPT/HCPCS: 93010 ==

== ENCOUNTER 2024-12-02 09:16 | Day surgery (SDC) | payer MEDICARE, SELFPAY ==
[2024-11-25 07:45] VITALS: BMI 19.8
[2024-12-02] MEDS: Tetracaine HCl/PF 0.5% Oph Sol 4 ML DROPS 1 DROP EYE-LEFT (09:49)
[2024-12-02] MEDS: Cyclopentolate 1 % Ophth Sol 2 ML DRPBTL 1 DROP EYE-LEFT ×3 (09:50→10:06)
[2024-12-02] MEDS: Tropicamide 1 % Ophth Sol 3 ML BTL 1 DROP EYE-LEFT ×3 (09:52→10:08)
[2024-12-02] MEDS: Ketorolac Tromethamine 0.5% Op 5 ML DROPS 1 DROP EYE-LEFT ×3 (09:54→10:10)
[2024-12-02] MEDS: Phenylephrine HCL 2.5% Oph SoL 2 ML BOTTLE 1 DROP EYE-LEFT ×3 (09:56→10:12)
[2024-12-02 10:00] VITALS: BP 194/96; PULSE 78; RESP 16; TEMP 36.8; O2SAT 98; BMI 19.6
[2024-12-02] MEDS: Lactated Ringers 500 ML 50 ML IV (10:14)
--- NOTE | 2024-12-02 10:26 | P.CONAN_ITS ---
Documented by User: Lakeisha Reagan NP 11/28/24 13:47 HPI - Anesthesia Eval Consult details Narrative: 79yo M for Left Cataract Extraction IOL Insertion No previous cataract on record Severe . WANDER 0.87. Follows with [facility] Reviewed case with Dr Malloy [facility] Active Problems Active Problems: All Active Problems Magnesium deficiency (Acute) Vitamin D deficiency (Acute) Cataract (Acute) Pre-operative clearance (Acute) Panic disorder (Acute) Peripheral vascular disease (Acute) Onychomycosis (Acute) Bilateral carotid artery stenosis (Acute) Palpitations (Acute) Atherosclerotic cardiovascular disease (Acute) Essential hypertension (Acute) Abdominal aortic aneurysm without rupture (Acute) Ascending aorta dilatation (Acute) Non-rheumatic aortic stenosis (Acute) Hypothyroid (Acute) COPD (chronic obstructive pulmonary disease) (Acute) Hypercholesteremia (Acute) 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) Numbness and tingling in both hands (Acute) Essential (primary) hypertension (Acute) GERD (gastroesophageal reflux disease) (Acute) BPH loc w/o ur obs/LUTS (Acute) Generalized anxiety disorder (Acute) Fracture of wrist (Acute) Past Medical History Medical History (Updated 11/21/24 @ 10:49 by Veena Garcia PA-C) Magnesium deficiency Vitamin D deficiency Cataract Pre-operative clearance Peripheral vascular disease Onychomycosis Atherosclerotic cardiovascular disease Ex-smoker Essential hypertension Abdominal aortic aneurysm without rupture Ascending aorta dilatation Non-rheumatic aortic stenosis Erectile dysfunction Anxiety and depression Benzodiazepine dependence Hip osteoarthritis Hypothyroid COPD (chronic obstructive pulmonary disease) Thoracic aortic aneurysm Hypercholesteremia Insomnia GERD (gastroesophageal reflux disease) BPH loc w/o ur obs/LUTS Family History Family History Mother No problems noted. Father No problems noted. Surgical History Surgical History (Updated 12/02/24 @ 09:47 by Carol Beard RN) History of aortic aneurysm repair History of hip replacement History of hernia surgery Social History Social History Housing: House Alcohol intake: never Patient Tobacco Use Status: Former Tobacco user e-Cigarette/Vaping Use: Never Used Second Hand Smoke Exposure: No Use of substances other than those prescribed or required for medical reasons: No Have you been hit, kicked, punched, or otherwise hurt by someone within the past year? If so, by whom?: No Are you DNR?: No Advance Directives: No Advance Directives Information Provided: Yes Advance Directives on File: No Recently lost weight without trying: No Nutrition Risks: No Nutritional Risk service: No Current occupational status: retired Cognitive needs: Yes (cane) Hearing needs: Yes Vision needs: Yes (glasses) Meds Allergies Allergy/AdvReac Type Severity Reaction Status Date / Time penicillin G [Penicillin G] Allergy Severe ANAPHYLAXIS Verified 12/02/24 09:47 penicillamine Allergy Unknown anaphylaxis Verified 12/02/24 09:47 penicillin V Allergy Unknown anphylaxis Verified 12/02/24 09:47 Home Medications ?Medication ?Instructions ?Recorded ?Confirmed ?Last Taken ?Type albuterol sulfate 90 mcg/actuation 2 puff PO Q6H PRN Shortness Of 11/25/24 12/02/24 Unknown History aerosol inhaler Breath Or Wheezing Exam Height,Weight and Vital Signs: Height 5 ft 9 in Weight 60.781 kg Narrative Narrative: ECHO 11/2024 Conclusions: - The left ventricular systolic function is normal. The visually estimated ejection fraction is between 65-70%. 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 - The basal inferior and basal inferolateral segments are hypokinetic. - There is moderate to severe aortic valve stenosis. - There is moderate mitral annular calcification. - There is mild dilatation of the ascending aorta measuring 4.40 cm and mild dilatation of the aortic arch measuring 4.40 cm. - There is a moderate loculated pericardial effusion overlying the right ventricle. Assessment and Plan Assessment Anesthesia Assessment: Chart Reviewed Documented by User: Lili Aj DO 12/02/24 10:27 [facility] Past Medical History Medical History (Updated 11/21/24 @ 10:49 by Veena Garcia PA-C) Magnesium deficiency Vitamin D deficiency Cataract Pre-operative clearance Peripheral vascular disease Onychomycosis Atherosclerotic cardiovascular disease Ex-smoker Essential hypertension Abdominal aortic aneurysm without rupture Ascending aorta dilatation Non-rheumatic aortic stenosis Erectile dysfunction Anxiety and depression Benzodiazepine dependence Hip osteoarthritis Hypothyroid COPD (chronic obstructive pulmonary disease) Thoracic aortic aneurysm Hypercholesteremia Insomnia GERD (gastroesophageal reflux disease) BPH loc w/o ur obs/LUTS Family History Family History Mother No problems noted. Father No problems noted. Family history of problems with anesthesia: No Surgical History Surgical History (Updated 12/02/24 @ 09:47 by Carol Beard RN) History of aortic aneurysm repair History of hip replacement History of hernia surgery History of Problems with Anesthesia: No Social History Social History Housing: House Alcohol intake: never Patient Tobacco Use Status: Former Tobacco user e-Cigarette/Vaping Use: Never Used Second Hand Smoke Exposure: No Use of substances other than those prescribed or required for medical reasons: No Have you been hit, kicked, punched, or otherwise hurt by someone within the past year? If so, by whom?: No Are you DNR?: No Advance Directives: No Advance Directives Information Provided: Yes Advance Directives on File: No Recently lost weight without trying: No Nutrition Risks: No Nutritional Risk service: No Current occupational status: retired Cognitive needs: Yes (cane) Hearing needs: Yes Vision needs: Yes (glasses) Meds Allergies Allergy/AdvReac Type Severity Reaction Status Date / Time penicillin G [Penicillin G] Allergy Severe ANAPHYLAXIS Verified 12/02/24 09:47 penicillamine Allergy Unknown anaphylaxis Verified 12/02/24 09:47 penicillin V Allergy Unknown anphylaxis Verified 12/02/24 09:47 Home Medications ?Medication ?Instructions ?Recorded ?Confirmed ?Last Taken ?Type albuterol sulfate 90 mcg/actuation 2 puff PO Q6H PRN Shortness Of 11/25/24 12/02/24 Unknown History aerosol inhaler Breath Or Wheezing Exam Exam Date and Time: 12/02/24 1025 Height,Weight and Vital Signs: Height 5 ft 9 in Weight 60.781 kg Vital Signs Temperature 98.2 F 12/02/24 10:00 Pulse Rate 78 12/02/24 10:00 Respiratory Rate 16 12/02/24 10:00 Blood Pressure 194/96 H 12/02/24 10:00 Pulse Oximetry 98 12/02/24 10:00 Oxygen Delivery Method Room Air 12/02/24 10:00 Temperature 98.2 F 12/02/24 10:00 Pulse Rate 78 12/02/24 10:00 Respiratory Rate 16 12/02/24 10:00 Blood Pressure 194/96 H 12/02/24 10:00 Pulse Oximetry 98 12/02/24 10:00 Oxygen Delivery Method Room Air 12/02/24 10:00 Airway Mallampati Class: I TM Dist: >3cm Neck ROM: Full Loose/Missing/Broken Teeth: Yes (edentulous) Heart: S1S2 Lungs: CTAB Assessment and Plan Assessment Anesthesia Assessment: Anesthesia Plan Discussed and Chart Reviewed Final Anesthetic Review Family History of Problems with Anesthesia: No History of Problems with Anesthesia: No NPO: Yes ASA Class: IV Final Preanesthetic Review: No Changes in Pt Med Stat, Meds/Allgs Chart Reviewed, Consent Obtained/Reviewed and Anes Risks/Benef Reviewed Patient Risk: High Procedure Risk: Low Anesthetic Plan Anesthetic Plan: MAC: and Agree w/ Assess. and Plan Disposition: Standard PACU
--- NOTE | 2024-12-02 10:36 | MHC.SHP ---
Pre-Procedural Eval Section A - 24 Hr Update-Section A only Date of Service: 12/02/24 The patient is an INPATIENT: No Changes since office visit: No Cold of Flu in the past 2 weeks, No New Medical Problems, No Changes in Medication and No Patient answered all questions The patient has been examined within 24 hours of the surgical procedure. The History & Physical has been completed within 30 days and I have reviewed it.: Yes Section B - Complete if H&P > 30 days Chief Complaint: Age-related nuclear cataract, left eye Allergies: Allergies Allergy/AdvReac Type Severity Reaction Status Date / Time penicillin G [Penicillin G] Allergy Severe ANAPHYLAXIS Verified 12/02/24 09:47 penicillamine Allergy Unknown anaphylaxis Verified 12/02/24 09:47 penicillin V Allergy Unknown anphylaxis Verified 12/02/24 09:47 Plan Diagnosis/Plan: Unchanged I have reviewed the history and physical and performed a pertinent physical examination on my patient. No changes have occurred unless specified. Time Spent With Patient Time: Total time managing care of this patient today ____ minutes.
--- NOTE | 2024-12-02 10:36 | HO.PNOPHT ---
Ophthalmology Procedure Procedure Date of Service: 12/02/24 Ophthalmology Viscoelastic: Healon Duet Dual Pack Pro Ophthalmology Lenses: IOL Acrysof MP - MA60AC (17.5) Procedure Notes: PREOPERATIVE DIAGNOSIS: Decreased visual acuity left eye secondary to cataract POSTOPERATIVE DIAGNOSIS: Same PROCEDURE: Left cataract extraction with intraocular lens insertion SURGEON: Raheel Ball M.D. ANESTHESIA: Topical/MAC ESTIMATED BLOOD LOSS: None COMPLICATIONS: None After obtaining informed consent, the patient was brought to the operation room suite and placed in the supine position. After adequate sedation per anesthesia, topical drops of Tetracaine were given to the left eye. The eye was then prepped and draped in the usual sterile fashion. The operating room microscope was then positioned over the operative eye and a lid speculum placed. A paracentesis was created. Viscoelastic was then instilled into the anterior chamber. A three plane incision was then created temporally, utilizing a 2.85 mm keratome. Capsulotomy forceps were then utilized to create a circular tear capsulotomy. Hydrodissection and hydrodelineation were carried out until adequate mobilization of the nucleus occurred. Phacoemulsification was then utilized to remove the dense central nucleus followed by removal of the cortical material utilizing the automated aspiration irrigation unit. Viscoat elastic was instilled into the posterior capsular bag followed by placement of a posterior chamber intraocular lens without difficulty. The residual Viscoat elastic was then removed utilizing the automated IA machine. The wound was check and found to be watertight. The patient tolerated the procedure well and the lid speculum was removed. Intracameral injection of Vigamox 0.1 mL followed by a subtenon injection of Kenalog-40 0.2 mL were administered. The patient will be seen in the a.m.
[2024-12-02 11:04] VITALS: BP 176/101; PULSE 71; RESP 18; TEMP 36.6; O2SAT 98
== END 2024-12-02 11:22 | disposition home or self-care (01) ==
PROVIDERS: PCP Internal Medicine; Visit Provider Ophthalmology
PROC: (CPT 66985; principal; 2024-12-02 11:30)
DX: H25.12 Age-related nuclear cataract, left eye (principal); H54.7 Unspecified visual loss; H18.413 Arcus senilis, bilateral; Z96.1 Presence of intraocular lens; J44.9 Chronic obstructive pulmonary disease, unspecified; I71.40 Abdominal aortic aneurysm, without rupture, unspecified; I25.10 Atherosclerotic heart disease of native coronary artery without angina pectoris; I65.23 Occlusion and stenosis of bilateral carotid arteries; I35.0 Nonrheumatic aortic (valve) stenosis; I10 Essential (primary) hypertension; E78.00 Pure hypercholesterolemia, unspecified; Z87.891 Personal history of nicotine dependence; I73.9 Peripheral vascular disease, unspecified; H91.90 Unspecified hearing loss, unspecified ear; F41.1 Generalized anxiety disorder; Z96.649 Presence of unspecified artificial hip joint; Z79.82 Long term (current) use of aspirin; Z79.899 Other long term (current) drug therapy; Z88.0 Allergy status to penicillin; E03.9 Hypothyroidism, unspecified
CPT/HCPCS: 66984; J1920; J2003; J2250; J3010; V2630

== ENCOUNTER 2024-12-05 14:18 | Outpatient (AMB) | payer MEDICARE, SELFPAY ==
--- NOTE | 2024-12-05 14:28 | MHC.OFFVIS ---
Vital Signs 12/05/24 14:30 Height 5 ft 9 in Weight 132 lb 11.492 oz BMI 19.6 BP 140/80 H Blood Pressure Location Lt brachial Position Sitting Pulse 88 Pulse Source Pulse Oximeter Intake Visit Reasons: 6 mth f/up echo Drafting Engineer Required: No Accompanied by: Spouse Allergies penicillin G [Penicillin G] Allergy (Severe, Verified 12/02/24 09:47) ANAPHYLAXIS penicillamine Allergy (Unknown, Verified 12/02/24 09:47) anaphylaxis penicillin V Allergy (Unknown, Verified 12/02/24 09:47) anphylaxis Medication List - Last Reconciled 12/05/24 by Haim Wilson MD albuterol sulfate 90 mcg/actuation 2 puffs PO Q6H PRN atorvastatin (Lipitor) 5 mg (1/2 x 10 mg) PO BEDTIME 30 days budesonide-formoterol 160-4.5 mcg/actuation (Symbicort) 2 puffs PO BID lisinopril 40 mg (2 x 20 mg) PO DAILY 90 days lorazepam 0.5 mg PO BID PRN 30 days metoprolol succinate ER 50 mg PO DAILY omeprazole 20 mg PO DAILY tamsulosin 0.8 mg (2 x 0.4 mg) PO DAILY zolpidem 5 mg PO BEDTIME HPI Comments Details: Ag returns for follow-up regarding coronary artery disease and aortic stenosis. From the cardiac standpoint, he states he is just about the same as before. He does not have any anginal-type symptoms. He does get short of breath occasionally, but he states he has always been that way and blames it on COPD. Otherwise, feels well. Frailty from age. Had cataract surgery few days before. [facility] Medical History (Updated 11/21/24 @ 10:49 by Veena Garcia PA-C) Magnesium deficiency Vitamin D deficiency Cataract Pre-operative clearance Peripheral vascular disease Onychomycosis Atherosclerotic cardiovascular disease Ex-smoker Essential hypertension Abdominal aortic aneurysm without rupture Ascending aorta dilatation Non-rheumatic aortic stenosis Erectile dysfunction Anxiety and depression Benzodiazepine dependence Hip osteoarthritis Hypothyroid COPD (chronic obstructive pulmonary disease) Thoracic aortic aneurysm Hypercholesteremia Insomnia GERD (gastroesophageal reflux disease) BPH loc w/o ur obs/LUTS Surgical History History of aortic aneurysm repair History of hip replacement History of hernia surgery Family History Mother No problems noted. Father No problems noted. Social History Housing: House Alcohol intake: never Patient Tobacco Use Status: Former Tobacco user e-Cigarette/Vaping Use: Never Used Second Hand Smoke Exposure: No service: No Current occupational status: retired Cognitive needs: Yes (cane) Hearing needs: Yes Vision needs: Yes (glasses) Review of Systems Const Denies chills, Denies fatigue, Denies fever(s), Denies frequent falls, Denies weakness, Denies weight gain and Denies weight loss ENT Denies dizziness Card Denies chest pain, Denies leg edema, Denies lightheadedness, Denies palpitations, Denies dyspnea and Denies dyspnea on exertion Resp Denies cough, Denies dyspnea and Denies dyspnea on exertion GI Denies hematochezia Musc Denies abnormal gait, Denies muscle weakness, Denies numbness, Denies radiating pain into limb and Denies tingling Neuro Denies abnormal gait, Denies dizziness, Denies frequent falls, Denies numbness, Denies tingling and Denies weakness Endo Denies fatigue and Denies palpitations Physical Exam Vital Signs: Last Vital Signs Pulse 88 12/05/24 14:30 BP 140/80 H 12/05/24 14:30 BMI result Body Mass Index 19.6 Const General: comfortable and no acute distress Orientation/consciousness: patient oriented x3 HEENT Other: Unremarkable Head: Yes normal to inspection Neck Neck: Yes normal visual inspection Chest Chest palpation & inspection: normal inspection of the chest Resp Auscultation: clear to auscultation bilaterally Cardio Palpation: normal PMI Heart sounds: S1 normal heart sound present, S2 normal heart sound present, no gallops, Murmur heart sound present systolic II/ and at the right sternal border and no rubs GI Palpation (GI): Soft to palpation Back/Spine/Pelvis Other: unremarkable Skin General skin exam: no rashes or lesions noted Neuro General: patient oriented x3 Extrem General: Yes normal to inspection Psych Mental Status: mental status grossly normal Assessment & Plan Assessment & Plan (1) Non-rheumatic aortic stenosis: Code(s): I35.0 - Nonrheumatic aortic (valve) stenosis Category: Medical Plan: In the recent echocardiogram, mean gradient across aortic valve was 33 mm Hg with a peak of 60 mm Hg. Calculated valve area of 0.87 cm2 and dimensionless index of 0.23. Estimated LVEF 65-70%. Severe septal hypertrophy. Findings discussed with patient. He has no overt symptoms. We discussed about TAVR referral now versus closely monitor him. After long discussion, we decided that we will monitor for any clinical symptoms and he will report to us if any. Avoid strenuous physical exertion. Recheck echocardiogram in about 4 months and we will see him at that time. (2) Atherosclerotic cardiovascular disease: Code(s): I25.10 - Atherosclerotic heart disease of [place] coronary artery without angina pectoris Category: Medical Plan: Cardiac catheterization in the past had shown a chronically occluded RCA with collaterals from left. Mild to moderate disease in the LAD and circumflex. He was on statins in the past but had various side effects. Most recently, seems to be on a small dose. Lipids are well controlled. (3) Abdominal aortic aneurysm without rupture: Code(s): I71.4 - Abdominal aortic aneurysm, without rupture Category: Medical Plan: Status post endovascular repair. Follow-up [facility] vascular surgery. (4) Essential hypertension: Code(s): I10 - Essential (primary) hypertension Category: Medical Plan: Borderline high blood pressure today. No changes made. Plan Discussed with family. Orders: Orders CA echo transthoracic complete 4 Months I35.0 - Nonrheumatic aortic (valve) stenosis Coding Level of Care Code Est Pt Level 4 (14195) Complex EM visit Add On G2211 Diagnoses Non-rheumatic aortic stenosis I35.0 Atherosclerotic cardiovascular disease I25.10 Abdominal aortic aneurysm without rupture I71.4 Essential hypertension I10
[2024-12-05 14:30] VITALS: BP 140/80; PULSE 88; BMI 19.6
--- OUTSIDE RECORDS SUMMARY | 2024-12-05 17:59 | XMS_ITS | Encounter Summary ---
Author Organization [facility] Address [address] [place] [id number] Care Team Providers Care Electrician Second Name Role Phone Unavailable Primary Care Provider Unavailabl e Reason for Visit * Reason Comments Medication Refill Encounter Details Date Type Department Care Team (Late st Contact Info) Description 07/09/2019 Refill [facility] [place] [address] Luiz Knowles MD Social History Tobacco Use [...]
--- OUTSIDE RECORDS SUMMARY | 2024-12-05 17:59 | XMS_ITS | Clinical Summary ---
Author Organization [facility] Address [address] [place] [address] Care Team Providers Care Computer Graphic Designer Name Role Phone Unavailable Primary Care Provider [...]
--- OUTSIDE RECORDS SUMMARY | 2024-12-05 17:59 | XMS_ITS | Encounter Summary ---
Author Organization [facility] Address [address] [place] [id number] Care Team Providers Care Screw Supervisor Name Role Phone Unavailable Primary Care Provider Unavailabl e Reason for Visit * Reason Comments Medication Refill Encounter Details Date Type Department Care Team (Late st Contact Info) Description 09/12/2019 Refill [facility] [place] [address] Luiz Knowles MD Social History Tobacco Use [...]
--- OUTSIDE RECORDS SUMMARY | 2024-12-05 17:59 | XMS_ITS ---
Author Organization [facility] Address [address] [facility] [place] [address] Care Team Providers Care Steam Conditioner Operator Name Role Phone Luiz Knowles Primary Care Provider [phone] Tania Gamboa [phone] Allergies Allergen (clinical drug ingredient) Drug/Non Drug [...] 024 Encounters Encounter Location Date Provider Diagnosis [facility] [place] [address] [place] [address] 08/27/2024 Tania Gamboa Xerosis of skin L85. [...] Follow Up: 3 Months, Reason: Provider Name:Tania Jurado Gabe summer, 02/25/2025 03:30:00 PM, [address] [place] [address], [address], Procedure Notes * Category Sub-Category Detail Notes Wart Treatment Procedure Verrucae were de brided to pin-point bleeding margins with sterile 15 surgical blade, silver nitrate chemocautery applied, recomm. immune-boosting meds such as zinc, recomm. follow up with topical chemosurgical agents, Pt defers any other forms of tx (62357) Debride Nail 6-10 Nail debridement Due to [...] use of a nail nipper and/or dremel-type profile grinder, to a more viable healthy nail [...] to maintain effectiveness in symptomatic relief - 09527 Keratoma Treatment Parring or Cutting o f [...] instrumentation by the physician of record - 75096, Q8 Progress Notes * Ag ANDRADE DDOB:[birth year] (79 yo M)Acc No.[id number]:08/27/2024 Progress Note Patient:?Ag ANDRADE D Provider:?Tania Gamboa DPM :1945???Age:79 Y???Sex:Male Joe e:08/27/2024 Address:[address] [place] [address], [place], [facility] Pcp:Luiz Knowles Subjective: * Chief Complaints: * [...] use of a nail nipper and/or dremel-type profile grinder, to a more viable healthy nail [...] to maintain effectiveness in symptomatic relief - 72669.?Keratoma Treatment:?Parring or Cutting of Benign Hyperkeratotic Lesion(s)?(-57) [...] instrumentation by the physician of record - 46056, Q8.?Wart Treatment:?Procedure?Verrucae were debrided to pin-point bleeding margins with sterile 15 surgical blade, silver nitrate chemocautery applied, recomm. immune-boosting meds such as zinc, recomm. follow up with topical chemosurgical agents, Pt defers any other forms of tx (48248).? * Procedure Codes:?85645 DEBRI DE NAIL, 6 OR MORE, Modifiers: XS 57864 Wart Destruction, 1-14, Modifiers: XS 50457 TRIM SKIN LESIONS, OVER 4, Modifiers: XS [...] Gamboa DPM Date:? Generated for James talbot/Ashley/Rommel on:?12/05/2024 05:59 PM EDT History and Physical Notes * [...]
--- OUTSIDE RECORDS SUMMARY | 2024-12-05 17:59 | XMS_ITS | Encounter Summary ---
Author Organization [facility] Address [address] [place] [address] Care Team Providers Care Manager Analytical Name Role Phone Unavailable Primary Care Provider Unavailabl e Reason for Visit * Reason Comments Medication Refill Encounter Details Date Type Department Care Team (Late st Contact Info) Description 09/11/2019 Refill [facility] [place] [address] Luiz Knowles MD Social History Tobacco Use [...]
--- OUTSIDE RECORDS SUMMARY | 2024-12-05 17:59 | XMS_ITS | Encounter Summary ---
Author Organization [facility] Address [address] [place] [address] Care Team Providers Care Dock Supervisor Name Role Phone Unavailable Primary Care Provider Unavailabl e Reason for Visit * Reason Comments Medication Refill Encounter Details Date Type Department Care Team (Late st Contact Info) Description 07/29/2019 Refill [facility] [place] [address] Luiz Knowles MD Social History Tobacco Use [...]
--- OUTSIDE RECORDS SUMMARY | 2024-12-05 17:59 | XMS_ITS | Patient Health Record ---
[facility] [place] Address [address] [facility] [place] [address] Care Team Providers Care Cut Off Saw Operator Pipe Blanks Name Role Phone Luiz Knowles Primary Care Provider [phone] Tania Gamboa Unavailable [phone] Allergies Allergen (clinical drug ingredient) Drug/Non Drug [...] Twice a day for 30 days Not-Taking Flomax 0.4 MG 1 capsule Orally Onc e a day for 30 day(s) Active Metoprolol Succinate 50 MG 1 capsule Orally Once a day for 30 day(s) Active Zolpidem Tartrate 5 MG 1 tablet at bedti me Orally Once a day Active Omeprazole 20 MG 1 capsule 30 minutes before morning meal Orally Once a day for 30 day(s) Active Lisinopril 20 MG as directed Orally Active Symbicort Active Ciclopirox Olamine 0.77 % 1 application Externally Twice a day to skin of feet including between the toes for 30 days Active Ammonium Lactate 12 % 1 application Exte rnally Twice a day for 30 days Active Ventolin HFA Not-Clifton ing Ammonium Lactate 12 % 1 application Exte rnally to affected areas of dry skin to feet except for between the toes Twice a day for 30 days Active LORazepam 0.5 MG 2 tablets Orally Onc e a day Active Social History Tobacco Use: Social History Observation Description Date Details (start date - stop date) Never Smoker NA - NA Alcohol Screen Question Answer Notes Did you have a drink containing alcohol in the p ast year? No Points 0 Interpretation Negative Tobacco use other than smoking: Question Answer Notes Are you an other tobacco user? No Tobacco Control (Standard) Question Answer Notes Tobacco use: Nonsmoker Additional Findings: Tobacco non-user Current no nsmoker Problems Problem Type SNOMED Code ICD Code Onset Dates Problem Status W/U Status Risk Notes Problem 618113715 Hammertoe of lef t foot (M20.42) Active confirmed Problem 57739341375141332 Atherosclerosi s of artery of both lower extremities (I70.203) Active confirmed Vital Signs Blood pressure diastolic 72 mm Hg 11/26/2024 Height 5 ft 9 in in 11/26/2024 Blood pressure systolic 134 mm Hg 11/26/2024 Weight 134 lbs 11/26/2024 BMI 19.79 kg/m2 11/26/2024 Encounters Encounter Location Date Provider Diagnosis [address] [address] 02/06/2024 Tania Perica Xerosis of skin L85. [...] M79.672 and Hammertoe of left foot M20.[address] [address] 05/21/2024 Tania Perica Xerosis of skin L85. 3 ; Atherosclerosis of artery of both lower extremities I70.203 ; Tinea unguium B35.1 ; Pain in toe of left foot M79.675 ; Pain in toe of right foot M79.674 ; Other viral warts B07.8 ; Pain in left foot M79.672 and Hammertoe of left foot M20.[address] [address] 08/27/2024 Tania Perica Xerosis of skin L85. 3 ; Atherosclerosis of artery of both lower extremities I70.203 ; Tinea unguium B35.1 ; Pain in toe of left foot M79.675 ; Pain in toe of right foot M79.674 ; Other viral warts B07.8 ; Pain in left foot M79.672 and Tinea pedis of both feet B35.[address] [address] 11/26/2024 Tania Gamboa Xerosis of skin L85. 3 ; Atherosclerosis of artery of both lower extremities I70.203 ; Tinea unguium B35.1 ; Pain in toe of left foot M79.675 and Pain in toe of right foot M79.[address] [address] 02/06/2024 Tania Gamboa Assessments Encounter Date Diagnosis [...] of both lower extremities (ICD-10 - I70.203) 11/26/2024 Xerosis of skin (ICD-10 - L85.3) 11/26/2024 Atherosclerosis of artery of both lower extremities (ICD-10 - I70.203) 11/26/2024 Tinea unguium (ICD-10 - B35.1) 08/27/2024 Tinea unguium (ICD-10 - B35.1) 05/21/2024 Tinea unguium (ICD-10 - B35.1) 02/06/2024 Tinea unguium (ICD-10 - B35.1) 02/06/2024 Pain in toe of left foot (ICD-10 - M79.675) 05/21/2024 Pain in toe of left foot (ICD-10 - M79.675) 08/27/2024 Pain in toe of left foot (ICD-10 - M79.675) 11/26/2024 Pain in toe of left foot (ICD-10 - M79.675) 11/26/2024 Pain in toe of right foot (ICD-10 - M79.674) 08/27/2024 Pain in toe of right foot [...] Treatment Next Appt Details Provider Name:Tania wheeler, 02/25/2025 03:30:00 PM, [address] [place], [address], Insurance Providers Payer Name Payer Address Payer Phone Subscriber Number Group Number Insured Name Patient Relationship to Insured Coverage Start Date Coverage End Date Medicare [facility] [employer] [address] [place] [address] [phone] [id number] Ag Garcia Self - patient is the insured [facility] [address] [place] [address] [phone] [id number] Ag Garcia Self - patient is the insured Medical (General) History Medical History History ICD Code Anxiety Cataracts Measles Mumps Chicken pox Joint implants/screws Transfusions Surgical History Surgery Date(Month/Year) hernia hip replacement aneurysm repair
--- OUTSIDE RECORDS SUMMARY | 2024-12-05 18:00 | XMS_ITS | Encounter Summary ---
Author Organization [facility] Address [address] [place] [address] Care Team Providers Care Home Energy Inspector Name Role Phone Unavailable Primary Care Provider Unavailabl e Reason for Visit * Reason Comments Medication Refill Encounter Details Date Type Department Care Team (Late st Contact Info) Description 06/06/2019 [place] [address] Luiz Knowles MD Social History Tobacco Use [...]
--- OUTSIDE RECORDS SUMMARY | 2024-12-05 18:00 | XMS_ITS ---
Author [facility] Address [address] [facility] [place] [address] Care Team Providers Care Knitter Wire Mesh Name Role Phone Luiz Knowles Primary Care Provider Tania Gamboa [phone] Allergies Allergen (clinical drug ingredient) Drug/Non Drug Allergy documented on EMR Reaction Allergy Type Onset Date Status Substance with penicillin structure and antibacterial mechanism of action (substance) Penicillins anaphylaxis Drug Allergy Active REASON FOR VISIT At Risk Footcare, Painful Nail(s) aggrevated by shoes and causing difficulty standing/walking., Skin problem(s) Medications Medication SIG (Take, Route, Frequency, Duration) Notes Start Date End Date Status Ammonium Lactate 12 % 1 application to affected area Externally to feet Twice a day for 30 days Not-Taking Ciclopirox Olamine 0.77 % 1 application Externally [...] Twice a day for 30 days Active Flomax 0.4 MG 1 capsule Orally Onc e a day for 30 day(s) Active Zolpidem Tartrate 5 MG 1 tablet at bedti me Orally Once a day Active Omeprazole 20 MG 1 capsule 30 minutes before morning meal Orally Once a day for 30 day(s) Active Lisinopril 20 MG as directed Orally Active Symbicort Active Metoprolol Succinate 50 MG 1 capsule Orally Once a day for 30 day(s) Active LORazepam 0.5 MG 2 tablets Orally [...] Additional Findings: Tobacco non-user Current no nsmoker Vital Signs Height 5 ft 9 in in 11/26/2024 Weight 134 lbs 11/26/2024 BMI 19.79 kg/m2 11/26/2024 Blood pressure systolic 134 mm Hg 11/27/19 25 Blood pressure diastolic 72 mm Hg 025 Encounters Encounter Location Date Provider Diagnosis [facility] [place] [address] [place] [address] 11/26/2024 Tania Gamboa Xerosis of skin L85. 3 ; Atherosclerosis of artery of both lower extremities I70.203 ; Tinea unguium B35.1 ; Pain in toe of left foot M79.675 and Pain in toe of right foot M79.674 Assessments Encounter Date Diagnosis (ICD Code) Assessment Notes Treatment Notes Treatment Clinical Notes Section Notes 11/26/2024 Xerosis of skin (ICD-10 - L85.3) 11/26/2024 Atherosclerosis of artery of both lower extremities (ICD-10 - I70.203) 11/26/2024 Tinea unguium (ICD-10 - B35.1) 11/26/2024 Pain in toe of left foot (ICD-10 - M79.675) 11/26/2024 Pain in toe of right foot (ICD-10 - M79.674) Plan Of Treatment Next Appt Details Follow Up: 3 Months, Reason: Provider Name:Tania wheeler, 02/25/2025 03:30:00 PM, [address] [place], [address], Procedure Notes * Category Sub-Category Detail Notes Debride Nail 6-10 Nail debridement Due to [...] use of a nail nipper and/or dremel-type grinder set up operator, to a more viable healthy nail plate [...] to maintain effectiveness in symptomatic relief - 97738 Keratoma Treatment Parring or Cutting o f [...] instrumentation by the physician of record - 48684, Q8 Progress Notes * Ag ANDRADE DDOB:[birth year] (79 yo M)Acc No.[id number]:11/26/2024 Progress Note Patient:?Ag ANDRADE D Provider:?Tania Gamboa DPM :1945???Age:79 Y???Sex:Male Joe e:11/26/2024 Address:[address] [place] [address], [id number] Pcp:Luiz Knowles Subjective: * Chief Complaints: * ???At Risk FootcarePainful N ail(s) aggrevated by shoes and causing difficulty standing/walking.Skin problem(s) * HPI: ???At Risk footcare:?Pt States Last PCP Visit:?Date?11/19/2024 ???Skin problems:?Nature:?scaling , redness, fissure left heel.?Location:?B/L .?Duration:?several months.?Course:?worse.?Treatments:?admits nonadherence to recommended application.? * ROS:?General/Constitutional:?Nausea?denies.?Vomiting?denies.?Hunger Thirst?denies.?Loss appetite?denies.?Chills?denies.?Fatigue?denies.?Fever?denies.?Night Sweats?denies.?Unexplained weight loss?denies.?Unexplained [...] replacement aneurysm repair * Hospitalization/Major Diagno stic Procedure:?No Hospitalization History. * Family History:?Mother: dece ased.?Father: , diagnosed with Other malignant neoplasm of unspecified site.? * Social History:?Tobacco Use:?Tobacco use other than smoking?Are you an other tobacco user??No ?Tobacco Control (Standard)?Tobacco use:?Nonsmoker ?Additional Findings: Tobacco non-user?Current nonsmoker ???Drugs/Alcohol:?Drugs?Have you used drugs other than those for medical reasons in the past 12 months??No ?Alcohol Screen?Did you have a drink containing alcohol in the past year??No ?Points?0 ?Interpretation?Negative ???Miscellaneous:?Caffeine: yes, 1 cup per day. ?Children: yes. ?Exercise: no. ?Marital status: . ?Occupation: Retired/ [employer]. * Medications:?TakingLORazepam 0.5 MG Tablet 2 tablets Orally Once a day Metoprolol Succinate 50 [...] Cream 1 application Externally Twice a day Ciclopirox Olamine 0.77 % Cream 1 application Externally Twice a day to skin of feet including between the toes Ammonium Lactate 12 % Cream 1 application Externally to affected areas of dry skin to feet except for between the toes Twice a day Taking LORazepam 0.5 MG Tablet 2 tablets Orally Once a day Taking Metoprolol Succinate [...] 1 application Externally Twice a day Taking Ciclopirox Olamine 0.77 % Cream 1 application Externally Twice a day to skin of feet including between the toes Taking Ammonium Lactate 12 % Cream 1 application Externally to affected areas of dry skin to feet except for between the toes Twice a day Not-Taking/PRNVentolin HFA Ammonium Lactate [...] Vitals:?Ht: 5 ft 9 in, Wt: 1 34, BMI: 19.79, Shoe size: 9.5, BP: 134/72 mm Hg, Wt-k.78 kg. * Examination: ???Vascular: ?DP PULSES (B):? 0/4, B/L.?PT PULSES (B):? 0/4, B/L.?CAPILLARY FILL TIME:? delayed, all digits, B/L.?TROPHIC CONDITION-TEXTURE/ELASTICITY/TURGOR/HAIR GROWTH (B):? decreased, B/L.?TEMPERTURE GRADIENT (C):? decreased, cool to cool, proximal to distal, B/L.?PIGMENTATION:?pale, B/L.?EDEMA (C):?2/4 , non-pitting , B/L , Ankle(s).?TAINA'S SIGN:?absent, B/L.?PALPABLE CORDS:?absent, B/L.?Nails: ?NAILS are:? Elongated, overgrown, dystrophic, lytic, greater than 3mm thick, discolored and friable with crumbly malodorous subungual debris, with pain on palpation,?TA, T1, T2, T3, T4, T5, T6, T7, T8, T9.?Dermatologic: ?SKIN FINDINGS:?Skin exam reveals Keratotic lesion(s) located at ,TA, T5, Sub 1st MTH, Heels, B/L??Skin shows sign(s) of, dryness, scaling, in a stocking fashion present, B/L? ?Skin shows sign(s) of, fissure with dried blood left plantar heels B/L , no active drainage, no signs of infection.?General Examination: ?GENERAL APPEARANCE:?Reveals a pleasant, alert, well [...] M79.675???5.?Pain in toe of right foot - M79.674??? Plan: * Treatment: * Procedures:?Debride Nail 6-10:?Nail debridement?Due to the [...] use of a nail nipper and/or dremel-type grinder set up operator, to a more viable healthy nail plate [...] to maintain effectiveness in symptomatic relief - 98146.?Keratoma Treatment:?Parring or Cutting of Benign Hyperkeratotic Lesion(s)?(-57) [...] instrumentation by the physician of record - 66817, Q8.? * Procedure Codes:?21885 DEBRI DE NAIL, 6 OR MORE, Modifiers: XS 62622 TRIM SKIN LESIONS, OVER 4, Modifiers: XS , Q8 * Preventive Medicine:? ??Counseling:?Discussion:?-13: Office or other outpatient visit for the evaluation and management of an established patient, which required a medically appropriate history and/or examination and LOW level of DECISION MAKING for: 1 STABLE ACUTE UNCOMPLICATED PROBLEM, 2 OR MORE MINOR PROBLEMS, OR 1 STABLE CHRONIC PROBLEM, THAT POSE(S) A LOW RISK FOR MORBIDITY/MORTALITY. The visit on the day of the [...] have encouraged the patient to call the office.?Xerosis:?AGAIN, The patient was counseled on the diagnosis, potential [...] verbalized that all answers were clearly understood. , Discussed with the Patient the issues that may arise if he/she does not treat their condition : Pain, fissues, infection and further break down of skin.? * Follow Up:?3 Months * Images: * Sign off status: Completed true * Provider:?Tania Gamboa DPM Date:? Generated for James talbot/Ashley/Rommel on:?12/05/2024 06:00 PM EDT History and Physical Notes * HPI (History of Present Illness) Category Sub-Category Detail Notes Category Not es Skin problems Nature: scaling , redness, fissure left heel Location: B/L Duration: several months Course: worse Treatments: admits nonadherence to recommended application At Risk footcare Pt States Last PCP Visit: Date: Examination Category Sub-Category Detail Notes Category Not es Neurological SENSORY: Neurological exa m reveals intact sensorium, pain sensation normal, vibration sensation intact, pinprick sensation is normal in the lower extremities, Pt denies, anesthesia, burning, paresthesia, tingling, B/L Dermatologic SKIN FINDINGS: Skin exam reveal s Keratotic lesion(s) located at ,TA, T5, Sub 1st MTH, Heels, B/L Skin shows sign(s) of, dryness, scaling, in a stocking fashion present, B/L Skin shows sign(s) of, fissure with dried blood left plantar heels B/L , no active drainage, no signs of infection General Examination GENERAL APPEARANCE: Reveals a pleasant, [...] malodorous subungual debris, with pain on palpation, TA, T1, T2, T3, T4, T5, T6, T7, T8, T9
--- OUTSIDE RECORDS SUMMARY | 2024-12-05 18:00 | XMS_ITS ---
Author [facility] Address [address] [place] [address] Care Team Providers Care Rn Cvor Name Role Phone Luiz Knowles Primary Care Provider [phone] Tania Gamboa [phone] Allergies Allergen (clinical drug ingredient) Drug/Non Drug [...] 05/21/2024 Encounters Encounter Location Date Provider Diagnosis [facility] [place] [address] [place] [address] 05/21/2024 Tania Gamboa Xerosis of skin L85. [...] Provider Name:Tania wheeler, 02/25/2025 03:30:00 PM, [address] [place], [address], Procedure Notes * Category Sub-Category Detail Notes Wart Treatment Procedure Verrucae were de brided to pin-point bleeding margins with sterile 15 surgical blade, silver nitrate chemocautery applied, recomm. immune-boosting meds such as zinc, recomm. follow up with topical chemosurgical agents, Pt defers any other forms of tx (76663) Debride Nail 6-10 Nail debridement Nail debridem ent performed extensively to reduce/remove overall nail length and girth, subungual debris, and necrotic tissue, by manual and electrical means with use of a nail nipper and/or dremel, to more viable healthy nail plate or bed tissue 6-10. Silver nitrate used for any petechial bleeding as necessary. Patient chooses, no pharmaceutical tx (80479) Keratoma Treatment Parring or Cutting o f Benign Hyperkeratotic Lesion(s) 87037 ( >4 Lesions) - The Benign hyperkeratotic lesions, as described above were pared, and/or cut utilizing a sterile #15 blade, tissue nippers, and/or dremel , Q8 Progress Notes * Ag ANDRADE DDOB:[birth year] (79 yo M)Acc No.[id number]:05/21/2024 Progress Note Patient:?Ag Andrade D Provider:?Tania Gamboa DPM :1945???Age:79 Y???Sex:Male Joe e:05/21/2024 Address:[address] [place] [address], [facility] Pcp:Luiz Knowles Subjective: * Chief Complaints: * [...] ?no Exercise. ?Marital status: . ?Occupation: Retired/ [employer]. * Medications:?TakingLORazepam 0.5 MG Tablet 1 tablet [...] as necessary. Patient chooses, no pharmaceutical tx (65284).?Keratoma Treatment:?Parring or Cutting of Benign Hyperkeratotic Lesion(s)?60362 ( >4 Lesions) - The Benign hyperkeratotic lesions, as described above were pared, and/or cut utilizing a sterile #15 blade, tissue nippers, and/or dremel , Q8.?Wart Treatment:?Procedure?Verrucae were debrided to pin-point bleeding margins with sterile 15 surgical blade, silver nitrate chemocautery applied, recomm. immune-boosting meds such as zinc, recomm. follow up with topical chemosurgical agents, Pt defers any other forms of tx (05439).? * Procedure Codes:?61480 DEBRI DE NAIL, 6 OR MORE, Modifiers: XS 73618 Wart Destruction, 1-14, Modifiers: XS 28430 TRIM SKIN LESIONS, OVER 4, Modifiers: XS , Q8 * Follow Up:?3 Months * Images: * Sign off status: Completed true * Provider:?Tania Gamboa, MANISHA Date:?06/2024 Generated for James talbot/Ashley/eTransmitting on:?12/05/2024 05:59 PM EDT History and Physical [...]
== END 2024-12-05 14:59 | disposition home or self-care (01) ==
LOC: HO.HCS 14:19
PROVIDERS: PCP Internal Medicine; Visit Provider Internal Medicine
DX: I35.0 Nonrheumatic aortic (valve) stenosis (principal); I25.10 Atherosclerotic heart disease of native coronary artery without angina pectoris; I71.40 Abdominal aortic aneurysm, without rupture, unspecified; I10 Essential (primary) hypertension
CPT/HCPCS: 99214; G2211

== ENCOUNTER → 2024-12-05 14:18 | Outpatient (BNVA) | payer MEDICARE, SELFPAY | PROVIDERS: PCP Internal Medicine; Visit Provider Internal Medicine | DX: I35.0 Nonrheumatic aortic (valve) stenosis (principal); I25.10 Atherosclerotic heart disease of native coronary artery without angina pectoris; I10 Essential (primary) hypertension; I71.40 Abdominal aortic aneurysm, without rupture, unspecified | CPT/HCPCS: 99212 ==

== ENCOUNTER → 2025-04-01 15:04 | Outpatient (REF) | payer MEDICARE, SELFPAY ==
--- NOTE | 2025-04-01 15:06 | CA_ITS ---
Transthoracic Echocardiogram Patient (Last, First, Middle): Ag Andrade D Gender: Male Date of : 1945 Age: 80 Procedure Date: 04/01/2025 Procedure Type: Transthoracic Echocardiogram Location: OP Height: 175.26 cm Weight: 59.88 kg BSA: 1.73 m2 Heart Rate: bpm BP: 140 / 80 mmHg Audio Visual Aide: BARBARA Referring MD: Haim Wilson MD Symptoms: I35.0 - Nonrheumatic aortic (valve) stenosis Study Quality: Good ECG Rhythm: Sinus Conclusions: - The left ventricular systolic function is hyperdynamic. The visually estimated ejection fraction is >70%. - The basal inferior and basal inferolateral segments are hypokinetic. - There is severe calcification of the aortic valve. There is severe aortic valve stenosis. - There is moderate mitral annular calcification. 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 Findings Left Ventricle Normal left ventricular cavity size. The left ventricular systolic function is hyperdynamic. The visually estimated ejection fraction is >70%. Evidence suggests grade I (mild) diastolic dysfunction. There is severe septal asymmetric hypertrophy. Wall Motion Rest Echo Findings The basal inferior and basal inferolateral segments are hypokinetic. Right Ventricle Normal right ventricular cavity size. There is mildly decreased right ventricular systolic function. Atria Both atria are normal in size. Aortic Valve There is severe calcification of the aortic valve. There is severe aortic valve stenosis. The mean gradient is 47 mmHg. The aortic valve area is 1.14 cm2. There is trace (trivial) aortic valve regurgitation. Dimensionless index 0.22. Mitral Valve There is moderate mitral annular calcification. There is trace mitral valve regurgitation. There is no mitral valve stenosis. Pulmonic Valve The pulmonic valve is likely normal. Tricuspid Valve There is mild tricuspid valve regurgitation. There is no evidence of pulmonary hypertension. Great Vessels There is moderate dilatation of the ascending aorta measuring 4.80 cm. Venous The inferior vena cava is normal in size and collapses greater than 50% with inspiration. Pericardium/Pleural There is no evidence of pericardial effusion. Prior Study Comparison Changes noted compared to prior study dated: 11/18/2024. Progression of aortic stenosis. Increase in ascending aortic size. Measurements 2D Linear Measurements IVSd: 1.74 0.6-0.9/0.6-1.0 cm LVIDd: 3.91 3.9-5.3/4.2-5.9 cm LVIDd Index: 2.26 2.4-3.2/2.2-3.1 cm/m2 LVIDs: 2.92 2.0-3.6 cm LVPWd: 1.08 0.7-1.1 cm LA Diam: 3.40 2.7-3.8/3.0-4.0 cm LAIDs Index: 1.97 1.5-2.3 cm/m2 LV Mass: 254.85 67-162/88-224 g LV Mass Index: 147.31 43-95/49-115 g/m2 LVOT Diam: 2.40 3.0+(-)1.3 cm 2D Systolic Function EF 4C: 62.80 >55% Mitral Valve MV Pk E: 0.38 MV PK A: 0.91 MV Decel Time: 201.00 E/A: 0.40 E'Lateral: 3.92 E'Medial: 3.59 E/E' Med: 10.50 E/E' Lat: 9.60 PHT: 59.00 MVA PHT: 3.73 Decel [place]: 1.88 Aortic Valve AoV Pk Keith: 4.29 AoV Mn Keith: 3.29 AoV VTI: 0.85 AoV Pk Grad: 74.00 Aov Mn Grad: 47.00 WANDER Cont.VTI: 1.14 LVOT LVOT Pk Keith: 0.94 LVOT Mn Keith: 0.71 LVOT VTI: 0.22 LVOT Pk Grad: 4.00 LVOT Mn Grad: 2.00 LVOT Diam: 2.40 LVOT Area: 4.52 Diastolic Function MV Pk E: 0.38 MV Pk A: 0.91 E/A: 0.40 E'Medial: 3.59 E/E' Med: 10.50 E' Laterial: 3.92 E/E' Lat: 9.60 Right Ventricle TAPSE (mm): 14.00 TVS' Keith: 8.00 Tricuspid Valve TR Pk Keith: 1.98 TR Pk Grad: 16.00 RA Press: 3.00 RVSP: 19.00 Great Vessels Aorta Ao Asc: 4.80 2.1-3.4 cm Updated in Other Vendor System with Status of Final Haim Wilson MD electronically signed on 04/03/2025 11:32:31 AM with status of Final
--- OUTSIDE RECORDS SUMMARY | 2025-04-01 16:08 | XMS_ITS | Clinical Summary ---
Author Organization [facility] Address [address] [place] [address] Care Team Providers Care Mri Manager Name Role Phone Unavailable Primary Care Provider Unavailabl e Social History Tobacco Use Types Packs/Day Years Used Date Smoking Tobacco: Never Assessed Sex and Gender Information Value Date Recorded Sex Assigned at Not on file Legal Sex Male 12:10 PM EDT Gender Identity Not on file Sexual Orientation [...]
== END ==
LOC: HO.CARD 15:04
PROVIDERS: PCP Internal Medicine; Visit Provider Internal Medicine
DX: I35.0 Nonrheumatic aortic (valve) stenosis (principal)
CPT/HCPCS: 93306

== ENCOUNTER → 2025-04-01 15:06 | Outpatient (BNV) | payer MEDICARE, SELFPAY | PROVIDERS: PCP Internal Medicine; Visit Provider Internal Medicine | DX: I35.0 Nonrheumatic aortic (valve) stenosis (principal); I34.81 Nonrheumatic mitral (valve) annulus calcification; I71.21 Aneurysm of the ascending aorta, without rupture; I36.1 Nonrheumatic tricuspid (valve) insufficiency | CPT/HCPCS: 93306 ==

== ENCOUNTER 2025-04-10 15:20 | Outpatient (AMB) | payer MEDICARE, SELFPAY ==
--- OUTSIDE RECORDS SUMMARY | 2025-04-10 15:27 | XMS_ITS | Patient Health Record ---
[facility] [place] Address [address] [place] [address] Care Team Providers Care Identifier Horse Name Role Phone Luiz Knowles Primary Care Provider [phone] Tania Gamboa Unavailable [phone] Allergies Allergen (clinical drug ingredient) Drug/Non Drug Allergy documented on EMR Reaction Allergy Type Onset Date Status Substance with penicillin structure and antibacterial mechanism of action (substance) Penicillins anaphylaxis Drug Allergy Active Reason For Referral No Information Medications Medication SIG (Take, Route, Frequency, Duration) Notes Start Date End Date Status LORazepam 0.5 MG 2 tablets Orally Onc e a day Active Ammonium Lactate 12 % 1 application to affected area Externally to feet Twice a day; Duration: 30 days Not-Taking Metoprolol Succinate 50 MG 1 capsule Orally Once a day; Duration: 30 day(s) Active Flomax 0.4 MG 1 capsule Orally Onc e a day; Duration: 30 day(s) Active Omeprazole 20 MG 1 capsule 30 minutes before morning meal Orally Once a day; Duration: 30 day(s) Active Zolpidem Tartrate 5 MG 1 tablet at bedti me Orally Once a day Active Symbicort Active Lisinopril 20 MG as directed Orally Active Ammonium Lactate 12 % 1 application Exte rnally Twice a day; Duration: 30 days Active Ciclopirox Olamine 0.77 % 1 application Externally Twice a day to skin of feet including between the toes; Duration: 30 days Active Ammonium Lactate 12 % 1 application Exte rnally to affected areas of dry skin to feet except for between the toes Twice a day; Duration: 30 days Active Ventolin HFA Not-[place]if[place] ing Immunizations Vaccine Route Administration Date Status Comme nts Influenza Unknown 02/25/2025 Refused Social History Tobacco Use: Social History Observation [...] Problem Status W/U Status Risk Notes Problem Acquired hammer toe of left foot ([id number]) Hammertoe of left foot (M20.42) Active confirmed Problem Bilateral atherosclerosis of arteries of lower limbs (disorder) ([id number] ) Atherosclerosis of artery of both lower extremities (I70.203) Active confirmed Vital Signs Blood pressure diastolic 80 mm Hg 02/25/2025 Height 5 ft 9 in in 02/25/2025 Blood pressure systolic 134 mm Hg 02/25/2025 Weight 138 lbs 02/25/2025 BMI 20.38 kg/m2 02/25/2025 Encounters Encounter Location Date Provider Diagnosis [address] [address] 05/21/2024 Tania Perica Xerosis of skin L85. 3 ; Atherosclerosis of artery of both lower extremities I70.203 ; Tinea unguium B35.1 ; Pain in toe of left foot M79.675 ; Pain in toe of right foot M79.674 ; Other viral warts B07.8 ; Pain in left foot M79.672 and Hammertoe of left foot M20.[address] [address] 08/27/2024 Tania Gamboa Xerosis of skin L85. 3 ; Atherosclerosis of artery of both lower extremities I70.203 ; Tinea unguium B35.1 ; Pain in toe of left foot M79.675 ; Pain in toe of right foot M79.674 ; Other viral warts B07.8 ; Pain in left foot M79.672 and Tinea pedis of both feet B35.[address] [address] 11/26/2024 Tania Gamboa Xerosis of skin L85. 3 ; Atherosclerosis of artery of both lower extremities I70.203 ; Tinea unguium B35.1 ; Pain in toe of left foot M79.675 and Pain in toe of right foot M79.674 [facility] [place] [address] [place] [address] 02/25/2025 Tania Gamboa Atherosclerosis of artery of both lower extremities [...] of both lower extremities (ICD-10 - I70.203) 02/25/2025 Tinea unguium (ICD-10 - B35.1) 02/25/2025 Atherosclerosis of artery of both lower extremities (ICD-10 - I70.203) 02/25/2025 Pain in toe of left foot (ICD-10 - M79.675) 11/26/2024 Tinea unguium (ICD-10 - B35.1) 08/27/2024 Tinea unguium (ICD-10 - B35.1) 05/21/2024 Tinea unguium (ICD-10 - B35.1) 05/21/2024 Pain in toe of left foot (ICD-10 - M79.675) 08/27/2024 Pain in toe of left foot (ICD-10 - M79.675) 11/26/2024 Pain in toe of left foot (ICD-10 - M79.675) 02/25/2025 Pain in toe of right foot (ICD-10 - M79.674) 11/26/2024 Pain in toe of right foot [...] Treatment Next Appt Details Provider Name:Tania wheeler, 06/03/2025 03:00:00 PM, [address] [place] [address], [phone], Insurance Providers Payer Name Payer Address Payer Phone Subscriber Number Group Number Insured Name Patient Relationship to Insured Coverage Start Date Coverage End Date Medicare National [employer] [address] [place] [address] [id number] Ag Garcia Self - patient is the insured Med [employer] [address] [place] [address] [id number] Ag Garcia Self - patient is the insured Medical (General) History Medical History History ICD Code Anxiety Cataracts Measles Mumps Chicken pox Joint implants/screws Transfusions Surgical History Surgery Date(Month/Year) hernia hip replacement aneurysm repair
--- OUTSIDE RECORDS SUMMARY | 2025-04-10 15:27 | XMS_ITS | Clinical Summary ---
Author Organization [facility] Address [address] [place] [address] Care Team Providers Care Leg Man Name Role Phone Unavailable Primary Care Provider [...]
--- NOTE | 2025-04-10 15:31 | A.OFFVIS_ITS ---
Vital Signs 04/10/25 15:33 Height 5 ft 9 in Weight 130 lb BMI 19.2 BP 138/70 Blood Pressure Location Lt brachial Position Sitting Pulse 62 Pulse Source Pulse Oximeter Intake Visit Reasons: follow up echo prior Allergies penicillin G (Penicillin G) Allergy (Severe, Verified 12/02/24 09:47) ANAPHYLAXIS penicillamine Allergy (Unknown, Verified 12/02/24 09:47) anaphylaxis penicillin V Allergy (Unknown, Verified 12/02/24 09:47) anphylaxis Medication List - Last Reconciled 04/10/25 by Haim Wilson MD albuterol sulfate 90 mcg/actuation 2 puffs PO Q6H PRN atorvastatin (Lipitor) 5 mg (1/2 x 10 mg) PO BEDTIME 30 days budesonide-formoterol 160-4.5 mcg/actuation (Symbicort) 2 puffs PO BID lisinopril 40 mg (2 x 20 mg) PO DAILY 90 days lorazepam 0.5 mg PO BID PRN 30 days metoprolol succinate ER 50 mg PO DAILY omeprazole 20 mg PO DAILY tamsulosin 0.8 mg (2 x 0.4 mg) PO DAILY zolpidem 5 mg PO BEDTIME HPI Comments Details: Ag returns for follow-up regarding coronary artery disease and aortic stenosis. Overall, he is generally stable but he still has a shortness of breath with activity but he believes it is more from his COPD than anything else. Otherwise, quite frail from age and also has hardness of hearing. He is brought to significant other but she is deaf. Otherwise, getting along okay. Recently completed another echocardiogram that shows progressive severe aortic stenosis with enlarging ascending aortic aneurysm. [facility] Medical History (Updated 04/10/25 @ 15:55 by Haim Wilson MD) Magnesium deficiency Vitamin D deficiency Cataract Pre-operative clearance Peripheral vascular disease Onychomycosis Atherosclerotic cardiovascular disease Ex-smoker Essential hypertension Abdominal aortic aneurysm without rupture Ascending aorta dilatation Non-rheumatic aortic stenosis Erectile dysfunction Anxiety and depression Benzodiazepine dependence Hip osteoarthritis Hypothyroid COPD (chronic obstructive pulmonary disease) Thoracic aortic aneurysm Hypercholesteremia Insomnia GERD (gastroesophageal reflux disease) BPH loc w/o ur obs/LUTS Surgical History (Reviewed 12/05/24 @ 14:31 by Natasha Osuna [facility]) History of aortic aneurysm repair History of hip replacement History of hernia surgery Family History Mother No problems noted. Father No problems noted. Social History Housing: House Alcohol intake: never Patient Tobacco Use Status: Former Tobacco user e-Cigarette/Vaping Use: Never Used Second Hand Smoke Exposure: No service: No Current occupational status: retired Cognitive needs: Yes (cane) Hearing needs: Yes Vision needs: Yes (glasses) Review of Systems Const Reports weakness ENT Denies dizziness Card Denies chest pain, Denies chest pain with activity, Denies syncope, Denies rapid heart rate, Denies pedal edema, Denies edema, Denies leg edema, Denies lightheadedness, Denies palpitations, Denies dyspnea, Denies dyspnea on exertion and Denies orthopnea Resp Denies cough, Denies dyspnea and Denies dyspnea on exertion GI Denies hematochezia and Denies change in stool character Musc Denies abnormal gait, Denies muscle cramps, Denies muscle weakness, Denies numbness, Denies radiating pain into limb and Denies tingling Neuro Denies abnormal gait, Denies dizziness, Denies syncope, Denies numbness, Denies tingling and Reports weakness Endo Denies palpitations Physical Exam Vital Signs: Last Vital Signs Pulse 62 04/10/25 15:33 BP 138/70 04/10/25 15:33 BMI result Body Mass Index 19.2 Const General: comfortable and no acute distress Orientation/consciousness: patient oriented x3 HEENT Other: Unremarkable Head: Yes normal to inspection Neck Neck: Yes normal visual inspection Chest Chest palpation & inspection: normal inspection of the chest Resp Auscultation: clear to auscultation bilaterally Cardio Palpation: normal PMI Heart sounds: S1 normal heart sound present, S2 normal heart sound present, no gallops, Murmur heart sound present systolic III/ and at the right sternal border and no rubs GI Palpation (GI): Soft to palpation Back/Spine/Pelvis Other: unremarkable Skin General skin exam: no rashes or lesions noted Neuro General: patient oriented x3 Extrem General: Yes normal to inspection Psych Mental Status: mental status grossly normal Assessment & Plan Assessment & Plan (1) Non-rheumatic aortic stenosis: Code(s): I35.0 - Nonrheumatic aortic (valve) stenosis Category: Medical Plan: In the most recent echocardiogram, mean gradient across aortic valve 47 mm Hg. Dimensionless index was 0.22. Aortic valve area is 1.1 cm2, but it is because of the large LVOT diameter. He has got no overt symptoms but clearly has progressive severe aortic stenosis as previously mean gradient was only 33 mm Hg. High likelihood that he is going to need TAVR within the year. Main issue is frailty and comorbidities. We will refer to Interventional Cardiology for further evaluation. (2) Atherosclerotic cardiovascular disease: Code(s): I25.10 - Atherosclerotic heart disease of [place] coronary artery without angina pectoris Category: Medical Plan: Cardiac catheterization in the past had shown a chronically occluded RCA with collaterals from left. Mild to moderate disease in the LAD and circumflex. He was on statins in the past but had various side effects. Most recently, seems to be on a small dose. Lipids are well controlled. He needs to resume aspirin and we discussed about that today. (3) Ascending aortic aneurysm: Code(s): I71.21 - Aneurysm of the ascending aorta, without rupture Category: Medical Plan: In the recent echocardiogram, ascending aortic size 4.8 cm. In the previous study, it was 4.4 cm. When he gets a TAVR CTA, this will also need to be assessed. Either way, unlikely to be a candidate for any major aortic graft surgery. (4) Abdominal aortic aneurysm without rupture: Code(s): I71.4 - Abdominal aortic aneurysm, without rupture Category: Medical Plan: Status post endovascular repair. Follow-up [facility] vascular surgery. (5) Essential hypertension: Code(s): I10 - Essential (primary) hypertension Category: Medical Plan: It has been up and down at different times. He is on lisinopril and metoprolol. May need to probably add additional medications but also difficult to communicate as he is quite hard of hearing. Plan Discussion Notes I discussed with the patient the worsening condition of his heart valve and the need for a Transcatheter Aortic Valve Replacement (TAVR) procedure. We talked about the timeline for the procedure, which is expected to be within the year, and the necessary preparatory steps that will take several months. I also advised the patient to resume aspirin therapy for cardiovascular health. Patient was informed and verbally consented to the use of an ambient scribe for clinic note documentation during this visit. Patient Instructions: - Follow up with the specialist for evaluation of the heart valve condition. - Prepare for the Transcatheter Aortic Valve Replacement (TAVR) procedure within the year. - Resume taking aspirin as previously prescribed. Coding Level of Care Code Est Pt Level 5 (84284) Complex EM visit Add On G2211 Diagnoses Non-rheumatic aortic stenosis I35.0 Atherosclerotic cardiovascular disease I25.10 Ascending aortic aneurysm I71.21 Abdominal aortic aneurysm without rupture I71.4 Essential hypertension I10
[2025-04-10 15:33] VITALS: BP 138/70; PULSE 62; BMI 19.2
== END 2025-04-10 15:53 | disposition home or self-care (01) ==
PROVIDERS: PCP Internal Medicine; Visit Provider Internal Medicine
DX: I35.0 Nonrheumatic aortic (valve) stenosis (principal); I11.9 Hypertensive heart disease without heart failure; I25.10 Atherosclerotic heart disease of native coronary artery without angina pectoris; I71.21 Aneurysm of the ascending aorta, without rupture; Z95.828 Presence of other vascular implants and grafts
CPT/HCPCS: 99215; G2211

== ENCOUNTER → 2025-04-10 15:20 | Outpatient (BNVA) | payer MEDICARE, SELFPAY | PROVIDERS: PCP Internal Medicine; Visit Provider Internal Medicine | DX: I35.0 Nonrheumatic aortic (valve) stenosis (principal); I25.10 Atherosclerotic heart disease of native coronary artery without angina pectoris; I71.21 Aneurysm of the ascending aorta, without rupture; I71.40 Abdominal aortic aneurysm, without rupture, unspecified; I10 Essential (primary) hypertension | CPT/HCPCS: 99212 ==

== ENCOUNTER 2025-05-14 10:29 | Outpatient (AMB) | payer MEDICARE, SELFPAY ==
--- NOTE | 2025-05-14 10:48 | MHC.OFFVIS ---
Vital Signs 05/14/25 10:49 Height 5 ft 9 in Weight 132 lb 4.438 oz BMI 19.5 BP 160/90 H Blood Pressure Location Lt brachial Position Sitting Pulse 73 Pulse Source Monitor Intake Visit Reasons: TAVR consult / HS(only could come late pm??) Intake Note: TAVR CONSULT. Analysis Director Required: No Accompanied by: Spouse Allergies penicillin G (Penicillin G) Allergy (Severe, Verified 12/02/24 09:47) ANAPHYLAXIS penicillamine Allergy (Unknown, Verified 12/02/24 09:47) anaphylaxis penicillin V Allergy (Unknown, Verified 12/02/24 09:47) anphylaxis Medication List - Last Reconciled 05/14/25 by Sam Giang MD albuterol sulfate 90 mcg/actuation 2 puffs PO Q6H PRN atorvastatin (Lipitor) 5 mg (1/2 x 10 mg) PO BEDTIME 30 days budesonide-formoterol 160-4.5 mcg/actuation (Symbicort) 2 puffs PO BID lisinopril 40 mg (2 x 20 mg) PO DAILY 90 days lorazepam 0.5 mg PO BID 30 days metoprolol succinate ER 50 mg PO DAILY omeprazole 20 mg PO DAILY tamsulosin 0.8 mg (2 x 0.4 mg) PO DAILY zolpidem 5 mg PO BEDTIME HPI Comments Details: Pleasant 80 year gentleman who is here for severe aortic valve stenosis and TAVR consult. He has background history of COPD and has dyspnea on exertion. He said he quit smoking many years ago. He also is a vasculopath and previously had abdominal aortic aneurysm repaired. He also had ascending aortic aneurysm which is 4.8 cm by echocardiography done in March 2025. By echocardiography in March he had aortic valve area of 1. Cm2, mean gradient 47 mm Hg and dimensionless index of 0.22. His previous echocardiography from November 2024 showed aortic valve area of 0.87 with mean gradient of 33 and dimensionless index of 0.23. He has been experiencing dyspnea with activities. He does not have any chest discomfort or syncope. He is quite hard of hearing. He occasionally gets bleeding from hemorrhoids when he is constipated. His blood pressure is elevated. He had cardiac catheterization in the past when he was found to have a chronically occluded right coronary artery with collaterals from left system and [id number] disease in the LAD and circumflex vessels. As mentioned he is denying any anginal symptoms. [facility] Medical History (Updated 04/10/25 @ 15:55 by Haim Wilson MD) Magnesium deficiency Vitamin D deficiency Cataract Pre-operative clearance Peripheral vascular disease Onychomycosis Atherosclerotic cardiovascular disease Ex-smoker Essential hypertension Abdominal aortic aneurysm without rupture Ascending aorta dilatation Non-rheumatic aortic stenosis Erectile dysfunction Anxiety and depression Benzodiazepine dependence Hip osteoarthritis Hypothyroid COPD (chronic obstructive pulmonary disease) Thoracic aortic aneurysm Hypercholesteremia Insomnia GERD (gastroesophageal reflux disease) BPH loc w/o ur obs/LUTS Surgical History History of aortic aneurysm repair History of hip replacement History of hernia surgery Family History Mother No problems noted. Father No problems noted. Social History Housing: House Alcohol intake: never Patient Tobacco Use Status: Former Tobacco user e-Cigarette/Vaping Use: Never Used Second Hand Smoke Exposure: No service: No Current occupational status: retired Cognitive needs: Yes (cane) Hearing needs: Yes Vision needs: Yes (glasses) Review of Systems Const Denies chills, Denies fatigue, Denies fever(s), Denies frequent falls, Denies weakness, Denies weight gain and Denies weight loss ENT Denies dizziness Card Denies chest pain, Denies leg edema, Denies lightheadedness, Denies palpitations, Reports dyspnea and Denies dyspnea on exertion Resp Denies cough, Reports dyspnea and Denies dyspnea on exertion GI Denies hematochezia Musc Denies abnormal gait, Denies muscle weakness, Denies numbness, Denies radiating pain into limb and Denies tingling Neuro Denies abnormal gait, Denies dizziness, Denies frequent falls, Denies numbness, Denies tingling and Denies weakness Endo Denies fatigue and Denies palpitations Physical Exam Vital Signs: Last Vital Signs Pulse 73 05/14/25 10:49 BP 160/90 H 05/14/25 10:49 BMI result Body Mass Index 19.5 GENERAL APPEARANCE: in no acute distress, frail appearing.. NECK: no carotid bruit, no jugular venous distention. SKIN: no suspicious lesions, warm and dry. HEART: Ejection systolic murmur with absent 2nd heart sound, regular rate and rhythm. LUNGS: clear to auscultation bilaterally. Diminished breath sounds. ABDOMEN: soft, nontender. EXTREMITIES: no edema. PERIPHERAL PULSES: equal. NEUROLOGIC: No gross deficits, AAO X 3 Office Procedures EKG Details: Sinus rhythm 73 beats per minute, left anterior fascicular block, left ventricular hypertrophy, lateral T-wave changes likely due to repolarization abnormality, anteroseptal infarct, QTC 453 milliseconds. [id number], Complete Assessment & Plan Assessment & Plan (1) Essential (primary) hypertension: Code(s): I10 - Essential (primary) hypertension Category: Medical (2) Non-rheumatic aortic stenosis: Code(s): I35.0 - Nonrheumatic aortic (valve) stenosis Category: Medical (3) Ascending aorta dilatation: Code(s): I77.810 - Thoracic aortic ectasia Category: Medical (4) Abdominal aortic aneurysm without rupture: Code(s): I71.4 - Abdominal aortic aneurysm, without rupture Category: Medical (5) Bilateral carotid artery stenosis: Code(s): I65.23 - Occlusion and stenosis of bilateral carotid arteries Category: Medical Plan [age] year gentleman here for management of severe aortic valve stenosis. He has recent echocardiography has shown a valve area of 1.1 cm2 with mean gradient 47 mm Hg and dimensionless index of 0.22. His aortic valve area previously was calculated at 0.87 cm2 in November of 2024. He has dyspnea on exertion which is more prominent than before. He is saying that he would be able to walk a block but he has not done that level of physical activity recently. He is a vasculopath and has abdominal aortic aneurysm repair, moderate bilateral carotid artery stenosis and also has ascending aortic aneurysm of 4.8 cm. We discussed about management of aortic valve stenosis. By exam he has severe . I have given an options between surgical management versus transcatheter aortic valve replacement. I think he is more suitable for transcatheter aortic valve replacement given significant comorbidities and vascular disease. I have quoted him pros and cons of the procedure and he is interested in transcatheter aortic valve replacement. We will arrange a TAVR protocol CT for him and refer him for surgical consultation. His blood pressure is elevated and I am adding amlodipine 2.5 mg daily. Thank you for allowing me to participate in the care of your patient. Please feel free to contact me if you have any questions. Medications: New amlodipine 2.5 mg PO DAILY 60 tabs 3RF Coding Level of Care Code New Pt Level 5 (87934) Diagnoses Essential (primary) hypertension I10 Non-rheumatic aortic stenosis I35.0 Ascending aorta dilatation I77.810 Abdominal aortic aneurysm without rupture I71.4 Bilateral carotid artery stenosis I65.23 CPT Codes EKG - CPT: [id number], Complete ([id number])
[2025-05-14 10:49] VITALS: BP 160/90; PULSE 73; BMI 19.5
--- OUTSIDE RECORDS SUMMARY | 2025-05-14 12:17 | XMS_ITS | Encounter Summary ---
Author Organization [facility] Address [address] [place] [address] Care Team Providers Care Weights And Measures Sealer Name Role Phone Unavailable Primary Care Provider Unavailabl e Reason for Visit * Reason Comments Medication Refill Encounter Details Date Type Department Care Team (Late st Contact Info) Description 09/12/[address] [address] Luiz Knowles MD [address] [place] [address] Social History Tobacco Use Types Packs/Day Years [...]
--- OUTSIDE RECORDS SUMMARY | 2025-05-14 12:17 | XMS_ITS | Encounter Summary ---
Author Organization [facility] Address [address] [place] [address] Care Team Providers Care Ovens Supervisor Name Role Phone Unavailable Primary Care Provider Unavailabl e Reason for Visit * Reason Comments Medication Refill Encounter Details Date Type Department Care Team (Late st Contact Info) Description 07/09/2019 Refill [facility] Medical [address] [address] Luiz Knowles MD [address] [place] [address] Social History Tobacco Use Types Packs/Day Years [...]
--- OUTSIDE RECORDS SUMMARY | 2025-05-14 12:17 | XMS_ITS | Encounter Summary ---
Author Organization [facility] Address [address] [place] [address] Care Team Providers Care Screw Eye Assembler Name Role Phone Unavailable Primary Care Provider Unavailabl e Reason for Visit * Reason Comments Medication Refill Encounter Details Date Type Department Care Team (Late st Contact Info) Description 06/06/[address] [address] Luiz Knowles MD [address] [place] [address] Social History Tobacco Use Types Packs/Day Years [...]
--- OUTSIDE RECORDS SUMMARY | 2025-05-14 12:17 | XMS_ITS | Encounter Summary ---
Author Organization [facility] Address [address] [place] [address] Care Team Providers Care Land Clearer Name Role Phone Unavailable Primary Care Provider Unavailabl e Reason for Visit * Reason Comments Medication Refill Encounter Details Date Type Department Care Team (Late st Contact Info) Description 09/11/[address] [address] Luiz Knowles MD [address] [place] [address] Social History Tobacco Use Types Packs/Day Years [...]
--- OUTSIDE RECORDS SUMMARY | 2025-05-14 12:17 | XMS_ITS | Clinical Summary ---
Author Organization [facility] Address [address] [place] [address] Care Team Providers Care Corn Husker Name Role Phone Unavailable Primary Care Provider [...]
--- OUTSIDE RECORDS SUMMARY | 2025-05-14 12:17 | XMS_ITS | Encounter Summary ---
Author Organization [facility] Address [address] [place] [address] Care Team Providers Care Motion Picture Scene Builder Name Role Phone Unavailable Primary Care Provider Unavailabl e Reason for Visit * Reason Comments Medication Refill Encounter Details Date Type Department Care Team (Late st Contact Info) Description 07/29/2019 Refill [facility] Medical [address] [address] Luiz Knowles MD [address] [place] [address] Social History Tobacco Use Types Packs/Day Years [...]
== END 2025-05-14 11:21 | disposition home or self-care (01) ==
LOC: HO.HCS 10:30
PROVIDERS: PCP Internal Medicine; Visit Provider Internal Medicine Cardiovascular Disease
DX: I10 Essential (primary) hypertension (principal); I35.0 Nonrheumatic aortic (valve) stenosis; I77.810 Thoracic aortic ectasia; I65.23 Occlusion and stenosis of bilateral carotid arteries; I44.4 Left anterior fascicular block; I71.40 Abdominal aortic aneurysm, without rupture, unspecified
CPT/HCPCS: 93010; 99204

== ENCOUNTER → 2025-05-14 10:29 | Outpatient (BNVA) | payer MEDICARE, SELFPAY | PROVIDERS: PCP Internal Medicine; Visit Provider Internal Medicine Cardiovascular Disease | DX: I35.0 Nonrheumatic aortic (valve) stenosis (principal); I10 Essential (primary) hypertension; I77.810 Thoracic aortic ectasia; I65.23 Occlusion and stenosis of bilateral carotid arteries; Z87.891 Personal history of nicotine dependence; Z86.79 Personal history of other diseases of the circulatory system; Z98.890 Other specified postprocedural states | CPT/HCPCS: 93005; 99202 ==

== ENCOUNTER 2025-07-16 15:10 | Outpatient (REF) | payer MEDICARE, SELFPAY ==
--- OUTSIDE RECORDS SUMMARY | 2025-06-03 10:00 | XMS_ITS ---
Author Organization [facility] Address [address] [place] [address] Care Team Providers Care Forensic Economist Name Role Phone Luiz Knowles Primary Care Provider Tania Gamboa [phone] Encounters Encounter Location Date Provider Diagnosis [facility] [address] [place] [address] 06/03/2025 Tania Gamboa Plan Of Treatment No Information Progress Notes * Ag ANDRADE DDOB:[birth year] (80 yo M)Acc No.[id number]:06/03/2025 Progress Note Patient: Lázaro MCDANIELAg PACE Provider: Yun Gamboa DPM :1945 A ge:80 Y S ex:Male Date:06/03/2025 Address:[address] [place], [place] [id number] Pcp:Luiz Knowles Subjective: * Chief Complaints: * * Medical History: Objective: * Vitals: Assessment: Plan: * Treatment: * Images: * The named appointment provid er may or may not be the originator of this progress note, and it is not deemed complete until electronically signed by the appointment provider. Sign off status: Pending * Provider: Yun Gamboa DPM Date: 0 06/03/2025 Generated for James talbot/Ashley/eTransmitting on: 09/15/2024 06:10 PM EST
[2025-07-16 15:56] LABS: NRBC Abs Auto 0.000 X10*3/uL (0.0-0.012); NRBC Pct Auto 0.0 /100WBC (0.0-0.2)
[2025-07-16 15:58] LABS: Hematocrit 40.2 % (42.0-52.0); Hemoglobin 13.0 g/dl (14.0-18.0); Mean Corpuscular HGB Conc 32.3 g/dl (31.0-36.0); Mean Corpuscular Hemoglobin 29.1 pg (27.0-33.0); Mean Corpuscular Volume 89.9 fL (80.0-98.0); PLT CLUMP 1; Red Blood Count 4.47 X10*6/uL (4.60-5.80)
[2025-07-16 16:17] LABS: INTERNATIONAL NORM RATIO 1.1 (0.9-1.1); Prothrombin Time 13.3 SEC (11.2-13.5)
[2025-07-16 16:37] LABS: Anion Gap 14 (12-20); Blood Urea Nitrogen 17 mg/dL (9-16); Calcium 9.2 mg/dL (8.4-10.2); Carbon Dioxide 27 mmol/L (22-29); Chloride 102 mmol/L (96-108); Estimated Glomerular Filt Rate > 60; Potassium 5.3 mmol/L (3.3-5.1); Sodium 138 mmol/L (135-145)
[2025-07-16 16:42] LABS: PLT ABN DIST 1; Platelet Count 110 X10*3/uL (160-400); White Blood Count 8.0 X10*3/uL (4.8-10.8)
--- OUTSIDE RECORDS SUMMARY | 2025-07-16 18:11 | XMS_ITS | Patient Health Record ---
Author Organization [facility] [place] Address [address] [facility] [place] [address] Care Team Providers Care Calliope Player Name Role Phone Luiz Knowles Primary Care Provider Tania Gamboa Unavailable [phone] Allergies Allergen (clinical drug ingredient) Drug/Non Drug [...] Problem Acquired hammer toe of left foot (2214170446496740) Hammertoe of left foot (M20.42) Active confirmed Problem Bilateral atherosclerosis of arteries of lower limbs (disorder) (31653121382524459 ) Atherosclerosis of artery of both lower extremities (I70.203) Active confirmed Vital Signs Blood pressure diastolic 80 mm Hg 02/25/2025 Height 5 ft 9 in in 02/25/2025 Blood pressure systolic 134 mm Hg 02/25/2025 Weight 138 lbs 02/25/2025 BMI 20.38 kg/m2 02/25/2025 Encounters Encounter Location Date Provider Diagnosis [address] [address] 08/27/2024 Tania Perica Xerosis of skin L85. 3 ; Atherosclerosis of artery of both lower extremities I70.203 ; Tinea unguium B35.1 ; Pain in toe of left foot M79.675 ; Pain in toe of right foot M79.674 ; Other viral warts B07.8 ; Pain in left foot M79.672 and Tinea pedis of both feet B35.[address] [address] 11/26/2024 Tania Perica Xerosis of skin L85. 3 ; Atherosclerosis of artery of both lower extremities I70.203 ; Tinea unguium B35.1 ; Pain in toe of left foot M79.675 and Pain in toe of right foot M79.[address] [address] 02/25/2025 Tania Perica Atherosclerosis of artery of both lower extremities I70.203 ; Tinea unguium B35.1 ; Pain in toe of left foot M79.675 and Pain in toe of right foot M79.674 [facility] [place] [id number] [address] [address] 06/03/2025 Tania Gamboa Assessments Encounter Date Diagnosis (ICD [...] B35.1) 08/27/2024 Tinea unguium (ICD-10 - B35.1) 08/27/2024 [...] feet (ICD-10 - B35.3) Plan Of Treatment No Information Insurance Providers Payer Name Payer Address Payer Phone Subscriber Number Group Number Insured Name Patient Relationship to Insured Coverage Start Date Coverage End Date Medicare [employer] [address] [facility] [place] [address] [id number] Ag Garcia Self - patient is the insured [facility] [address] [place] [address] [phone] [id number] Ag Garcia Self - patient is the insured Medical (General) History Medical History History ICD Code Anxiety Cataracts Measles Mumps Chicken pox Joint implants/screws Transfusions Surgical History Surgery Date(Month/Year) hernia hip replacement aneurysm repair
== END 2025-07-16 15:11 | disposition home or self-care (01) ==
LOC: HO.LAB 15:10
PROVIDERS: PCP Internal Medicine; Visit Provider Internal Medicine Cardiovascular Disease
DX: I35.0 Nonrheumatic aortic (valve) stenosis (principal)
CPT/HCPCS: 36415; 80048; 85027; 85610

== ENCOUNTER → 2025-07-18 23:59 | Outpatient (BNV) | payer MEDICARE, SELFPAY | PROVIDERS: PCP Internal Medicine; Visit Provider Internal Medicine Cardiovascular Disease | DX: I25.10 Atherosclerotic heart disease of native coronary artery without angina pectoris (principal); I35.0 Nonrheumatic aortic (valve) stenosis | CPT/HCPCS: 93454; 99152 ==

== ENCOUNTER 2025-08-25 10:20 | Outpatient (AMB) | payer MEDICARE, SELFPAY ==
--- NOTE | 2025-08-25 10:41 | A.OFFVIS_ITS ---
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 Accompanied by: Self / Same As Patient Allergies penicillin G (Penicillin G) Allergy (Severe, Verified 12/02/24 09:47) ANAPHYLAXIS penicillamine Allergy (Unknown, Verified 12/02/24 09:47) anaphylaxis penicillin V Allergy (Unknown, Verified 12/02/24 09:47) anphylaxis Medication List - Last Reconciled 08/25/25 by Sam Giang MD albuterol sulfate 90 mcg/actuation 2 puffs PO Q6H PRN amlodipine 2.5 mg PO DAILY aspirin 81 mg PO DAILY atorvastatin (Lipitor) 5 mg (1/2 x 10 mg) PO BEDTIME 30 days budesonide-formoterol 160-4.5 mcg/actuation (Symbicort) 2 puffs PO BID lisinopril 40 mg (2 x 20 mg) PO DAILY lorazepam 0.5 mg PO BID 30 days metoprolol succinate ER 50 mg PO DAILY omeprazole 20 mg PO DAILY prednisone 50 mg PO DAILY tamsulosin 0.8 mg (2 x 0.4 mg) PO DAILY zolpidem 5 mg PO BEDTIME HPI Comments Details: Pleasant 80 year gentleman who is here for severe aortic valve stenosis and TAVR consult. He has background history of COPD and has dyspnea on exertion. He said he quit smoking many years ago. He also is a vasculopath and previously had abdominal aortic aneurysm repaired. He also had ascending aortic aneurysm which is 4.8 cm by echocardiography done in March 2025. By echocardiography in March he had aortic valve area of 1. Cm2, mean gradient 47 mm Hg and dimensionless index of 0.22. His previous echocardiography from November 2024 showed aortic valve area of 0.87 with mean gradient of 33 and dimensionless index of 0.23. He has been experiencing dyspnea with activities. He does not have any chest discomfort or syncope. He is quite hard of hearing. He occasionally gets bleeding from hemorrhoids when he is constipated. His blood pressure is elevated. He had cardiac catheterization in the past when he was found to have a chronically occluded right coronary artery with collaterals from left system and jaqb-tu-cjrotvyc disease in the LAD and circumflex vessels. As mentioned he is denying any anginal symptoms. 08/25/2025: he is here for follow-up. He was seen by cardiac surgery and was advised to do a carotid CTA. He has significant peripheral vascular disease with previous endovascular repair of abdominal aortic aneurysm. He has endovascular graft has iliac limbs which are significantly tortuous and after discussing in the heart team meeting it was concluded that he is not a candidate to do transfemoral approach. He continues to have some dyspnea with activities but he is saying that mostly this has been stable. No chest discomfort. No syncope. [facility] Medical History Magnesium deficiency Vitamin D deficiency Cataract Pre-operative clearance Peripheral vascular disease Onychomycosis Atherosclerotic cardiovascular disease Ex-smoker Essential hypertension Abdominal aortic aneurysm without rupture Ascending aorta dilatation Non-rheumatic aortic stenosis Erectile dysfunction Anxiety and depression Benzodiazepine dependence Hip osteoarthritis Hypothyroid COPD (chronic obstructive pulmonary disease) Thoracic aortic aneurysm Hypercholesteremia Insomnia GERD (gastroesophageal reflux disease) BPH loc w/o ur obs/LUTS Surgical History History of aortic aneurysm repair History of hip replacement History of hernia surgery Family History Mother No problems noted. Father No problems noted. Social History Housing: House Alcohol intake: never Patient Tobacco Use Status: Former Tobacco user e-Cigarette/Vaping Use: Never Used Second Hand Smoke Exposure: No service: No Current occupational status: retired Cognitive needs: Yes (cane) Hearing needs: Yes Vision needs: Yes (glasses) Review of Systems Const Denies chills, Denies fatigue, Denies fever(s), Denies frequent falls, Denies weakness, Denies weight gain and Denies weight loss ENT Denies dizziness Card Denies chest pain, Denies leg edema, Denies lightheadedness, Denies palpitations, Denies dyspnea and Denies dyspnea on exertion Resp Denies cough, Denies dyspnea and Denies dyspnea on exertion GI Denies hematochezia Musc Denies abnormal gait, Denies muscle weakness, Denies numbness, Denies radiating pain into limb and Denies tingling Neuro Denies abnormal gait, Denies dizziness, Denies frequent falls, Denies numbness, Denies tingling and Denies weakness Endo Denies fatigue and Denies palpitations Physical Exam Vital Signs: Last Vital Signs Pulse 71 08/25/25 10:43 BP 150/82 H 08/25/25 10:43 BMI result Body Mass Index 19.7 GENERAL APPEARANCE: in no acute distress, frail appearing.. NECK: no carotid bruit, no jugular venous distention. SKIN: no suspicious lesions, warm and dry. HEART: Ejection systolic murmur with absent 2nd heart sound, regular rate and rhythm. LUNGS: Crackles left base. ABDOMEN: soft, nontender. EXTREMITIES: no edema. PERIPHERAL PULSES: equal. NEUROLOGIC: No gross deficits, AAO X 3 Office Procedures EKG Details: Sinus rhythm 71 beats per min, left axis deviation, right bundle-branch block, anteroseptal infarct, QTC 456 milliseconds. [id number], Complete Assessment & Plan Assessment & Plan (1) Essential (primary) hypertension: Code(s): I10 - Essential (primary) hypertension Category: Medical (2) Non-rheumatic aortic stenosis: Code(s): I35.0 - Nonrheumatic aortic (valve) stenosis Category: Medical (3) Ascending aorta dilatation: Code(s): I77.810 - Thoracic aortic ectasia Category: Medical (4) Abdominal aortic aneurysm without rupture: Code(s): I71.4 - Abdominal aortic aneurysm, without rupture Category: Medical (5) Bilateral carotid artery stenosis: Code(s): I65.23 - Occlusion and stenosis of bilateral carotid arteries Category: Medical Plan [age] gentleman here for management of severe aortic valve stenosis. He has severe aortic valve stenosis by echocardiography. He is a vasculopath and previously had abdominal aortic aneurysm repair with endograft. He is not a candidate for transfemoral aortic valve replacement based on CT scan assessment. We discussed him in the heart team meeting along with vascular surgery. His options are transcarotid or subclavian transcatheter aortic valve replacement. He was advised to do a CT scan of carotids but he wished to do it at [place]. I discussed with him that it is better to do it at [facility] and he is agreeable. We will arrange the carotid CTA at [facility]. Once the CT scan is done we will see whether he has any reasonable options for transcatheter aortic valve replacement. Continue same medications for now. Thank you for allowing me to participate in the care of your patient. Please feel free to contact me if you have any questions. Coding Level of Care Code Est Pt Level 4 (62229) Diagnoses Essential (primary) hypertension I10 Non-rheumatic aortic stenosis I35.0 Ascending aorta dilatation I77.810 Abdominal aortic aneurysm without rupture I71.4 Bilateral carotid artery stenosis I65.23 CPT Codes EKG - CPT: [id number], Complete ([id number])
[2025-08-25 10:43] VITALS: BP 150/82; PULSE 71; BMI 19.7
== END 2025-08-25 11:10 | disposition home or self-care (01) ==
PROVIDERS: PCP Internal Medicine; Visit Provider Internal Medicine Cardiovascular Disease
DX: I10 Essential (primary) hypertension (principal); I35.0 Nonrheumatic aortic (valve) stenosis; I77.810 Thoracic aortic ectasia; I71.40 Abdominal aortic aneurysm, without rupture, unspecified; I65.23 Occlusion and stenosis of bilateral carotid arteries
CPT/HCPCS: 93010; 99214

== ENCOUNTER → 2025-08-25 10:20 | Outpatient (BNVA) | payer MEDICARE, SELFPAY | PROVIDERS: PCP Internal Medicine; Visit Provider Internal Medicine Cardiovascular Disease | DX: I10 Essential (primary) hypertension (principal); I35.0 Nonrheumatic aortic (valve) stenosis; I77.810 Thoracic aortic ectasia; I65.23 Occlusion and stenosis of bilateral carotid arteries | CPT/HCPCS: 93005; 99212 ==